=== PATIENT | female | born 1955 | race Caucasian/White ===

== ENCOUNTER 2018-12-28 15:18 | Outpatient (REF) | payer MEDICARE, MEDICAID, SELFPAY ==
[2018-12-28 19:32] LABS: COMMENT (LAB VIEW ONLY) 148.12 mg/dL; Microalb ug/mg Crea 4.3 ug/mg Cr
== END 2018-12-28 15:38 ==
LOC: NCHCN 15:18
PROVIDERS: PCP Nurse Practitioner Family; Visit Provider Nurse Practitioner Family
DX: E11.9 Type 2 diabetes mellitus without complications (principal)
CPT/HCPCS: 82043; 82570

== ENCOUNTER 2019-02-28 14:12 | Outpatient (REF) | payer MEDICARE, MEDICAID, SELFPAY ==
[2019-02-28 19:12] LABS: HCT 44.7 % (36.0-46.0); HGB 14.3 g/dL (12.0-15.5); Mean Corpuscular Hemoglobin 28.8 pg (27.0-33.0); Mean Corpuscular Volume 90.1 fL (80-95); Mean Platelet Volume 10.4 fL (8.0-11.0); Platelet Count 269 x1000/uL (130-400); RBC 4.96 m/cumm (4.00-5.20); RBC Distribution Width 13.5 % (11.7-14.6); White Blood Cell Count 10.55 k/cumm (4.4-10.8)
[2019-02-28 19:24] LABS: ALT 16 U/L (12-78); AST 9 U/L (15-37); Albumin 3.6 g/dL (3.4-5.0); Alkaline Phosphatase 91 U/L (46-116); Anion Gap 8.7 mmol/L (3-11); BUN 17 mg/dL (7-18); Bilirubin, Total 0.3 mg/dL (0.2-1.0); CO2 29.3 mmol/L (21.0-32.0); CREATININE 0.82 mg/dL (0.55-1.02); Chloride 100 mmol/L (98-107); Glucose 224 mg/dL (70-100); Potassium 4.5 mmol/L (3.5-5.1); Sodium 138 mmol/L (136-145); Total Protein 7.1 g/dL (6.4-8.2)
== END 2019-02-28 14:32 ==
LOC: NCHCN 14:12
PROVIDERS: PCP Nurse Practitioner Family; Visit Provider Nurse Practitioner Family
DX: R07.9 Chest pain, unspecified (principal)
CPT/HCPCS: 80053; 85027

== ENCOUNTER 2019-09-05 16:07 | Outpatient (REF) | payer MEDICARE, MEDICAID, SELFPAY ==
[2019-09-05 19:10] LABS: Anion Gap 4.9 mmol/L (3-11); BUN 15 mg/dL (7-18); CO2 32.1 mmol/L (21.0-32.0); CREATININE 0.85 mg/dL (0.55-1.02); Calcium 8.8 mg/dL (8.5-10.1); Chloride 104 mmol/L (98-107); Glucose 100 mg/dL (70-100); Potassium 4.3 mmol/L (3.5-5.1); Sodium 141 mmol/L (136-145); TSH 1.45 uIU/mL (0.36-3.74)
== END 2019-09-05 16:27 ==
LOC: NCHCN 16:07
PROVIDERS: PCP Nurse Practitioner Family; Visit Provider Nurse Practitioner Family
DX: E11.9 Type 2 diabetes mellitus without complications (principal); E03.9 Hypothyroidism, unspecified; I10 Essential (primary) hypertension
CPT/HCPCS: 80048; 84443

== ENCOUNTER 2019-12-13 14:29 | Outpatient (REF) | payer MEDICARE, MEDICAID, SELFPAY ==
[2019-12-13 20:21] LABS: Abs Immature Grans 0.14 k/cumm (0.0-0.09); Absolute Monocyte Count 0.45 k/cumm (0.11-0.7); Basophils % 0.5; Eosinophils % 0.5; HCT 43.3 % (36.0-46.0); HGB 13.9 g/dL (12.0-15.5); Immature Grans % 1.1 %; Lymphocytes % 17.5; Mean Corp. HGB Concentration 32.1 g/dL (32.0-36.0); Mean Corpuscular Hemoglobin 29.1 pg (27.0-33.0); Mean Corpuscular Volume 90.6 fL (80-95); Mean Platelet Volume 10.1 fL (8.0-11.0); Monocytes % 3.5; Neutrophils % 76.9; Platelet Count 297 x1000/uL (130-400); RBC 4.78 m/cumm (4.00-5.20); RBC Distribution Width 13.9 % (11.7-14.6); White Blood Cell Count 12.94 k/cumm (4.4-10.8)
[2019-12-13 20:25] LABS: Absolute Basophil Count 0.06 k/cumm (0.0-0.2); Absolute Eosinophil Count 0.06 k/cumm (0.0-0.7); Absolute Lymphocyte Count 2.26 k/cumm (1.2-3.4); Absolute Neutrophil Count 9.95 k/cumm (1.2-6.7)
[2019-12-13 20:38] LABS: ALT 19 U/L (14-59); AST 10 U/L (15-37); Albumin 3.8 g/dL (3.4-5.0); Alkaline Phosphatase 86 U/L (46-116); Anion Gap 11.7 mmol/L (3-11); BUN 13 mg/dL (7-18); Bilirubin, Total 0.4 mg/dL (0.2-1.0); CO2 29.3 mmol/L (21.0-32.0); Calcium 8.9 mg/dL (8.5-10.1); Chloride 98 mmol/L (98-107); Glucose 214 mg/dL (74-106); Potassium 4.5 mmol/L (3.5-5.1); Sodium 139 mmol/L (136-145); Total Protein 7.3 g/dL (6.4-8.2)
== END 2019-12-13 14:49 ==
LOC: NCHCN 14:29
PROVIDERS: PCP Nurse Practitioner Family; Visit Provider Physician Assistant
DX: R10.30 Lower abdominal pain, unspecified (principal); R19.5 Other fecal abnormalities
CPT/HCPCS: 80053; 85025

== ENCOUNTER 2020-08-09 17:28 | Outpatient (REF) | payer MEDICARE, MEDICAID, SELFPAY ==
[2020-08-09 19:32] LABS: COMMENT (LAB VIEW ONLY) 92.66 mg/dL; Microalb ug/mg Crea 5.4 ug/mg Cr
== END 2020-08-09 17:48 ==
LOC: NCHCN 17:28
PROVIDERS: PCP Nurse Practitioner Family; Visit Provider Internal Medicine
DX: E11.9 Type 2 diabetes mellitus without complications (principal)
CPT/HCPCS: 82043; 82570

== ENCOUNTER 2021-02-11 18:52 | Outpatient (REF) | payer MEDICARE, MEDICAID, SELFPAY ==
[2021-02-13 18:31] LABS: COVID-19 RT-PCR UVMMC Result Negative (Negative)
== END 2021-02-11 18:53 | disposition home or self-care (01) ==
LOC: NCHCN 18:52
PROVIDERS: PCP Nurse Practitioner Family; Visit Provider Internal Medicine
DX: Z20.822 Contact with and (suspected) exposure to COVID-19 (principal)
CPT/HCPCS: U0003

== ENCOUNTER 2021-02-15 16:29 | Outpatient (REF) | payer MEDICARE, MEDICAID, SELFPAY ==
[2021-02-16 17:02] LABS: COVID-19 RT-PCR UVMMC Result Positive (Negative)
== END 2021-02-15 16:30 | disposition home or self-care (01) ==
LOC: NCHCN 16:29
PROVIDERS: PCP Nurse Practitioner Family; Visit Provider Internal Medicine
DX: Z20.822 Contact with and (suspected) exposure to COVID-19 (principal)
CPT/HCPCS: U0003; U0005

== ENCOUNTER 2021-02-18 10:11 | Outpatient (CLI) | payer MEDICARE, MEDICAID, SELFPAY ==
[2021-02-18 13:19] VITALS: BP 154/83; PULSE 85; RESP 24; TEMP 38.2; O2SAT 96
[2021-02-18] MEDS: Normal Saline Flush 10 ML SYR IVP (13:31)
[2021-02-18] MEDS: Normal Saline 500 ML 30 ML IV (13:31)
[2021-02-18 13:38] VITALS: BP 125/76; PULSE 80; RESP 20; TEMP 38.2; O2SAT 94
[2021-02-18 14:09] VITALS: BP 145/79; PULSE 80; RESP 20; TEMP 38; O2SAT 92
[2021-02-18 14:40] VITALS: BP 149/83; PULSE 84; RESP 20; TEMP 38.1; O2SAT 94
[2021-02-18 15:08] VITALS: BP 135/84; PULSE 81; RESP 20; TEMP 37; O2SAT 92
== END 2021-02-18 10:12 | disposition home or self-care (01) ==
LOC: INF 10:14
PROVIDERS: PCP Nurse Practitioner Family; Visit Provider Family Medicine
DX: U07.1 COVID-19 (principal)
CPT/HCPCS: 96365

== ENCOUNTER 2021-03-26 15:17 | Outpatient (REF) | payer MEDICARE, MEDICAID, SELFPAY ==
[2021-03-26 18:45] LABS: Hemoglobin A1C 7.5 % (<5.7)
[2021-03-26 18:54] LABS: ALT 25 U/L (14-59); AST 13 U/L (15-37); Albumin 3.5 g/dL (3.4-5.0); Alkaline Phosphatase 88 U/L (46-116); Anion Gap 9.3 mmol/L (3-11); BUN 12 mg/dL (7-18); Bilirubin, Total 0.4 mg/dL (0.2-1.0); CO2 30.7 mmol/L (21.0-32.0); CREATININE 0.8 mg/dL (0.55-1.02); Calcium 8.6 mg/dL (8.5-10.1); Calculated LDL 164 mg/dL (<100); Chloride 102 mmol/L (98-107); Cholesterol 244 mg/dL (<200); Glucose 66 mg/dL (74-106); HDL Cholesterol 52 mg/dL (40-60); Potassium 4.4 mmol/L (3.5-5.1); Sodium 142 mmol/L (136-145); TSH 7.57 uIU/mL (0.36-3.74); Total Protein 7.1 g/dL (6.4-8.2); Triglyceride 140 mg/dL (<150)
== END 2021-03-26 15:18 | disposition home or self-care (01) ==
LOC: NCHCN 15:17
PROVIDERS: PCP Nurse Practitioner Family; Visit Provider Nurse Practitioner Family
DX: E11.9 Type 2 diabetes mellitus without complications (principal); I10 Essential (primary) hypertension; E78.5 Hyperlipidemia, unspecified; E03.9 Hypothyroidism, unspecified
CPT/HCPCS: 80053; 80061; 83036; 84443

== ENCOUNTER 2021-05-23 16:23 | Outpatient (REF) | payer MEDICARE, MEDICAID, SELFPAY ==
[2021-05-24 21:20] LABS: Calculated LDL 63 mg/dL (<100); Cholesterol 132 mg/dL (<200); HDL Cholesterol 56 mg/dL (40-60); Triglyceride 68 mg/dL (<150)
== END 2021-05-23 16:24 | disposition home or self-care (01) ==
LOC: NCHCN 16:23
PROVIDERS: PCP Nurse Practitioner Family; Visit Provider Nurse Practitioner Family
DX: E78.5 Hyperlipidemia, unspecified (principal)
CPT/HCPCS: 80061; 82565

== ENCOUNTER 2021-06-27 15:16 | Outpatient (REF) | payer MEDICARE, MEDICAID, SELFPAY ==
[2021-06-29 13:22] LABS: COVID-19 RT-PCR UVMMC Result Negative (Negative)
== END 2021-06-27 15:17 | disposition home or self-care (01) ==
LOC: NCHCN 15:16
PROVIDERS: PCP Nurse Practitioner Family; Visit Provider Nurse Practitioner Family
DX: Z20.822 Contact with and (suspected) exposure to COVID-19 (principal); R05 Cough
CPT/HCPCS: U0003

== ENCOUNTER 2021-09-05 16:17 | Outpatient (REF) | payer MEDICARE, MEDICAID, SELFPAY ==
[2021-09-05 19:46] LABS: Abs Immature Grans 0.04 10^3/uL (0.0-0.06); Absolute Basophil Count 0.08 10^3/uL (0.0-0.2); Absolute Eosinophil Count 0.23 10^3/uL (0.0-0.7); Absolute Lymphocyte Count 2.93 10^3/uL (1.2-3.4); Absolute Monocyte Count 0.52 10^3/uL (0.1-0.8); Absolute Neutrophil Count 5.54 10^3/uL (1.2-6.7); Basophils % 0.9; Eosinophils % 2.5; HCT 38.3 % (36.0-46.0); Immature Grans % 0.4; Lymphocytes % 31.4; MCHC 31.3 % (32.0-36.0); MCV 89.5 fL (80-95); MPV 10.3 fL (8.0-11.0); Monocytes % 5.6; Neutrophils % 59.2; Nucleated RBC 0 %; Platelet Count 258 10^3/uL (130-400); RBC 4.28 10^6/uL (3.93-5.22); RDW 13.8 % (11.7-14.6); WBC 9.34 10^3/uL (4.4-10.8)
[2021-09-05 20:01] LABS: Hemoglobin A1C 7.4 % (<5.7)
[2021-09-05 20:06] LABS: ALT 19 U/L (14-59); AST 11 U/L (15-37); Albumin 3.4 g/dL (3.4-5.0); Alkaline Phosphatase 84 U/L (46-116); Anion Gap 5.5 mmol/L (3-11); BUN 16 mg/dL (7-18); Bilirubin, Total 0.3 mg/dL (0.2-1.0); CO2 32.5 mmol/L (21.0-32.0); CREATININE 0.7 mg/dL (0.55-1.02); Chloride 103 mmol/L (98-107); Glucose 123 mg/dL (74-106); Potassium 4.2 mmol/L (3.5-5.1); Sodium 141 mmol/L (136-145); TSH (W/Ref FT4) 1.52 uIU/mL (0.36-3.74)
== END 2021-09-05 16:18 | disposition home or self-care (01) ==
LOC: NCHCN 16:17
PROVIDERS: PCP Nurse Practitioner Family; Visit Provider Nurse Practitioner Family
DX: E11.9 Type 2 diabetes mellitus without complications (principal); R53.83 Other fatigue; K62.5 Hemorrhage of anus and rectum
CPT/HCPCS: 80053; 83036; 84443; 85025

== ENCOUNTER 2022-08-12 16:13 | Outpatient (REF) | payer MEDICARE, MEDICAID, SELFPAY ==
[2022-08-12 19:07] LABS: Abs Immature Grans 0.03 10^3/uL (0.0-0.06); Absolute Basophil Count 0.09 10^3/uL (0.0-0.2); Absolute Eosinophil Count 0.17 10^3/uL (0.0-0.7); Absolute Lymphocyte Count 2.22 10^3/uL (1.2-3.4); Absolute Monocyte Count 0.67 10^3/uL (0.1-0.8); Absolute Neutrophil Count 6.25 10^3/uL (1.2-6.7); Eosinophils % 1.8; HCT 33.7 % (36.0-46.0); HGB 10.1 g/dL (11.2-15.7); Immature Grans % 0.3; Lymphocytes % 23.5; MCH 24.1 pg (27.0-33.0); MCV 80 fL (80-95); Monocytes % 7.1; Neutrophils % 66.3; Platelet Count 313 10^3/uL (130-400); RBC 4.19 10^6/uL (3.93-5.22); RDW 16.1 % (11.7-14.6); RDW-SD 46.5 fL; WBC 9.43 10^3/uL (4.4-10.8)
[2022-08-12 19:56] LABS: Anion Gap 5.2 mmol/L (3-11); BUN 13 mg/dL (7-18); CO2 31.8 mmol/L (21.0-32.0); CREATININE 0.8 mg/dL (0.55-1.02); Calcium 9.2 mg/dL (8.5-10.1); Chloride 103 mmol/L (98-107); Estimated GFR 81.21 (mL/min/1.73m2); Glucose 218 mg/dL (74-106); Sodium 140 mmol/L (136-145)
== END 2022-08-12 16:14 | disposition home or self-care (01) ==
LOC: NCHCN 16:13
PROVIDERS: PCP Nurse Practitioner Family; Visit Provider Nurse Practitioner Family
DX: E87.1 Hypo-osmolality and hyponatremia (principal); D64.9 Anemia, unspecified
CPT/HCPCS: 80048; 85025

== ENCOUNTER 2022-12-04 17:12 | Outpatient (REF) | payer MEDICARE, MEDICAID, SELFPAY ==
[2022-12-04 18:57] LABS: Bilirubin Negative (Negative); Blood Moderate (Negative); Clarity Clear (Clear); Glucose Negative (Negative); Ketones Negative (Negative); Leukocyte Esterase Moderate (Negative); Nitrite Negative (Negative); Specific Gravity 1.015 (1.005-1.025); Urobilinogen 0.2 EU/dL (Up TO 0.2); pH >= 9.0 (5-8)
[2022-12-04 19:06] LABS: Bacteria Negative HPF (Negative); C & S Indicated? No; Casts Negative LPF (Negative); Crystals Negative HPF (Negative); Epithelial Cells Rare HPF (Negative); Mucus Negative (Negative); Other Cells Negative (Negative)
== END 2022-12-04 17:13 | disposition home or self-care (01) ==
LOC: NCHCN 17:12
PROVIDERS: PCP Nurse Practitioner Family; Visit Provider Nurse Practitioner Family
DX: R30.0 Dysuria (principal); L29.2 Pruritus vulvae
CPT/HCPCS: 87077; 81003; 81015; 87086; 87186; 87480; 87510; 87660

== ENCOUNTER 2022-12-08 13:19 | Outpatient (REF) | payer MEDICARE, MEDICAID, SELFPAY ==
[2022-12-08 19:25] LABS: Bilirubin Negative (Negative); Blood Negative (Negative); Clarity Clear (Clear); Glucose Negative (Negative); Ketones Negative (Negative); Leukocyte Esterase Negative (Negative); Nitrite Negative (Negative); Urobilinogen 0.2 EU/dL (Up TO 0.2)
[2022-12-08 20:04] LABS: Bacteria Negative HPF (Negative); C & S Indicated? No; Casts Negative LPF (Negative); Crystals Negative HPF (Negative); Epithelial Cells Few HPF (Negative); Mucus Negative (Negative); Other Cells Negative (Negative); RBC 0-2 HPF (0-2); WBC 0-2 HPF (0-5)
== END 2022-12-08 13:20 | disposition home or self-care (01) ==
LOC: NCHCN 13:19
PROVIDERS: PCP Nurse Practitioner Family; Visit Provider Nurse Practitioner Family
DX: R30.0 Dysuria (principal)
CPT/HCPCS: 81003; 81015

== ENCOUNTER 2023-03-09 10:55 | Emergency (ER) | payer MEDICARE, MEDICAID, SELFPAY ==
[2023-03-09 10:58] VITALS: BP 155/79; PULSE 85; RESP 20; TEMP 36.5; O2SAT 96
--- NOTE | 2023-03-09 11:00 | RT.EKG_ITS ---
APPROVED REPORT Exam: Resting ECG Reason for Exam: chest pain Patient Location: E HR:87 bpm ECG Measurements Heart Rate 87 AXIS UT 142 P 63 QRSd 91 QRS -12 QT 390 T 28 QTc 469 Conclusion Sinus rhythm...normal P axis, V-rate 60- 99 Inferior infarct, old...Q >35mS, II III aVF
--- NOTE | 2023-03-09 12:00 | DI.RAD_ITS ---
Exam(s) XR PORTABLE CHEST AP EXAM: XR PORTABLE CHEST AP CLINICAL HISTORY: shortness of breath, cough TECHNIQUE: 2D digital imaging was performed of the chest. One image was obtained. An AP view was ob tained. COMPARISON: CR ABD FLAT UPRIGHT PA CHEST from 07/15/2016 FINDINGS: MEDIASTINUM: Normal. HEART: Upper limits of normal in size given the AP projection and semi upright position. PULMONARY VASCULATURE: Normal. LUNGS: Clear. PLEURAL SPACE: No pleural effusion or pneumothorax. BONE:Within normal limits for the patient's age. OTHER FINDINGS:There is elevation of the right hemidiaphragm again noted. IMPRESSION: No acute pulmonary findings. DATA REPOSITORY: RADIATION DOSE DELIVERED:
[2023-03-09 12:19] LABS: Abs Immature Grans 0.03 10^3/uL (0.0-0.06); Absolute Basophil Count 0.08 10^3/uL (0.0-0.2); Absolute Eosinophil Count 0.12 10^3/uL (0.0-0.7); Absolute Monocyte Count 0.37 10^3/uL (0.1-0.8); Absolute Neutrophil Count 4.98 10^3/uL (1.2-6.7); Eosinophils % 1.5; HCT 39.6 % (36.0-46.0); HGB 11.9 g/dL (11.2-15.7); Immature Grans % 0.4; Lymphocytes % 30.9; MCH 25.3 pg (27.0-33.0); MCHC 30.1 % (32.0-36.0); MCV 84 fL (80-95); MPV 9.9 fL (8.0-11.0); Monocytes % 4.6; Neutrophils % 61.6; Platelet Count 316 10^3/uL (130-400); RDW 22.9 % (11.7-14.6); RDW-SD 70.3 fL; WBC 8.08 10^3/uL (4.4-10.8)
[2023-03-09] MEDS: Furosemide 20 MG/2 ML VIAL IVP (12:24)
[2023-03-09 12:37] LABS: ALT 14 U/L (14-59); AST 15 U/L (15-37); Albumin 3.4 g/dL (3.4-5.0); Alkaline Phosphatase 78 U/L (46-116); Anion Gap 6.8 mmol/L (3-11); BUN 10 mg/dL (7-18); Bilirubin, Total 0.3 mg/dL (0.2-1.0); CO2 32.2 mmol/L (21.0-32.0); CREATININE 0.7 mg/dL (0.55-1.02); Calcium 9.8 mg/dL (8.5-10.1); Chloride 106 mmol/L (98-107); Estimated GFR 95.32 (mL/min/1.73m2); Glucose 183 mg/dL (74-106); Magnesium 1.7 mg/dL (1.8-2.4); NT-proBNP 5031 pg/mL (<300); Potassium 3.7 mmol/L (3.5-5.1); Sodium 145 mmol/L (136-145); Total Protein 7.9 g/dL (6.4-8.2); Troponin I < 50 ng/L (<or=60)
[2023-03-09 12:38] LABS: Anisocytosis 1+
[2023-03-09 13:42] VITALS: RESP 20
--- NOTE | 2023-03-09 13:59 | ED.GENADUL_ITS ---
Discharge Plan Disposition Patient Disposition: Home Condition: Stable Discharge Details Clinical Impression: Acute exacerbation of CHF (congestive heart failure), Hypomagnesemia Primary Care Provider: Jazmin Garcias ED Provider: Gurwinder Bradley Home Meds and New Rx's Prescriptions: New furosemide [Lasix] 20 mg tablet 20 mg PO DAILY Qty: 14 0RF Rx Instructions: start 03/10/23 spironolactone 50 mg tablet 50 mg PO DAILY Qty: 14 0RF Rx Instructions: start 03/09/23 Continued (DME) pen needle, diabetic [BD Ultra-Fine Lexus Pen Needle] 32 gauge x needle See Rx Instructions .ROUTE .MEDSUPPLY Qty: 50 Rx Instructions: As directed nitroglycerin 0.4 mg tablet, sublingual 0.4 mg sublingual Q5M PRN Rx Instructions: do not exceed 3 doses per episode insulin glargine [Basaglar KwikPen U-100 Insulin] 100 unit/mL (3 mL) insulin pen See Rx Instructions subcut DIRECTED Patient Comments: 65 units in morning Rx Instructions: subcut as directed; lorazepam 1 mg tablet 1 mg PO TID PRN (Reason: anxiety) Qty: 90 0RF albuterol sulfate [Ventolin HFA] 90 mcg/actuation HFA aerosol inhaler 2 puff inhalation QID Qty: 6.7 0RF albuterol sulfate 0.63 mg/3 mL solution for nebulization 0.63 mg inhalation QID PRN (Reason: shortness of breath or wheezing) Qty: 90 3RF ipratropium bromide 0.02 % solution 2.5 ml inhalation Q4H PRN Qty: 75 3RF albuterol sulfate 2.5 mg /3 mL (0.083 %) solution for nebulization 2.5 mg continuous nebulization ONCE Qty: 3 0RF clopidogrel 75 mg tablet 75 mg PO DAILY omeprazole 20 mg capsule,delayed release(DR/EC) 20 mg PO DAILY Patient Comments: not on med list atorvastatin 20 mg tablet 80 mg PO DAILY Patient Comments: Pt states she takes 100mg daily (DME) Oxygen Tank See Rx Instructions .ROUTE .MEDSUPPLY Qty: 1 0RF Rx Instructions: 3.5 LPM at night, 4LPM with exertion budesonide-formoterol [Symbicort] 160-4.5 mcg/actuation HFA aerosol inhaler 2 puff inhalation BID Qty: 10.2 12RF Spiriva Respimat 2.5 mcg/actuation mist 2 inh inhalation QAM Qty: 4 12RF roflumilast 500 mcg tablet 500 mcg PO DAILY Qty: 90 12RF Rx Instructions: Start after the 250mcg dosage aspirin 81 mg Tablet,Delayed Release (Dr/Ec) 81 mg PO DAILY carvedilol 6.25 mg tablet 6.25 mg PO BID Patient Comments: TAKE ONE TABLET BY MOUTH TWICE A DAY docusate sodium 100 mg Capsule 100 mg PO DAILY calcium carbonate 550 mg Tablet,Chewable 1,000 mg PO TID duloxetine 30 mg Capsule,Delayed Release(Dr/Ec) 30 mg PO DAILY levothyroxine 100 mcg tablet 100 mcg PO DAILY Patient Comments: TAKE ONE TABLET BY MOUTH EVERY DAY sertraline 25 mg tablet 25 mg PO DAILY Patient Comments: TAKE ONE TABLET BY MOUTH EVERY DAY Discontinued lisinopril 10 mg tablet 10 mg PO DAILY Patient Comments: not on med list metoclopramide HCl 5 mg tablet 5 mg PO TID Patient Comments: not on med list Rx Instructions: administer 30 minutes before meals prednisone 10 mg tablet See Rx Instructions .ROUTE .COMPLEX Qty: 40 0RF Dose Instruction: TAKE ONE TABLET BY MOUTH EVERY DAY Patient Comments: not on med list Rx Instructions: TAKE ONE TABLET BY MOUTH EVERY DAY Discharge Instructions Instructions: Heart Failure (ED), Hypomagnesemia (ED) Additional Instructions: Please contact your primary care physician to arrange follow-up to be seen in 2 days. Return to the ER immediately for any worsening or new concerning symptoms. Referrals: Jazmin Garcias [Primary Care Provider] - Discharge Data Discharge Date/Time-TO BE ENTERED AT DEPARTURE: 03/09/23 14:36 Medical Decision Making 1400 --67-year-old female with multiple medical problem including history of COPD, coronary artery disease status post stent, recently discharged from nursing rehab facility about 2 weeks ago, now with progressive shortness of breath over the past 2 to 3 days with associated cough, heaviness in her chest and bilateral lower extremity edema with 3 pound weight gain. Suspect acute CHF exacerbation. EKG was reviewed and interpreted by me: Please report, nondiagnostic. Labs reviewed and consistent with CHF. BNP is elevated. Considered ACS and troponin is normal. Patient is saturating in the mid 90s on nasal cannula oxygen which she uses intermittently at home for her COPD. She is in no respiratory distress. Chest x-ray was reviewed and interpreted by radiology: No acute pulmonary findings. Patient was given furosemide 20 mg IV and has had significant urinary output. Patient's PCP, Dr. Hernández, discussed ED presentation course, he will ensure timely outpatient followup reassessment. He recommends spironolactone 50 mg daily and continue Lasix 20 mg daily. Disposition decision was made weighing the risks and benefits of hospitalization versus outpatient treatment, the risk for further decompensation, and the patient's wishes. The patient was stable and requested discharge. Prior to discharge, my usual and customary return precautions were reviewed with the patient - this included follow-up instructions and reason to return to the emergency department if condition worsens, does not improve as expected, or other new concerns arise. Lab Data Lab results reviewed: Yes I reviewed the patient's lab results. Labs: Laboratory Tests Range/Units 03/09/23 03/09/23 11:35 11:35 WBC (4.4-10.8) 10^3/uL 8.08 RBC (3.93-5.22) 10^6/uL 4.70 Hgb (11.2-15.7) g/dL 11.9 Hct (36.0-46.0) % 39.6 MCV (80-95) fL 84 MCH (27.0-33.0) pg 25.3 L MCHC (32.0-36.0) % 30.1 L RDW (11.7-14.6) % 22.9 H Plt Count (130-400) 10^3/uL 316 MPV (8.0-11.0) fL 9.9 Immature Gran % 0.4 Neutrophils % 61.6 Lymphocytes % 30.9 Monocytes % 4.6 Eosinophils % 1.5 Basophils % 1.0 Nucleated RBC % (0.0-0.3) % 0.0 Absolute Neutrophils (1.2-6.7) 10^3/uL 4.98 Absolute Lymphocytes (1.2-3.4) 10^3/uL 2.50 Absolute Monocytes (0.1-0.8) 10^3/uL 0.37 Absolute Eosinophils (0.0-0.7) 10^3/uL 0.12 Absolute Basophils (0.0-0.2) 10^3/uL 0.08 RBC Morphology See Below Anisocytosis 1+ Sodium (136-145) mmol/L 145 Potassium (3.5-5.1) mmol/L 3.7 Chloride (98-107) mmol/L 106 Carbon Dioxide (21.0-32.0) mmol/L 32.2 H Anion Gap (3-11) mmol/L 6.8 BUN (7-18) mg/dL 10 Creatinine (0.55-1.02) mg/dL 0.7 Est GFR (CKD-EPI 2020) (mL/min/1.73m2) 95.32 Glucose (74-106) mg/dL 183 H Calcium (8.5-10.1) mg/dL 9.8 Magnesium (1.8-2.4) mg/dL 1.7 L Total Bilirubin (0.2-1.0) mg/dL 0.3 AST (15-37) U/L 15 ALT (14-59) U/L 14 Alkaline Phosphatase (46-116) U/L 78 Troponin I (<or=60) ng/L < 50 NT-Pro-B Natriuret Pep (<300) pg/mL 5031 H Total Protein (6.4-8.2) g/dL 7.9 Albumin (3.4-5.0) g/dL 3.4 HPI General Mode of arrival: ambulatory . Date/Time Provider Initiated Documentation: 03/09/23 11:10 . Limitations to Documentation: no limitations . Information obtained by: patient . HPI Narrative: 67-year-old female with multiple medical problems including history of COPD, coronary artery disease status post stent in 01/29, recently discharged from nursing rehab facility to home 2 weeks ago, now with shortness of breath progressing over the past 2 to 3 days with associated chest heaviness. Patient has had 3 pound weight gain in the last 3 days. She notes bilateral lower extremity edema. Symptoms are moderate. Patient is currently not on diuretic. Related Data Home Medications Medication Instructions Recorded Confirmed nitroglycerin 0.4 mg sublingual 0.4 mg sublingual Q5M PRN 05/27/21 03/09/23 tablet pen needle, diabetic 32 gauge x #50 ea 05/27/21 10/13/22 (BD Ultra-Fine Lexus Pen Needle) atorvastatin 20 mg tablet 80 mg PO DAILY 09/06/21 03/09/23 insulin glargine 100 unit/mL (3 See Rx Instructions subcut 02/17/22 03/09/23 mL) subcutaneous pen (Basaglar DIRECTED KwikPen U-100 Insulin) clopidogrel 75 mg tablet 75 mg PO DAILY 06/11/22 03/09/23 omeprazole 20 mg capsule,delayed 20 mg PO DAILY 06/11/22 03/09/23 release Oxygen #1 ea 10/10/22 10/13/22 albuterol sulfate 0.63 mg/3 mL 0.63 mg (3 mL) inhalation QID PRN 10/13/22 03/09/23 solution for nebulization shortness of breath or wheezing #90 mL albuterol sulfate 90 mcg/actuation 2 puff inhalation QID #6.7 grams 10/13/22 03/09/23 aerosol inhaler (Ventolin HFA) ipratropium bromide 0.02 % 2.5 ml inhalation Q4H PRN 10/13/22 03/09/23 solution for inhalation nebulizer #75 mL lorazepam 1 mg tablet 1 mg PO TID PRN anxiety #90 tabs 10/13/22 03/09/23 budesonide-formoterol HFA 160 2 puff inhalation BID #10.2 grams 10/20/22 03/09/23 mcg-4.5 mcg/actuation aerosol inhaler (Symbicort) tiotropium bromide 2.5 2 inh inhalation QAM #4 grams 10/20/22 03/09/23 mcg/actuation mist for inhalation (Spiriva Respimat) roflumilast 500 mcg tablet 500 mcg PO DAILY #90 tabs 03/03/23 03/09/23 aspirin 81 mg tablet,delayed 81 mg PO DAILY 03/09/23 03/09/23 release calcium carbonate 550 mg chewable 1,000 mg PO TID 03/09/23 03/09/23 tablet carvedilol 6.25 mg tablet 6.25 mg PO BID 03/09/23 03/09/23 docusate sodium 100 mg capsule 100 mg PO DAILY 03/09/23 03/09/23 duloxetine 30 mg capsule,delayed 30 mg PO DAILY 03/09/23 03/09/23 release furosemide 20 mg tablet (Lasix) 20 mg PO DAILY #14 tabs 03/09/23 levothyroxine 100 mcg tablet 100 mcg PO DAILY 03/09/23 03/09/23 sertraline 25 mg tablet 25 mg PO DAILY 03/09/23 03/09/23 spironolactone 50 mg tablet 50 mg PO DAILY #14 tabs 03/09/23 Previous Rx's Medication Instructions Recorded Oxygen #1 ea 10/10/22 albuterol sulfate 0.63 mg/3 mL 0.63 mg (3 mL) inhalation QID PRN 10/13/22 solution for nebulization shortness of breath or wheezing #90 mL albuterol sulfate 90 mcg/actuation 2 puff inhalation QID #6.7 grams 10/13/22 aerosol inhaler (Ventolin HFA) ipratropium bromide 0.02 % 2.5 ml inhalation Q4H PRN 10/13/22 solution for inhalation nebulizer #75 mL lorazepam 1 mg tablet 1 mg PO TID PRN anxiety #90 tabs 10/13/22 budesonide-formoterol HFA 160 2 puff inhalation BID #10.2 grams 10/20/22 mcg-4.5 mcg/actuation aerosol inhaler (Symbicort) tiotropium bromide 2.5 2 inh inhalation QAM #4 grams 10/20/22 mcg/actuation mist for inhalation (Spiriva Respimat) roflumilast 500 mcg tablet 500 mcg PO DAILY #90 tabs 03/03/23 furosemide 20 mg tablet (Lasix) 20 mg PO DAILY #14 tabs 03/09/23 spironolactone 50 mg tablet 50 mg PO DAILY #14 tabs 03/09/23 Allergies Allergy/AdvReac Type Severity Reaction Status Date / Time cephalexin monohydrate Allergy Severe Tongue Unverified 03/09/23 11:04 [From Keflex] swelling, difficult to breath Macrolide Antibiotics Allergy Severe facial Verified 03/09/23 11:04 swelling Penicillins Allergy Severe Swelling, Unverified 03/09/23 11:04 throat closes up azithromycin Allergy Intermediate GI upset, Unverified 03/09/23 11:04 itching codeine Allergy Intermediate Skin Rash, Unverified 03/09/23 11:04 itching Latex, Natural Rubber AdvReac Severe Blister Unverified 03/09/23 11:04 General Stated Complaint: SOB POLI: 3 Review of Systems All systems reviewed & are unremarkable except as noted in HPI and below Constitutional Constitutional: Denies fever(s) PFSH All Active Problems (Updated 03/09/23 @ 14:10 by Gurwinder Bradley MD) Acute exacerbation of CHF (congestive heart failure) (Acute) Hypomagnesemia (Acute) COPD exacerbation (Acute) Nicotine dependence, cigarettes, uncomplicated (Acute) Disorder of trunk (Acute) Pain in right knee (Acute) Synovial cyst of popliteal space (Acute) Non-compliance with treatment (Acute) Epigastric pain (Acute) Right lower quadrant pain (Acute) Abdominal pain (Acute) Urinary incontinence, mixed (Acute) Chest pain (Acute) Snoring (Acute) Dyspnea (Acute) Disorder of hyperalimentation (Acute) Hypersomnia with sleep apnea (Acute) Back pain (Acute) Joint pain (Acute) Idiopathic osteoarthritis (Acute) Constipation (Acute) Diverticulitis of colon (Acute) Chronic tracheobronchitis (Acute) Chronic bronchitis with emphysema (Acute) Tracheobronchitis (Acute) Chronic ischemic heart disease (Acute) Acute allergic mucoid otitis media (Acute) Obstructive sleep apnea syndrome in adult (Acute) Hypersomnia (Acute) Spondylosis of lumbar region without myelopathy or radiculopathy (Acute) GERD (gastroesophageal reflux disease) (Acute) Medical History Allergic asthma Anxiety ASCVD (arteriosclerotic cardiovascular disease) Chronic kidney disease COPD (chronic obstructive pulmonary disease) Depression DM type 2 (diabetes mellitus, type 2) GERD (gastroesophageal reflux disease) History of COVID-19 02/16/2021 Hyperlipidemia Hypertension Hypothyroidism Morbid obesity Personal history of colonic polyps Tobacco abuse Surgical History Appendectomy 1981 section x2 Cholecystectomy 04/23/2012 Colonoscopy - MAC (06/13/16) EGD - MAC (06/13/16) History of hemorrhoidectomy 1999 History of tubal ligation 1980 Family History Mother Hypertension COPD (chronic obstructive pulmonary disease) Renal failure syndrome Father Hypertension COPD (chronic obstructive pulmonary disease) Coronary artery disease Social History Smoking/Tobacco Use Status: Former Tobacco Use Quit Date: 12/10/22 Tobacco: How many years used: 50 Smoking risk assessment performed?: Yes Alcohol Intake: never Drug use: Daily Substance use type: does not use Communication Needs: Corrective Lenses Pets and animals: Yes (2 dogs, 1 cat) Do you feel safe at home: Yes Do you feel safe in your relationship?: Yes Exam Const General: cooperative and no acute distress HENMT Mouth: moist mucous membranes Eyes Conjunctivae: normal conjunctivae Sclera: normal sclerae Neck Neck: trachea midline and supple Resp Auscultation: clear to auscultation bilaterally, no rales, no rhonchi and no wheezes Cardio Rate: regular rate and not tachycardic Rhythm: regular rhythm GI Palpation: soft, not firm, no guarding, no masses, not rigid and nontender Skin General skin exam: no rashes or lesions noted Neuro General: patient alert, patient awake and tone normal Extrem General: edema Laterality: bilateral (1+ distal LEs) Psych Appearance: grossly normal Mental Status: mental status grossly normal Course Vital Signs Vital signs: Vital Signs Temperature 36.5 C 03/09/23 10:58 Pulse 85 03/09/23 10:58 Respiratory Rate 20 03/09/23 10:58 Blood Pressure 155/79 H 03/09/23 10:58 Pulse Oximetry 96 03/09/23 10:58 Temperature 36.5 C 03/09/23 10:58 Temperature Source Oral 03/09/23 10:58 Pulse 85 03/09/23 10:58 Respiratory Rate 20 03/09/23 13:42 Respiratory Effort Normal, Short of Breath, Incrsd Work of Breathing 03/09/23 13:42 Respiratory Depth Normal 03/09/23 13:42 Respiratory Pattern Tachypnea 03/09/23 13:42 Blood Pressure 155/79 H 03/09/23 10:58 Blood Pressure Position Sitting 03/09/23 10:58 Pulse Oximetry 96 03/09/23 10:58 Oxygen Delivery Method Room Air 03/09/23 10:58 Oxygen Flow Rate 0 03/09/23 10:58 Pain Level 5 03/09/23 10:58 Lab/Test Results Lab/Test Results: Laboratory Tests Range/Units 03/09/23 03/09/23 11:35 11:35 WBC (4.4-10.8) 10^3/uL 8.08 RBC (3.93-5.22) 10^6/uL 4.70 Hgb (11.2-15.7) g/dL 11.9 Hct (36.0-46.0) % 39.6 MCV (80-95) fL 84 MCH (27.0-33.0) pg 25.3 L MCHC (32.0-36.0) % 30.1 L RDW (11.7-14.6) % 22.9 H Plt Count (130-400) 10^3/uL 316 MPV (8.0-11.0) fL 9.9 Immature Gran % 0.4 Neutrophils % 61.6 Lymphocytes % 30.9 Monocytes % 4.6 Eosinophils % 1.5 Basophils % 1.0 Nucleated RBC % (0.0-0.3) % 0.0 Absolute Neutrophils (1.2-6.7) 10^3/uL 4.98 Absolute Lymphocytes (1.2-3.4) 10^3/uL 2.50 Absolute Monocytes (0.1-0.8) 10^3/uL 0.37 Absolute Eosinophils (0.0-0.7) 10^3/uL 0.12 Absolute Basophils (0.0-0.2) 10^3/uL 0.08 RBC Morphology See Below Anisocytosis 1+ Sodium (136-145) mmol/L 145 Potassium (3.5-5.1) mmol/L 3.7 Chloride (98-107) mmol/L 106 Carbon Dioxide (21.0-32.0) mmol/L 32.2 H Anion Gap (3-11) mmol/L 6.8 BUN (7-18) mg/dL 10 Creatinine (0.55-1.02) mg/dL 0.7 Est GFR (CKD-EPI 2020) (mL/min/1.73m2) 95.32 Glucose (74-106) mg/dL 183 H Calcium (8.5-10.1) mg/dL 9.8 Magnesium (1.8-2.4) mg/dL 1.7 L Total Bilirubin (0.2-1.0) mg/dL 0.3 AST (15-37) U/L 15 ALT (14-59) U/L 14 Alkaline Phosphatase (46-116) U/L 78 Troponin I (<or=60) ng/L < 50 NT-Pro-B Natriuret Pep (<300) pg/mL 5031 H Total Protein (6.4-8.2) g/dL 7.9 Albumin (3.4-5.0) g/dL 3.4
[2023-03-09] MEDS: Magnesium Oxide 400 MG TAB PO (14:35)
--- NOTE | 2023-03-09 17:05 | NUR.NOTE ---
Nursing Note: Referral faxed to PCP for CHF acute within 2 days. Spoke anastasiia Marrero from [facility] about this pt.
== END 2023-03-09 14:36 | disposition home or self-care (01) ==
PROVIDERS: Emergency Provider Student in an Organized Health Care Education/Training Program; PCP Nurse Practitioner Family
DX: I50.9 Heart failure, unspecified (principal); E83.42 Hypomagnesemia; J44.9 Chronic obstructive pulmonary disease, unspecified; I25.810 Atherosclerosis of coronary artery bypass graft(s) without angina pectoris; Z95.5 Presence of coronary angioplasty implant and graft
CPT/HCPCS: 80053; 93005; 96374; 99284; 71045; 83735; 83880; 84484; 85025; 93010; J1941

== ENCOUNTER 2023-03-17 18:32 | Outpatient (REF) | payer MEDICARE, MEDICAID, SELFPAY ==
[2023-03-17 19:19] LABS: HCT 39.4 % (36.0-46.0); MCHC 30.5 % (32.0-36.0); MCV 86 fL (80-95); MPV 10.9 fL (8.0-11.0); Platelet Count 320 10^3/uL (130-400); RBC 4.61 10^6/uL (3.93-5.22); RDW-SD 67.6 fL; WBC 8.96 10^3/uL (4.4-10.8)
[2023-03-17 19:56] LABS: Anion Gap 6.3 mmol/L (3-11); BUN 13 mg/dL (7-18); CO2 32.7 mmol/L (21.0-32.0); CREATININE 0.8 mg/dL (0.55-1.02); Calcium 9.9 mg/dL (8.5-10.1); Chloride 100 mmol/L (98-107); Estimated GFR 81.21 (mL/min/1.73m2); Glucose 214 mg/dL (74-106); Magnesium 1.9 mg/dL (1.8-2.4); NT-proBNP 1917 pg/mL (<300); Potassium 4.4 mmol/L (3.5-5.1); Sodium 139 mmol/L (136-145)
[2023-03-17 20:03] LABS: RDW 21.9 % (11.7-14.6)
== END 2023-03-17 18:33 | disposition home or self-care (01) ==
LOC: NCHCN 18:32
PROVIDERS: PCP Nurse Practitioner Family; Visit Provider Nurse Practitioner Family
DX: I50.9 Heart failure, unspecified (principal); D64.9 Anemia, unspecified; R04.0 Epistaxis
CPT/HCPCS: 80048; 85027; 83735; 83880

== ENCOUNTER 2023-04-13 01:45 | Outpatient (CLI) | payer MEDICARE, MEDICAID, SELFPAY ==
--- NOTE | 2023-04-13 | DI.MAMMO_ITS ---
Exam(s) MAMMO SCREENING EXAM: MAMMO SCREENING CLINICAL HISTORY: SCREENING FOR BREAST CANCER Z12.39 TECHNIQUE: Bilateral full field digital CC and MLO mammographic images were obtained with 3D tomosyn thesis and utilizing computer aided detection (CAD). COMPARISON: Available for comparison. FINDINGS: Masses/Architectural Distortion: None seen. Microcalcifications: No suspicious pleomorphic-type are seen. Skin Thickening/Nipple Retraction: None. IMPRESSION: 1. No significant interval change with no specific features of malignancy noted. 2. Unless there is more urgent need, screening mammography is recommended, as per [employer] guidelines. BI-RADS Category 1 - Negative Breast Density - Category B - Scattered areas of fibroglandular density Breast density category C or D implies that the patient has dense breast tissue. Dense breast tissue is very common and is not abnormal but dense breast tissue can make it harder to find cancer on a ma mmogram. Also, dense breast tissue may increase their breast cancer risk. This information about the result of the mammogram report was provided to the patient to raise their awareness. Use this report when you speak with the patient about their risks for breast cancer, which includes their family hist ory. At that time, you may recommend for more screening tests (Ultrasound or MRI) as they might be us eful based on their risk. A negative radiographic report should not delay biopsy if a dominant or clinically suspicious mass is present. Up to ten percent of cancers are not identified on mammography. A negative report may reinforce clinical impression. Adenosis and dense breasts may obscure an underlying neoplasm. False positive reports average 6 to 10%. Patient will receive a letter notifying them of these results.
== END 2023-04-13 02:05 ==
LOC: DI 01:45
PROVIDERS: PCP Nurse Practitioner Family; Visit Provider Nurse Practitioner Family
DX: Z12.31 Encounter for screening mammogram for malignant neoplasm of breast (principal)
CPT/HCPCS: 77063; 77067

== ENCOUNTER 2023-04-24 03:13 | Outpatient (CLI) | payer MEDICARE, MEDICAID, SELFPAY | END 2023-04-24 03:14 | disposition home or self-care (01) | LOC: RT 03:13 | PROVIDERS: PCP Nurse Practitioner Family; Visit Provider Physician Assistant Surgical | DX: F17.210 Nicotine dependence, cigarettes, uncomplicated (principal); J96.11 Chronic respiratory failure with hypoxia | CPT/HCPCS: 94762 ==

== ENCOUNTER 2023-05-13 10:53 | Inpatient (IN) | payer MEDICARE, MEDICAID, SELFPAY ==
[2023-05-13] VITALS (37 sets, daily range): BP systolic 119–158; BP diastolic 57–78; PULSE 58–83; RESP 7–39; TEMP 36.6–37; O2SAT 96–99
--- NOTE | 2023-05-13 10:45 | RT.EKG_ITS ---
APPROVED REPORT Exam: Resting ECG Reason for Exam: passing out Patient Location: E HR:66 bpm ECG Measurements Heart Rate 66 AXIS DC 162 P 73 QRSd 95 QRS -8 QT 397 T 44 QTc 415 Conclusion Sinus rhythm...normal P axis, V-rate 60- 99 Inferior infarct, old...Q >35mS, II III aVF Abnrm T, consider ischemia, anterolateral lds...T <-0.20mV, I aVL V2-V6 Artifact lateral. Will repeat.
--- NOTE | 2023-05-13 11:15 | RT.EKG_ITS ---
APPROVED REPORT Exam: Resting ECG Reason for Exam: weaknesss Patient Location: E HR:60 bpm ECG Measurements Heart Rate 60 AXIS MN 150 P 79 QRSd 96 QRS -9 QT 414 T 30 QTc 415 Conclusion Sinus rhythm...normal P axis, V-rate 60- 99
[2023-05-13 11:33] LABS: BE (Venous) 3 mmol/L (-2-3); HCO3 (Venous) 28 mmol/L (23-28); O2 Sat (Venous) 62 %; TCO2 (Venous) 26 mmol/L (24-29); pCO2 (Venous) 47 mmHg (41-51); pH (Venous) 7.39 (7.31-7.41); pO2 (Venous) 32 mmHg
[2023-05-13 11:36] LABS: Abs Immature Grans 0.04 10^3/uL (0.0-0.06); Absolute Basophil Count 0.06 10^3/uL (0.0-0.2); Absolute Eosinophil Count 0.14 10^3/uL (0.0-0.7); Absolute Lymphocyte Count 2.64 10^3/uL (1.2-3.4); Absolute Monocyte Count 0.42 10^3/uL (0.1-0.8); Absolute Neutrophil Count 6.32 10^3/uL (1.2-6.7); Basophils % 0.6; Eosinophils % 1.5; HCT 39.8 % (36.0-46.0); Immature Grans % 0.4; Lymphocytes % 27.4; MCHC 32.7 % (32.0-36.0); MCV 86 fL (80-95); MPV 9.2 fL (8.0-11.0); Monocytes % 4.4; Neutrophils % 65.7; Platelet Count 245 10^3/uL (130-400); RBC 4.64 10^6/uL (3.93-5.22); RDW 14.3 % (11.7-14.6); RDW-SD 44.4 fL; WBC 9.62 10^3/uL (4.4-10.8)
[2023-05-13] MEDS: LORazepam 0.5 MG TAB PO (11:42)
[2023-05-13] MEDS: Normal Saline 250 ML IV (11:45)
[2023-05-13 12:01] LABS: ALT 17 U/L (14-59); AST 13 U/L (15-37); Albumin 3.6 g/dL (3.4-5.0); Alkaline Phosphatase 81 U/L (46-116); Anion Gap 9.8 mmol/L (3-11); BUN 20 mg/dL (7-18); Bilirubin, Total 0.4 mg/dL (0.2-1.0); CO2 27.2 mmol/L (21.0-32.0); CREATININE 0.9 mg/dL (0.55-1.02); Calcium 9.3 mg/dL (8.5-10.1); Chloride 99 mmol/L (98-107); Estimated GFR 70.07 (mL/min/1.73m2); Glucose 233 mg/dL (74-106); Lipase 16 U/L (16-77); Magnesium 1.7 mg/dL (1.8-2.4); Potassium 4.1 mmol/L (3.5-5.1); Sodium 136 mmol/L (136-145); Total Protein 7.7 g/dL (6.4-8.2); Troponin I < 50 ng/L (<or=60)
[2023-05-13 12:28] LABS: FREE T4 0.95 ng/dL (0.76-1.46)
--- NOTE | 2023-05-13 12:30 | DI.MRI_ITS ---
Exam(s) MR BRAIN WO EXAM: MR BRAIN WO CLINICAL HISTORY: dizziness, ramirez, hx of cva TECHNIQUE: Multiplanar multisequence MRI of the brain was performed. COMPARISON: MR MR ANGIO BRAIN WO from 05/13/2023 FINDINGS: VENTRICLES AND EXTRA AXIAL SPACES: Normal in size and morphology for the patient's age. MIDLINE SHIFT: None. CEREBRAL PARENCHYMA: Moderate atrophy. No focus of restricted diffusion to suggest acute infarct. O ld infarcts in the bilateral occipital lobes. No space-occupying lesion identified. HEMORRHAGE: None. BRAINSTEM/CEREBELLUM: Areas of restricted diffusion seen in inferior right cerebellar hemisphere cons istent with acute infarct. VISUALIZED PARANASAL SINUSES/MASTOIDS:Mild ethmoid sinus mucosal thickening. Minimal fluid in the ri ght mastoid. Vasculature: Normal flow void. PITUITARY GLAND: Unremarkable. ORBITS: Unremarkable. IMPRESSION: Acute infarct right cerebellum. 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 DATA REPOSITORY:
--- NOTE | 2023-05-13 12:30 | DI.MRI_ITS ---
Exam(s) MR ANGIO NECK WO EXAM: MR ANGIO NECK WO CLINICAL HISTORY: dizziness, fall, hx of cva. TECHNIQUE: 2D and 3D [id number] MRA of the Neck was performed. COMPARISON: CT CT CHEST LOW DOSE CA SCREENING from 12/28/[address] CHEST LOW DOSE CA SCREENING from 02/24/2022 MR MR ANGIO BRAIN WO from 05/13/2023 None FINDINGS: Exam is limited by motion. Common Carotid: Right: Motion at the common carotid bulb. Stenosis difficult to evaluate. Left: No dissection, occlusion or significant stenosis. External Carotid: Right: Not well seen proximally. No evidence of occlusion or significant stenosis. Left: No evidence of occlusion or significant stenosis. Internal Carotid: Right: No dissection, occlusion or significant stenosis. Left: No dissection, occlusion or significant stenosis. Vertebral Artery: Right: Right vertebral artery not visualized, either congenitally diminutive or absent versus occlude d. Left: No dissection, occlusion or significant stenosis. IMPRESSION: Nonvisualization of the right vertebral artery. Motion at the right common carotid bulb and proximal internal carotid artery by difficult to evaluate for stenosis. DATA REPOSITORY:
--- NOTE | 2023-05-13 12:30 | DI.MRI_ITS ---
Exam(s) MR ANGIO BRAIN WO CLINICAL HISTORY: dizziness, fall, hx of cva. TECHNIQUE: 3D [id number] study was performed without contrast. COMPARISON: None. FINDINGS: Carotid Arteries: Petrous: Normal. Cavernous: Normal. Cerebral: Normal. Middle Cerebral Arteries: Right: No aneurysm or significant stenosis. Left: No aneurysm or significant stenosis. Anterior Cerebral Arteries: Right: No aneurysm or significant stenosis. Left: No aneurysm or significant stenosis. Posterior cerebral arteries: Right: No aneurysm or significant stenosis Left: No aneurysm or significant stenosis Vertebral Arteries: Right: Distal most portion of the right vertebral artery is visualized which is diminutive in caliber . Left: No aneurysm or significant stenosis. No dissection.. Basilar Artery: No aneurysm or significant stenosis. Small Vessels: No evidence of beading. IMPRESSION: Diminutive distal right vertebral artery, otherwise normal MRA examination of the [place]. DATA REPOSITORY:
[2023-05-13 12:52] LABS: Bilirubin Negative (Negative); Blood Negative (Negative); Clarity Clear (Clear); Glucose Negative (Negative); Ketones Negative (Negative); Leukocyte Esterase Negative (Negative); Nitrite Negative (Negative); Urobilinogen 0.2 mg/dL (Up to 0.2)
--- NOTE | 2023-05-13 14:00 | DI.RAD_ITS ---
Exam(s) XR CHEST 2V PA LATERAL EXAM: XR CHEST 2V PA LATERAL CLINICAL HISTORY: dizziness, weak TECHNIQUE: 2D digital imaging was performed. COMPARISON: CR XR PORTABLE CHEST AP from 03/09/2023 FINDINGS: HEART: Normal size. Aorta: Not dilated. PULMONARY VASCULATURE: Normal. LUNGS: Suboptimal inflation on the lateral view. Chronic fibrotic changes. No infiltrate visible. No evidence of pulmonary edema. PLEURAL SPACE: No pleural effusion or pneumothorax. BONE:Severe degenerative changes of the right shoulder. Degenerative changes of the thoracic spine. IMPRESSION: No acute abnormality. DATA REPOSITORY: RADIATION DOSE DELIVERED:
[2023-05-13] MEDS: Atorvastatin 40 MG TAB 80 MG PO (14:31)
[2023-05-13] MEDS: Aspirin 325 MG TAB PO (14:31)
[2023-05-13] MEDS: Clopidogrel 75 MG TAB PO (14:31)
[2023-05-13 14:39] LABS: Troponin I < 50 ng/L (<or=60)
[2023-05-13] MEDS: Magnesium Gluconate 500 MG TAB PO (14:56)
--- NOTE | 2023-05-13 14:57 | W.ED.GENAD ---
Discharge Plan Disposition Patient Disposition: Admit to [facility] Condition: Stable Discharge Details Clinical Impression: Cerebellar infarct Admit Date/Time: 05/14/23 11:00 Admit Provider: Stanley Li Attending Provider: Stanley Li Primary Care Provider: Jazmin Garcias ED Provider: Ana Paula Mackenzie Discharge Data Discharge Date/Time-TO BE ENTERED AT DEPARTURE: 05/13/23 16:28 Medical Decision Making <ARAM Edward - Last Filed: 05/13/23 15:57> 68-year-old female with complex medical history including that of previous bilateral occipital stroke, recent ST elevation [place] with stent in December followed by dizziness and presyncope yesterday morning and intermittently throughout the day presents with vague complaints Given age, comorbidities, and exam findings, diagnostic labs, telemetry monitoring, EKG, and MRI/MRA were ordered for further evaluation Diagnostic labs displayed magnesium of 1.7, given supplemental magnesium MRI shows evidence of acute right cerebellar infarct, patient did not take her Plavix, atorvastatin, or aspirin today, given 325 of aspirin, 80 of atorvastatin and 75 of Plavix after swallow study performed patient appears to be swallowing without difficulty Vitals have remained stable including blood pressure MRI Case was discussed with Dr. Euceda, radiologist Troponin negative, no active chest pain throughout the entirety of this exam, low suspicion for pulmonary embolism clinically oxygenation 100%, no tachypnea, or tachycardia present, no prior history of DVT or PE Of note, patient did have CVA at [facility], unfortunate unable to access his records, she likely had stroke work-up at this time in September I had a long discussion with patient and her son who she wishes to be her [employer], Yoseph and patient wishes to be full CODE STATUS at time of my assessment Neurological exam has not changed at this encounter and she has been monitored on telemetry without obvious dysrhythmia noted Case discussed with Dr. Li, hospitalist to admit patient to his service Medical Records Medical records reviewed: Yes I reviewed the patient's medical records. Lab Data Lab results reviewed: Yes I reviewed the patient's lab results. ECG Data Prior ECG tracings: available for review <Gurwinder Bradley MD - Last Filed: 05/21/23 21:31> Date: 05/13/23 Time: 15:15 Note: Patient seen, examined, and discussed with ARAM Mackenzie. I agree with treatment plan as discussed/documented. HPI <ARAM Edward - Last Filed: 05/13/23 15:57> General Date/Time Provider Initiated Documentation: 05/13/23 10:54. HPI Narrative: This 68-year-old female presents with dizziness that started yesterday. She states that when she stood up from bed she was so dizzy that she could not stand, her last known was well was the night before. She states that she fell over, denies loss of consciousness. Denies any palpitations or shortness of breath. Has had intermittent chest discomfort but states that this is been going on since her stent was placed and denies any acute exacerbation, specifically no chest pain at this time. States she has been feeling persistently dizzy since the event occurred. She is unable to differentiate whether she is moving in the room where the room is spinning around her. She does not endorse any syncopal events, does report presyncopal event. Denies prior history of syncope. Does have a history of a CVA in September at [facility] of her she was transferred to [facility]. She had a stent placed in December at [facility] as well. She does report continuing to take her Plavix, aspirin, and atorvastatin. She denies any calf pain or swelling. She Related Data Home Medications Medication Instructions Recorded Confirmed nitroglycerin 0.4 mg sublingual 0.4 mg sublingual Q5M PRN 05/27/21 05/13/23 tablet pen needle, diabetic 32 gauge x #50 ea 05/27/21 05/13/23 (BD Ultra-Fine Lexus Pen Needle) atorvastatin 20 mg tablet 80 mg PO DAILY 09/06/21 05/13/23 insulin glargine 100 unit/mL (3 See Rx Instructions subcut 02/17/22 05/13/23 mL) subcutaneous pen (Basaglar DIRECTED KwikPen U-100 Insulin) omeprazole 20 mg capsule,delayed 20 mg PO DAILY 06/11/22 03/25/23 release Oxygen #1 ea 10/10/22 05/13/23 albuterol sulfate 0.63 mg/3 mL 0.63 mg (3 mL) inhalation QID PRN 10/13/22 05/13/23 solution for nebulization shortness of breath or wheezing #90 mL ipratropium bromide 0.02 % 2.5 ml inhalation Q4H PRN 10/13/22 03/25/23 solution for inhalation nebulizer #75 mL budesonide-formoterol HFA 160 2 puff inhalation BID #10.2 grams 10/20/22 05/13/23 mcg-4.5 mcg/actuation aerosol inhaler (Symbicort) tiotropium bromide 2.5 2 inh inhalation QAM #4 grams 10/20/22 03/25/23 mcg/actuation mist for inhalation (Spiriva Respimat) roflumilast 500 mcg tablet 500 mcg PO DAILY #90 tabs 03/03/23 05/13/23 aspirin 81 mg tablet,delayed 81 mg PO DAILY 03/09/23 05/13/23 release calcium carbonate 550 mg chewable 1,000 mg PO TID 03/09/23 03/25/23 tablet docusate sodium 100 mg capsule 100 mg PO DAILY 03/09/23 05/13/23 duloxetine 30 mg capsule,delayed 30 mg PO DAILY 03/09/23 05/13/23 release furosemide 20 mg tablet (Lasix) 20 mg PO DAILY #14 tabs 03/09/23 05/13/23 levothyroxine 100 mcg tablet 100 mcg PO DAILY 03/09/23 05/13/23 sertraline 25 mg tablet 50 mg PO DAILY 03/09/23 03/25/23 spironolactone 50 mg tablet 50 mg PO DAILY #14 tabs 03/09/23 05/13/23 magnesium oxide 400 mg (241.3 mg 400 mg PO DAILY 03/25/23 05/13/23 magnesium) tablet lorazepam 1 mg tablet 1 mg PO TID PRN anxiety #90 tabs 05/04/23 05/13/23 albuterol sulfate 90 mcg/actuation 2 puff inhalation QID PRN 05/13/23 05/13/23 aerosol inhaler (Ventolin HFA) magnesium oxide 400 mg (241.3 mg 400 mg PO DAILY 05/13/23 05/13/23 magnesium) tablet carvedilol 6.25 mg tablet 6.25 mg PO BID #60 tabs 05/15/23 ondansetron 4 mg disintegrating 4 mg PO Q8H PRN PRN nausea and 05/15/23 tablet vomiting #30 tabs ticagrelor 90 mg tablet (Brilinta) 90 mg PO BID #60 tabs 05/15/23 scopolamine base 1 mg over 3 days 1 patch transdermal Q3D #4 ea 05/16/23 transdermal patch (Transderm-Scop) Previous Rx's Medication Instructions Recorded Oxygen #1 ea 10/10/22 albuterol sulfate 0.63 mg/3 mL 0.63 mg (3 mL) inhalation QID PRN 10/13/22 solution for nebulization shortness of breath or wheezing #90 mL ipratropium bromide 0.02 % 2.5 ml inhalation Q4H PRN 10/13/22 solution for inhalation nebulizer #75 mL budesonide-formoterol HFA 160 2 puff inhalation BID #10.2 grams 10/20/22 mcg-4.5 mcg/actuation aerosol inhaler (Symbicort) tiotropium bromide 2.5 2 inh inhalation QAM #4 grams 10/20/22 mcg/actuation mist for inhalation (Spiriva Respimat) roflumilast 500 mcg tablet 500 mcg PO DAILY #90 tabs 03/03/23 furosemide 20 mg tablet (Lasix) 20 mg PO DAILY #14 tabs 03/09/23 spironolactone 50 mg tablet 50 mg PO DAILY #14 tabs 03/09/23 lorazepam 1 mg tablet 1 mg PO TID PRN anxiety #90 tabs 05/04/23 carvedilol 6.25 mg tablet 6.25 mg PO BID #60 tabs 05/15/23 ondansetron 4 mg disintegrating 4 mg PO Q8H PRN PRN nausea and 05/15/23 tablet vomiting #30 tabs ticagrelor 90 mg tablet (Brilinta) 90 mg PO BID #60 tabs 05/15/23 scopolamine base 1 mg over 3 days 1 patch transdermal Q3D #4 ea 05/16/23 transdermal patch (Transderm-Scop) Allergies Allergy/AdvReac Type Severity Reaction Status Date / Time cephalexin monohydrate Allergy Severe Tongue Unverified 05/13/23 11:08 [From Keflex] swelling, difficult to breath Macrolide Antibiotics Allergy Severe facial Verified 05/13/23 11:07 swelling Penicillins Allergy Severe Swelling, Unverified 05/13/23 11:07 throat closes up azithromycin Allergy Intermediate GI upset, Unverified 05/13/23 11:07 itching codeine Allergy Intermediate Skin Rash, Unverified 05/13/23 11:07 itching Latex, Natural Rubber AdvReac Severe Blister Unverified 05/13/23 11:07 General Stated Complaint: Dizzy/Sync POLI: 3 PFSH <ARAM Edward - Last Filed: 05/13/23 15:57> All Active Problems (Updated 05/17/23 @ 00:04 by SHAWNEE TITUS) Occlusion of right vertebral artery (Acute) Carotid stenosis, right (Acute) DM type 2 (diabetes mellitus, type 2) (Acute) Cerebellar infarct (Acute) Chronic hypoxemic respiratory failure (Chronic) Hypersomnia with sleep apnea (Chronic) Chronic tracheobronchitis (Chronic) Chronic ischemic heart disease (Chronic) Obstructive sleep apnea syndrome in adult (Acute) Medical History Abdominal pain Acute allergic mucoid otitis media Allergic asthma Anxiety ASCVD (arteriosclerotic cardiovascular disease) Back pain Chest pain Chronic bronchitis with emphysema Chronic kidney disease Constipation COPD (chronic obstructive pulmonary disease) COPD exacerbation Depression Disorder of hyperalimentation Disorder of trunk Diverticulitis of colon Dyspnea GERD (gastroesophageal reflux disease) GERD (gastroesophageal reflux disease) History of COVID-19 02/16/2021 Hyperlipidemia Hypersomnia Hypertension Hypothyroidism Idiopathic osteoarthritis Joint pain Morbid obesity Nicotine dependence, cigarettes, uncomplicated Non-compliance with treatment Pain in right knee Personal history of colonic polyps Right lower quadrant pain Snoring Spondylosis of lumbar region without myelopathy or radiculopathy Synovial cyst of popliteal space Tobacco abuse Tracheobronchitis Tubular adenoma of colon Urinary incontinence, mixed Vocal cord dysfunction following prolonged intubation 12/2022 Surgical History Appendectomy 1981 section x2 Cholecystectomy 04/23/2012 Colonoscopy - MAC (06/13/16) EGD - MAC (06/13/16) History of hemorrhoidectomy 1999 History of tubal ligation 1981 Trache[place] status for [place] [facility] [place], [place] 01/2023 Family History Mother Hypertension COPD (chronic obstructive pulmonary disease) Renal failure syndrome Father Hypertension COPD (chronic obstructive pulmonary disease) Coronary artery disease Social History Smoking/Tobacco Use Status: Former Tobacco Use Quit Date: 12/10/22 Tobacco: How many years used: 50 Smoking risk assessment performed?: Yes Alcohol Intake: never Drug use: Daily Substance use type: does not use Housing: house Communication Needs: Corrective Lenses Pets and animals: Yes (2 dogs, 1 cat) Do you feel safe at home: Yes Do you feel safe in your relationship?: Yes Exam <ARAM Edward Last Filed: 05/13/23 15:57> Const General: cooperative and in distress Orientation: alert and oriented x3 HENMT Head: normal to inspection Eyes Pupils: PERRL EOM: EOM intact bilaterally and No nystagmus Neck Neck: normal visual inspection Other: no carotid bruit Resp Effort & Inspection: normal respiratory effort Auscultation: clear to auscultation bilaterally Cardio Rate: regular rate Rhythm: regular rhythm Skin General skin exam: no rashes or lesions noted Neuro General: patient alert and patient oriented x3 Cranial Nerves: CN's II-XI intact bilaterally, tongue midline and no nystagmus Cognition: normal cognition Speech: speech normal Gait: ataxic Motor: no pronator drift and strength normal Sensory Exam: no sensory deficits noted Coordination: [id number] test normal and [id number] test normal Course <ARAM Edward Last Filed: 05/13/23 15:57> Vital Signs Vital signs: Vital Signs Temperature 36.9 C 05/13/23 10:59 Pulse 64 05/13/23 10:59 Respiratory Rate 18 05/13/23 10:59 Blood Pressure 158/64 H 05/13/23 10:59 Pulse Oximetry 99 05/13/23 10:59 Temperature 36.9 C 05/13/23 10:59 Temperature Source Oral 05/13/23 10:59 Pulse 64 05/13/23 10:59 Pulse 64 05/13/23 11:50 Respiratory Rate 19 05/13/23 11:50 Respiratory Effort Normal 05/13/23 14:21 Respiratory Depth Normal 05/13/23 14:21 Respiratory Pattern Normal 05/13/23 14:21 Blood Pressure 158/64 H 05/13/23 10:59 Blood Pressure Position Sitting 05/13/23 10:59 Pulse Oximetry 99 05/13/23 10:59 Oxygen Delivery Method Room Air 05/13/23 10:59 Oxygen Flow Rate 0 05/13/23 10:59 Lab/Test Results Lab/Test Results: Laboratory Tests Range/Units 05/13/23 05/13/23 05/13/23 11:30 11:30 11:30 WBC (4.4-10.8) 10^3/uL 9.62 RBC (3.93-5.22) 10^6/uL 4.64 Hgb (11.2-15.7) g/dL 13.0 Hct (36.0-46.0) % 39.8 MCV (80-95) fL 86 MCH (27.0-33.0) pg 28.0 MCHC (32.0-36.0) % 32.7 RDW (11.7-14.6) % 14.3 Plt Count (130-400) 10^3/uL 245 MPV (8.0-11.0) fL 9.2 Immature Gran % 0.4 Neutrophils % 65.7 Lymphocytes % 27.4 Monocytes % 4.4 Eosinophils % 1.5 Basophils % 0.6 Nucleated RBC % (0.0-0.3) % 0.0 Absolute Neutrophils (1.2-6.7) 10^3/uL 6.32 Absolute Lymphocytes (1.2-3.4) 10^3/uL 2.64 Absolute Monocytes (0.1-0.8) 10^3/uL 0.42 Absolute Eosinophils (0.0-0.7) 10^3/uL 0.14 Absolute Basophils (0.0-0.2) 10^3/uL 0.06 VBG pH (7.31-7.41) 7.39 VBG pCO2 (41-51) mmHg 47 VBG pO2 mmHg 32 VBG HCO3 (23-28) mmol/L 28 VBG Total CO2 (24-29) mmol/L 26 VBG O2 Saturation % 62 VBG Base Excess (-2-3) mmol/L 3 Sodium (136-145) mmol/L 136 Potassium (3.5-5.1) mmol/L 4.1 Chloride (98-107) mmol/L 99 Carbon Dioxide (21.0-32.0) mmol/L 27.2 Anion Gap (3-11) mmol/L 9.8 BUN (7-18) mg/dL 20 H Creatinine (0.55-1.02) mg/dL 0.9 Est GFR (CKD-EPI 2020) (mL/min/1.73m2) 70.07 Glucose (74-106) mg/dL 233 H Calcium (8.5-10.1) mg/dL 9.3 Magnesium (1.8-2.4) mg/dL 1.7 L Total Bilirubin (0.2-1.0) mg/dL 0.4 AST (15-37) U/L 13 L ALT (14-59) U/L 17 Alkaline Phosphatase (46-116) U/L 81 Troponin I (<or=60) ng/L < 50 Total Protein (6.4-8.2) g/dL 7.7 Albumin (3.4-5.0) g/dL 3.6 Lipase (16-77) U/L 16 TSH (0.36-3.74) uIU/mL 3.90 H Free T4 (0.76-1.46) ng/dL 0.95 Urine Color (Yellow) Urine Clarity (Clear) Urine pH (5-8) Ur Specific [place] (1.005-1.025) Urine Protein (Negative) mg/dL Urine Ketones (Negative) mg/dL Urine Blood (Negative) Urine Nitrite (Negative) Urine Bilirubin (Negative) Urine Urobilinogen (Up to 0.2) mg/dL Ur Leukocyte Esterase (Negative) Urine Glucose (Negative) mg/dL Range/Units 05/13/23 05/13/23 12:47 14:12 WBC (4.4-10.8) 10^3/uL RBC (3.93-5.22) 10^6/uL Hgb (11.2-15.7) g/dL Hct (36.0-46.0) % MCV (80-95) fL MCH (27.0-33.0) pg MCHC (32.0-36.0) % RDW (11.7-14.6) % Plt Count (130-400) 10^3/uL MPV (8.0-11.0) fL Immature Gran % Neutrophils % Lymphocytes % Monocytes % Eosinophils % Basophils % Nucleated RBC % (0.0-0.3) % Absolute Neutrophils (1.2-6.7) 10^3/uL Absolute Lymphocytes (1.2-3.4) 10^3/uL Absolute Monocytes (0.1-0.8) 10^3/uL Absolute Eosinophils (0.0-0.7) 10^3/uL Absolute Basophils (0.0-0.2) 10^3/uL VBG pH (7.31-7.41) VBG pCO2 (41-51) mmHg VBG pO2 mmHg VBG HCO3 (23-28) mmol/L VBG Total CO2 (24-29) mmol/L VBG O2 Saturation % VBG Base Excess (-2-3) mmol/L Sodium (136-145) mmol/L Potassium (3.5-5.1) mmol/L Chloride (98-107) mmol/L Carbon Dioxide (21.0-32.0) mmol/L Anion Gap (3-11) mmol/L BUN (7-18) mg/dL Creatinine (0.55-1.02) mg/dL Est GFR (CKD-EPI 2020) (mL/min/1.73m2) Glucose (74-106) mg/dL Calcium (8.5-10.1) mg/dL Magnesium (1.8-2.4) mg/dL Total Bilirubin (0.2-1.0) mg/dL AST (15-37) U/L ALT (14-59) U/L Alkaline Phosphatase (46-116) U/L Troponin I (<or=60) ng/L < 50 Total Protein (6.4-8.2) g/dL Albumin (3.4-5.0) g/dL Lipase (16-77) U/L TSH (0.36-3.74) uIU/mL Free T4 (0.76-1.46) ng/dL Urine Color (Yellow) Yellow Urine Clarity (Clear) Clear Urine pH (5-8) 5.0 Ur Specific [place] (1.005-1.025) 1.010 Urine Protein (Negative) mg/dL Negative Urine Ketones (Negative) mg/dL Negative Urine Blood (Negative) Negative Urine Nitrite (Negative) Negative Urine Bilirubin (Negative) Negative Urine Urobilinogen (Up to 0.2) mg/dL 0.2 Ur Leukocyte Esterase (Negative) Negative Urine Glucose (Negative) mg/dL Negative
--- NOTE | 2023-05-13 17:41 | HPE_ITS ---
Date of service: 05/13/23 Time of Service: 17:42 Assessment and Plan Assessment and plan (1) Cerebellar infarct: Status: Acute Assessment and plan: Primarily presenting with dizziness and GI symptoms. New cerebellar infarct by MRI. We will continue antiplatelet therapy and high-dose statin therapy. Check lipid panel and hemoglobin A1c. Physical therapy and Occupational Therapy. We will ask Dr. Smith to see her from neurology. (2) DM type 2 (diabetes mellitus, type 2): Status: Acute Assessment and plan: Poorly controlled diabetes. We will continue her basal insulin and sliding scale insulin. Diabetic diet. (3) Chronic hypoxemic respiratory failure: Status: Chronic Assessment and plan: Patient had respiratory failure and required prolonged intubation in December 2022. She had an AL during that time with stent placement. She had a tracheostomy during that time which was discontinued in January 2023. She has known hypercapnia and obstructive sleep apnea. Continue home CPAP if available. (4) Epigastric pain: Status: Acute Assessment and plan: She is complaining of diffuse epigastric pain. The abdominal exam is quite unremarkable. This may be nausea and vomiting from her cerebellar infarct. I wrote for Zofran as needed. (5) Hypersomnia with sleep apnea: Status: Acute Assessment and plan: Home CPAP if available. (6) Chronic tracheobronchitis: Status: Acute Assessment and plan: No real evidence of bronchospasm or infection. Stable from a respiratory point of view. (7) Chronic ischemic heart disease: Status: Chronic Assessment and plan: Status post recent NSTEMI. Status post PCI and stent. She is not presenting with any evidence of failure or chest pain. (8) Obstructive sleep apnea syndrome in adult: Status: Acute Assessment and plan: Home CPAP if available. History of Present Illness History of Present Illness Chief Complaint: Cerebellar CVA, dizziness Narrative: 68-year-old woman with a history of coronary disease and prior stroke developed dizziness and imbalance on 05/12/2023. She describes getting up that morning and feeling dizzy and fell backward on the bed. Her son checked on her and she said she felt dizzy but she was well enough to go to the [employer]. By the end of [place] she was again dizzy as they went back to the car. Today (05/13/2023) she woke up feeling dizzy and sick to her stomach and complained of a headache. Her son immediately drove her to [facility] for evaluation. In the emergency room she was reportedly quite dizzy. She had an MRI of the head that showed a right rr infarct and old bilateral occipital infarcts. An MR a showed diminished right vertebral artery, chest x-ray negative, neck MRA showed motion artifact but could not see the right vertebral artery. She was given aspirin 325 mg, Plavix 75 mg, atorvastatin 80 mg. She is admitted to [facility] on telemetry. Review of Systems Narrative: Patient has not chronic weight problem. She describes chronic abdominal discomfort all over. She has had numerous breathing problems and sees Dr. Bledsoe from pulmonology. The dizziness is relatively new for her starting on or around 05/12/2023. She has not had any associated chest pain or shortness of breath in the last few months. She has had a CVA in the past while at [facility] in 09/2022. She currently has nausea but no vomiting. She states she has hunger but does not desire to eat. She has an anxiety disorder and feels very anxious. [facility] All Active Problems (Updated 05/13/23 @ 17:54 by Stanley Li MD) DM type 2 (diabetes mellitus, type 2) (Acute) Cerebellar infarct (Acute) Chronic hypoxemic respiratory failure (Chronic) Epigastric pain (Acute) Hypersomnia with sleep apnea (Acute) Chronic tracheobronchitis (Acute) Chronic ischemic heart disease (Chronic) Obstructive sleep apnea syndrome in adult (Acute) Medical History (Updated 05/13/23 @ 17:54 by Stanley Li MD) Abdominal pain Acute allergic mucoid otitis media Allergic asthma Anxiety ASCVD (arteriosclerotic cardiovascular disease) Back pain Chest pain Chronic bronchitis with emphysema Chronic kidney disease Constipation COPD (chronic obstructive pulmonary disease) COPD exacerbation Depression Disorder of hyperalimentation Disorder of trunk Diverticulitis of colon Dyspnea GERD (gastroesophageal reflux disease) GERD (gastroesophageal reflux disease) History of COVID-19 02/16/2021 Hyperlipidemia Hypersomnia Hypertension Hypothyroidism Idiopathic osteoarthritis Joint pain Morbid obesity Nicotine dependence, cigarettes, uncomplicated Non-compliance with treatment Pain in right knee Personal history of colonic polyps Right lower quadrant pain Snoring Spondylosis of lumbar region without myelopathy or radiculopathy Synovial cyst of popliteal space Tobacco abuse Tracheobronchitis Tubular adenoma of colon Urinary incontinence, mixed Vocal cord dysfunction following prolonged intubation 12/2022 Surgical History (Updated 05/13/23 @ 17:53 by Stanley Li MD) Appendectomy 1980 section x2 Cholecystectomy 04/23/2012 Colonoscopy - MAC (06/13/16) EGD - MAC (06/13/16) History of hemorrhoidectomy 1999 History of tubal ligation 1980 Tracheostomy status for prolonged intubation at [facility] 01/2023, removed 01/2023 Family History Mother Hypertension COPD (chronic obstructive pulmonary disease) Renal failure syndrome Father Hypertension COPD (chronic obstructive pulmonary disease) Coronary artery disease Social History Smoking/Tobacco Use Status: Former Tobacco Use Quit Date: 12/10/22 Tobacco: How many years used: 50 Smoking risk assessment performed?: Yes Alcohol Intake: never Drug use: Daily Substance use type: does not use Housing: house Communication Needs: Corrective Lenses Pets and animals: Yes (2 dogs, 1 cat) Do you feel safe at home: Yes Do you feel safe in your relationship?: Yes Meds Allergies and Home Medications Allergies Allergy/AdvReac Type Severity Reaction Status Date / Time cephalexin monohydrate Allergy Severe Tongue Unverified 05/13/23 11:08 [From Keflex] swelling, difficult to breath Macrolide Antibiotics Allergy Severe facial Verified 05/13/23 11:07 swelling Penicillins Allergy Severe Swelling, Unverified 05/13/23 11:07 throat closes up azithromycin Allergy Intermediate GI upset, Unverified 05/13/23 11:07 itching codeine Allergy Intermediate Skin Rash, Unverified 05/13/23 11:07 itching Latex, Natural Rubber AdvReac Severe Blister Unverified 05/13/23 11:07 Home Medications Medication Instructions Recorded Confirmed Type nitroglycerin 0.4 mg sublingual 0.4 mg sublingual Q5M PRN 05/27/21 05/13/23 History tablet pen needle, diabetic 32 gauge x #50 ea 05/27/21 05/13/23 History (BD Ultra-Fine Lexus Pen Needle) atorvastatin 20 mg tablet 80 mg PO DAILY 09/06/21 05/13/23 History albuterol sulfate 2.5 mg/3 mL 2.5 mg (3 mL) continuous 02/17/22 05/13/23 Clinic (0.083 %) solution for nebulization nebulization ONCE COPD Exacerbation #3 mL insulin glargine 100 unit/mL (3 See Rx Instructions subcut 02/17/22 05/13/23 History mL) subcutaneous pen (Basaglar DIRECTED KwikPen U-100 Insulin) clopidogrel 75 mg tablet 75 mg PO DAILY 06/11/22 05/13/23 History omeprazole 20 mg capsule,delayed 20 mg PO DAILY 06/11/22 03/25/23 History release Oxygen #1 ea 10/10/22 05/13/23 Rx albuterol sulfate 0.63 mg/3 mL 0.63 mg (3 mL) inhalation QID PRN 10/13/22 05/13/23 Rx solution for nebulization shortness of breath or wheezing #90 mL ipratropium bromide 0.02 % 2.5 ml inhalation Q4H PRN 10/13/22 03/25/23 Rx solution for inhalation nebulizer #75 mL budesonide-formoterol HFA 160 2 puff inhalation BID #10.2 grams 10/20/22 05/13/23 Rx mcg-4.5 mcg/actuation aerosol inhaler (Symbicort) tiotropium bromide 2.5 2 inh inhalation QAM #4 grams 10/20/22 03/25/23 Rx mcg/actuation mist for inhalation (Spiriva Respimat) roflumilast 500 mcg tablet 500 mcg PO DAILY #90 tabs 03/03/23 05/13/23 Rx aspirin 81 mg tablet,delayed 81 mg PO DAILY 03/09/23 05/13/23 History release calcium carbonate 550 mg chewable 1,000 mg PO TID 03/09/23 03/25/23 History tablet carvedilol 6.25 mg tablet 12.5 mg PO BID 03/09/23 05/13/23 History docusate sodium 100 mg capsule 100 mg PO DAILY 03/09/23 05/13/23 History duloxetine 30 mg capsule,delayed 30 mg PO DAILY 03/09/23 05/13/23 History release furosemide 20 mg tablet (Lasix) 20 mg PO DAILY #14 tabs 03/09/23 05/13/23 Rx levothyroxine 100 mcg tablet 100 mcg PO DAILY 03/09/23 05/13/23 History sertraline 25 mg tablet 50 mg PO DAILY 03/09/23 03/25/23 History spironolactone 50 mg tablet 50 mg PO DAILY #14 tabs 03/09/23 05/13/23 Rx magnesium oxide 400 mg (241.3 mg 400 mg PO DAILY 03/25/23 05/13/23 History magnesium) tablet lorazepam 1 mg tablet 1 mg PO TID PRN anxiety #90 tabs 05/04/23 05/13/23 Rx albuterol sulfate 90 mcg/actuation 2 puff inhalation QID PRN 05/13/23 05/13/23 History aerosol inhaler (Ventolin HFA) magnesium oxide 400 mg (241.3 mg 400 mg PO DAILY 05/13/23 05/13/23 History magnesium) tablet Exam Narrative Exam Narrative: Obese patient that appears anxious but otherwise no apparent distress. She attends well and answers questions appropriately. Her speech is relatively clear and comprehension appears to be normal. She has no labored breathing or difficulty with breathing. She does not have restriction in motion of her upper or lower extremities. She has no deviation of her tongue or any facial motor weaknesses her pupils are small 2 mm but equal. Her extraocular eye movements appear to be normal. Her neck shows excess adipose tissue but good symmetry the tracheostomy scar is well-healed her lung sounds are generally clear on the right and left more than a few end expiratory wheezes. Her heart sounds are regular and there is no significant murmur her abdomen is quite massively obese and has a lot of adipose tissue. Despite her complaint of abdominal discomfort there is no pain elicited to palpation in all 4 quadrants. I did not palpate any organomegaly. The lower extremities appear to be well perfused. She has trace edema in both lower extremities. There are no open sores or wounds. Neurologically I did not test her gait. Her motor strength in the upper and lower extremities was 4/4. Results Imaging Imaging Studies: MRI of the brain shows a right cerebellum infarct and old bilateral occipital infarcts. MRA of the brain showed diminished right vertebral artery. MRA of the neck showed motion artifact and nonvisualization of the right vertebral artery. Chest x-ray showed no abnormality Labs 05/13/23 11:30 05/13/23 11:30 Labs: Laboratory Results - last 24 hr 05/13/23 05/13/23 05/13/23 11:30 11:30 11:30 WBC 9.62 RBC 4.64 Hgb 13.0 Hct 39.8 MCV 86 MCH 28.0 MCHC 32.7 RDW 14.3 Plt Count 245 MPV 9.2 Immature Gran % 0.4 Neutrophils % 65.7 Lymphocytes % 27.4 Monocytes % 4.4 Eosinophils % 1.5 Basophils % 0.6 Nucleated RBC % 0.0 Absolute Neutrophils 6.32 Absolute Lymphocytes 2.64 Absolute Monocytes 0.42 Absolute Eosinophils 0.14 Absolute Basophils 0.06 VBG pH 7.39 VBG pCO2 47 VBG pO2 32 VBG HCO3 28 VBG Total CO2 26 VBG O2 Saturation 62 VBG Base Excess 3 Sodium 136 Potassium 4.1 Chloride 99 Carbon Dioxide 27.2 Anion Gap 9.8 BUN 20 H Creatinine 0.9 Est GFR (CKD-EPI 2020) 70.07 Glucose 233 H Calcium 9.3 Magnesium 1.7 L Total Bilirubin 0.4 AST 13 L ALT 17 Alkaline Phosphatase 81 Troponin I < 50 Total Protein 7.7 Albumin 3.6 Lipase 16 TSH 3.90 H Free T4 0.95 Urine Color Urine Clarity Urine pH Ur Specific [place] Urine Protein Urine Ketones Urine Blood Urine Nitrite Urine Bilirubin Urine Urobilinogen Ur Leukocyte Esterase Urine Glucose 05/13/23 05/13/23 12:47 14:12 WBC RBC Hgb Hct MCV MCH MCHC RDW Plt Count MPV Immature Gran % Neutrophils % Lymphocytes % Monocytes % Eosinophils % Basophils % Nucleated RBC % Absolute Neutrophils Absolute Lymphocytes Absolute Monocytes Absolute Eosinophils Absolute Basophils VBG pH VBG pCO2 VBG pO2 VBG HCO3 VBG Total CO2 VBG O2 Saturation VBG Base Excess Sodium Potassium Chloride Carbon Dioxide Anion Gap BUN Creatinine Est GFR (CKD-EPI 2020) Glucose Calcium Magnesium Total Bilirubin AST ALT Alkaline Phosphatase Troponin I < 50 Total Protein Albumin Lipase TSH Free T4 Urine Color Yellow Urine Clarity Clear Urine pH 5.0 Ur Specific [place] 1.010 Urine Protein Negative Urine Ketones Negative Urine Blood Negative Urine Nitrite Negative Urine Bilirubin Negative Urine Urobilinogen 0.2 Ur Leukocyte Esterase Negative Urine Glucose Negative Last Vital Signs Temp 37.0 C 05/13/23 16:47 Pulse 71 05/13/23 16:47 Resp 18 05/13/23 16:47 BP 122/71 05/13/23 16:47 Pulse Ox 98 05/13/23 16:47 H&P: Quality Stroke Onset of Symptoms Date: 05/12/23 PAWSS Pt Consumed Any Amount of Alcohol Within the Last 30 days OR had positive BEN Upon Admission: No Time Spent Time spent with Patient: 55-74 minutes Time was spent: preparing to see the patient(eg.review tests), obtaining and/or reviewing separately otained hiistory, ordering medications,tests, procedures, referring, communicating with other health home health care provider, indepentently i nterpreting results and counseling the patient
[2023-05-13] MEDS: LORazepam 1 MG TAB PO (18:04)
--- NOTE | 2023-05-13 18:06 | RESPIRATORY ---
Rt spoke with patient concerning history of SARIAH in her chart, patient does not use a machine at home. Patient uses anywhere from 1.5L-3L of Oxygen at night for the SARIAH, DME is [facility].
[2023-05-13] MEDS: Budesonide/Formoterol 160/4.5 6 GM 60 PUFF INH IH (19:02)
[2023-05-13] MEDS: Acetaminophen 325 MG TAB PO (21:00)
[2023-05-13] MEDS: Carvedilol 6.25 MG TAB PO (21:01)
[2023-05-13] MEDS: Insulin Glargine 300 UNITS/3 ML PEN 18 UNITS SC (22:36)
[2023-05-14] VITALS (8 sets, daily range): BP systolic 121–135; BP diastolic 62–79; PULSE 70–83; RESP 18–20; TEMP 36.4–36.6; O2SAT 95–100
[2023-05-14] MEDS: Levothyroxine 100 MCG TAB PO (05:47)
[2023-05-14 07:07] LABS: Abs Immature Grans 0.03 10^3/uL (0.0-0.06); Absolute Basophil Count 0.06 10^3/uL (0.0-0.2); Absolute Eosinophil Count 0.15 10^3/uL (0.0-0.7); Absolute Lymphocyte Count 3.76 10^3/uL (1.2-3.4); Absolute Monocyte Count 0.44 10^3/uL (0.1-0.8); Absolute Neutrophil Count 3.26 10^3/uL (1.2-6.7); Basophils % 0.8; Eosinophils % 1.9; HGB 12.4 g/dL (11.2-15.7); Immature Grans % 0.4; Lymphocytes % 48.8; MCHC 32.6 % (32.0-36.0); MCV 86 fL (80-95); MPV 9.6 fL (8.0-11.0); Monocytes % 5.7; Neutrophils % 42.4; Platelet Count 253 10^3/uL (130-400); RBC 4.43 10^6/uL (3.93-5.22); RDW 14.3 % (11.7-14.6); RDW-SD 44.8 fL
[2023-05-14 07:49] LABS: Anion Gap 10.6 mmol/L (3-11); BUN 17 mg/dL (7-18); CO2 26.4 mmol/L (21.0-32.0); CREATININE 0.8 mg/dL (0.55-1.02); Calcium 9.6 mg/dL (8.5-10.1); Calculated LDL 44 mg/dL (<100); Chloride 102 mmol/L (98-107); Cholesterol 124 mg/dL (<200); Estimated GFR 80.71 (mL/min/1.73m2); Glucose 143 mg/dL (74-106); HDL Cholesterol 48 mg/dL (40-60); Potassium 3.7 mmol/L (3.5-5.1); Sodium 139 mmol/L (136-145); Triglyceride 161 mg/dL (<150)
[2023-05-14] MEDS: Budesonide/Formoterol 160/4.5 6 GM 60 PUFF INH IH ×2 (07:54→19:09)
[2023-05-14 07:57] LABS: Lab Add On Test DONE
[2023-05-14] MEDS: Atorvastatin 20 MG TAB 80 MG PO (08:01)
[2023-05-14] MEDS: Spironolactone 50 MG TAB PO (08:02)
[2023-05-14] MEDS: Docusate Sodium 100 MG CAP PO (08:02)
[2023-05-14] MEDS: Clopidogrel 75 MG TAB PO (08:02)
[2023-05-14] MEDS: Furosemide 20 MG TAB PO (08:02)
[2023-05-14] MEDS: Aspirin E.C. 81 MG TABEC PO (08:02)
[2023-05-14] MEDS: Carvedilol 6.25 MG TAB PO ×2 (08:02→19:09)
[2023-05-14] MEDS: Magnesium Oxide 400 MG TAB PO (08:02)
[2023-05-14] MEDS: DULoxetine 30 MG CAP PO (08:02)
[2023-05-14] MEDS: Roflumilast 500 MCG TAB PO (08:02)
[2023-05-14] MEDS: Insulin Aspart 300 UNITS/3 ML PEN SC ×3 (08:03→17:17)
[2023-05-14 08:06] LABS: Magnesium 1.9 mg/dL (1.8-2.4)
--- NOTE | 2023-05-14 08:19 | OT.INNT ---
Occupational Therapy Notes 05/14/23 OT consult received and pts chart was reviewed. OT went in to see pt who was lying in bed. OT went to assess pts current level of function and pt reports that she needs to hold at this time because she is not feeling well. OT went to discuss with nursing who reports that pt was totally fine a little while ago. OT went back in to touch base with pt who refused consult at this time. She states that she would be willing to consult later today or tomorrow. Aniya Bansal, OTR/L
--- NOTE | 2023-05-14 09:36 | PDOC.CMIN ---
Date of service: 05/14/23 Time of Service: 09:36 Care Management Initial Assmt Initial Assessment REASON FOR HOSPITALIZATION:: cerebellar infarct PREVIOUS FUNCTIONAL STATUS/SOCIAL/FAMILY SUPPORTS:: Negar lives in [place], [place] with her son Yoseph, [id number] Zoltan Munguia and 2 of her grandchildren. She also has a daughter Ana Paula in [place], [place] Negar has just been approved for [facility] terminal manager Medicaid. Her [id number] Zoltan Munguia, who already provides most of her care, will be her designated caregiver. Negar is alert and oriented but requires assistance with ADLs such as bathing and dressing. She uses walker for ambulatory assistance and also owns a cane. CURRENT FUNCTIONAL STATUS:: Negar was sitting up in be when CM met with her. She was pleasant in manner and agreeable to conversation. Negar shared a bit of her recent medical history with CM. She had a previous stroke, possibly last August, that left her with visual impairment. She was then was hospitalized for an extended period of [place] [facility] [place]. She stated that she had a heart attack and was flown [place] [facility] [place]. Negar stated that she feels very weak, nauseated and dizzy. She formerly had home health services for nursing and PT and wishes to resume them at discharge. ADVANCE DIRECTIVES:: none on file Has patient been provided with info about the portal/API?: Yes Did the patient sign up for the portal?: No CODE STATUS:: DNR/DNI INSURANCE COVERAGE / FINANCIAL ISSUES:: [facility] Medicare Replacement plan PRIMARY CARE PHYSICIAN:: Jazmin Garcias POTENTIAL DISCHARGE NEEDS:: follow up with PCP and plan of care PATIENT/FAMILY EDUCATION NEEDS:: Review of discharge instructions, limitations, activity, follow up plan, discuss [employer]. TRANSPORTATION:: via private vehicle with family PLAN:: Anticipate Negar will be discharged home, possibly with new home health services, when medically cleared by provider. She will follow up with her community providers and plan of care and transport with family. CM will follow and continue to assess for discharge needs. PFSH All Active Problems (Updated 05/14/23 @ 17:08 by Malou Thayer MD) Discharge planning issues (Acute) DVT prophylaxis (Acute) DM type 2 (diabetes mellitus, type 2) (Acute) Cerebellar infarct (Acute) Chronic hypoxemic respiratory failure (Chronic) Epigastric pain (Acute) Hypersomnia with sleep apnea (Acute) Chronic tracheobronchitis (Acute) Chronic ischemic heart disease (Chronic) Obstructive sleep apnea syndrome in adult (Acute) Medical History (Updated 05/14/23 @ 17:08 by Malou Thayer MD) Abdominal pain Acute allergic mucoid otitis media Allergic asthma Anxiety ASCVD (arteriosclerotic cardiovascular disease) Back pain Chest pain Chronic bronchitis with emphysema Chronic kidney disease Constipation COPD (chronic obstructive pulmonary disease) COPD exacerbation Depression Disorder of hyperalimentation Disorder of trunk Diverticulitis of colon Dyspnea GERD (gastroesophageal reflux disease) GERD (gastroesophageal reflux disease) History of COVID-19 02/16/2021 Hyperlipidemia Hypersomnia Hypertension Hypothyroidism Idiopathic osteoarthritis Joint pain Morbid obesity Nicotine dependence, cigarettes, uncomplicated Non-compliance with treatment Pain in right knee Personal history of colonic polyps Right lower quadrant pain Snoring Spondylosis of lumbar region without myelopathy or radiculopathy Synovial cyst of popliteal space Tobacco abuse Tracheobronchitis Tubular adenoma of colon Urinary incontinence, mixed Vocal cord dysfunction following prolonged intubation 12/2022 Surgical History (Updated 05/13/23 @ 17:53 by Stanley Li MD) Appendectomy 1981 section x2 Cholecystectomy 04/23/2012 Colonoscopy - MAC (06/13/16) EGD - MAC (06/13/16) History of hemorrhoidectomy 1999 History of tubal ligation 1980 Tracheostomy status for prolonged intubation [place] [facility] [place], removed 01/2023 Family History Mother Hypertension COPD (chronic obstructive pulmonary disease) Renal failure syndrome Father Hypertension COPD (chronic obstructive pulmonary disease) Coronary artery disease Social History Smoking/Tobacco Use Status: Former Tobacco Use Quit Date: 12/10/22 Tobacco: How many years used: 50 Smoking risk assessment performed?: Yes Alcohol Intake: never Drug use: Daily Substance use type: does not use Housing: house Communication Needs: Corrective Lenses Pets and animals: Yes (2 dogs, 1 cat) Do you feel safe at home: Yes Do you feel safe in your relationship?: Yes
--- NOTE | 2023-05-14 11:26 | IN_ITS ---
Date of service: 05/14/23 Time of Service: 09:32 PT Notes Visit Reasons: Acute CVA Physical Therapy Inpatient Initial Evaluation Date: 05/14/2023 Referring Doctor: Stanley Li MD PT Orders: PT CONSULT: Limited ability Precautions: Fall. Standard. Activity as tolerated. Patient Profile/Admitting Diagnosis: Patient is a 68-year-old female patient who presented to the ED on 05/13/2023 due to dizziness and imbalance that caused him to fell backward onto her bed at h ome. Patient is admitted to medsurg unit due to acute cerebellar infarct as seen on MRI, DM Type II, Chronic hypoxemic respiratory failure, epigastric pain, hypersomnia with sleep apnea, chronic tracheobronchitis, chroninc ischemic heart disease, and SARIAH. PMHX: All Active Problems?(Updated 05/13/23 @ 17:54 by Stanley Li MD) DM type 2 (diabetes mellitus, type 2) (Acute) Cerebellar infarct (Acute) Chronic hypoxemic respiratory failure (Chronic) Epigastric pain (Acute) Hypersomnia with sleep apnea (Acute) Chronic tracheobronchitis (Acute) Chronic ischemic heart disease (Chronic) Obstructive sleep apnea syndrome in adult (Acute) Medical History?(Updated 05/13/23 @ 17:54 by Stanley Li MD) Abdominal pain Acute allergic mucoid otitis media Allergic asthma Anxiety ASCVD (arteriosclerotic cardiovascular disease) Back pain Chest pain Chronic bronchitis with emphysema Chronic kidney disease Constipation COPD (chronic obstructive pulmonary disease) COPD exacerbation Depression Disorder of hyperalimentation Disorder of trunk Diverticulitis of colon Dyspnea GERD (gastroesophageal reflux disease) History of COVID-19 02/16/2021 Hyperlipidemia Hypersomnia Hypertension Hypothyroidism Idiopathic osteoarthritis Joint pain Morbid obesity Nicotine dependence, cigarettes, uncomplicated Non-compliance with treatment Pain in right knee Personal history of colonic polyps Right lower quadrant pain Snoring Spondylosis of lumbar region without myelopathy or radiculopathy Synovial cyst of popliteal space Tobacco abuse Tracheobronchitis Tubular adenoma of colon Urinary incontinence, mixed Vocal cord dysfunction following prolonged intubation 12/2022 Surgical History?(Updated 05/13/23 @ 17:53 by Stanley Li MD) Appendectomy 1980 section x2 Cholecystectomy 04/23/2012 Colonoscopy - MAC (06/13/16) EGD - MAC (06/13/16) History of hemorrhoidectomy 1999 History of tubal ligation 1980 [place] [facility] [place] Social History/Home Situation: Lives in a private home with her son. Uses a FWW occasionally. Equipment Owned/DME: FWW, SPC Subjective: Teary-eyed and anxious about her overall status. Complains about severe nausea. Wanted to know if she could take something for it. MICHELET Christensen asked Nurse David about the matter. Agreeable to be assisted out of bed to have a bowel movement. Objective: General Observation: Supine in bed. Emotionally labile. High BMI. Mental Status: Alert and oriented as to person, place, time, and purpose. Appearing highly anxious. Pain: None reported Vital Signs: Closley monitored by nursing staff ROM: Right Upper Extremity: Shoulder Flexion lacks the last 50% of AROM. Shoulder abduction lacks the last 50% of AROM. Elbow flexion WFL. Wrist flexion WFL. Functional opening and closing of hand WFL. Left Upper Extremity: Shoulder Flexion lacks the last 25% of AROM. Shoulder a bduction lacks the last 25% of AROM. Elbow flexion WFL. Wrist flexion WFL. Functional opening and closing of hand WFL. Right Lower Extremity: Hip flexion lacks the last 25% of AROM. Hip abduction lacks the last 25% of AROM. Knee flexion WFL. Ankle dorsiflexion to neutral only. Ankle plantarflexion WFL. Left Lower Extremity: Hip flexion lacks the last 25% of AROM. Hip abduction lacks the last 25% of AROM. Knee flexion WFL. Ankle dorsiflexion to neutral only. Ankle plantarflexion WFL. Strength: Right Upper Extremity: Shoulder flexors 3-/5. Shoulder abductors 3-/5. Elbow flexors 4-/5. Elbow extensors 4-/5. Circuit Walker strong. Left Upper Extremity: Shoulder flexors 3-/5. Shoulder abductors 3-/5. Elbow flexors 4-/5. Elbow extensors 4-/5. Circuit Walker strong. Right Lower Extremity: Hip flexors 3-/5. Hip abductors 4-/5. Knee flexors 4/5. Knee extensors 4-/5. Ankle dorsiflexors 3-/5. Ankle plantarflexors 4-/5. Left Lower Extremity: Hip flexors 3-/5. Hip abductors 4-/5. Knee flexors 4/5. Knee extensors 4-/5. Ankle dorsiflexors 3-/5. Ankle plantarflexors 4-/5. Bed Mobility/Transfers: Supine to sit contact guard assist Sit to supine contact guard assist Sit to stand contact guard assist with FWW Stand to sit contact guard assist with FWW Bed to bedside commode contact guard assist with FWW Bedside commode to bed contact guard assist with FWW Gait: Instructed patient with level surface ambulation of 8 steps + 8 steps feet requiring contact guard assist. Lluvia decreased. Step height decreased. Step length decreased. Balance: Static Sitting: Good Dynamic Sitting: Good Static Standing: Fair Dynamic Standing: Fair Special Tests: Mobility Limitations Standardized Measure [facility] AM-PAC 6 clicks Basic Mobility Inpatient Short Form: Raw Score: 18 CMS Score: 47% deficit NEURO: Rhomberg test: Positive Babinski- negative Clonus negative Tone in B UE-normotonic Tone in B LE-normotonic Pronator Drift-unable to test 4-Stage balance Test- Unable to maintain all four positions for 10 seconds Informed Consent/Education: Patient was instructed in purpose of PT consult and plan of care. Agreeable to proceed with established PT POC to achieve personal goals. Assessment: Strength symmetric except for pre-existing weak R shoulder (potentially needing repair). Severe nausea, emotional lability and anxiety limiting today's performance. Did not require a lot of physical assistance during transfer and short in-room ambulation. Patient presents with clinical signs and symptoms consistent with current/admitting diagnoses that have resulted to mobility limitations, gait instability, generalized weakness, and overall ADL decline as demonstrated by the following impairment level findings: 1. Decreased strength to B Ue/LE major muscle groups 2. Impaired sitting/standing balance 3. Impaired activity tolerance 4. Limitation of joint range of motion in R shoulder (not CVA-related) 5. High anxiety 6. Severe nausea Impairments are contributing to the following functional limitations: 1. Decline in bed mobility skills 2. Decline in transfer skills 3. Difficulty with ambulation without assistive device and physical assistance 4. Increased completion time for mobility ADL performance 5. Increased risk for falls 6. Difficulty with managing steps alone safely Patient is assessed as a 12197 moderate complexity based on the following: History: 68-year-old female with past medical history as indicated above Examination: Demonstrable impairment in strength, balance, and mobility level with underlying impairments and functional limitations as exhibited above as well as deficit score of 47% utilizing the [facility] Mobility Inpatient Short Form Presentation: Evolving Decision Makin moderate complexity Goals: Goals X1 week 1. Supine-Sit independent 2. Sit-Supine independent 3. Sit-Stand independent 4. Stand-Sit independent with FWW 5. Bed-Chair independent with FWW 6. Chair-Bed independent with FWW 7. Independent gait on level surface with use of FWW for at least 300 feet without report of pain nor dyspnea 9. Independent with home exercise program 10. Good static and dynamic standing balance/tolerance Plan of Care/Treatment Plan: 1-2x/day, 7 days/week x 1 week. Plan of care has been reviewed with the BIOINFORMATICS SCIENTIST providing the service under Physical Therapy direction. Initiate Physical Therapy intervention for pain management as needed, strengthening, bed mobility, transfers, gait, stairs, balance training, and use of assistive device. DISCHARGE RECOMMENDATIONS: [] Home with no services [] [X] Home with services. Patient will benefit from home health PT services in order to progress mobility level using least restrictive assistive ambulatory device, assess home safety, identify additional equipment needs, and establish a functional maintenance program that will increase ability of patient to remain at home. [] Home with outpatient PT [] [] SNF for continued rehabilitation [] [] Penitentiary [facility] [] [] SNF versus LTC based on ability to participate and progress [] TREATMENT CODE/TIME: 08800 x 18 minutes beginning at 9:32 AM. Thank you for the opportunity to participate in the care of this patient. Cristine Alcantara PT, DPT, CLT [facility] [place], [place]
[2023-05-14] MEDS: LORazepam 1 MG TAB PO ×2 (12:07→19:09)
[2023-05-14] MEDS: Mylanta Suspension 30 ML CUP PO ×2 (12:07→19:09)
--- NOTE | 2023-05-14 13:30 | DI.US_ITS ---
APPROVED REPORT EXAM: Comprehensive 2D, Doppler, and color-flow Echocardiogram Patient Location: In-Patient Room/Bed: [facility] Weight Clerk: Daphne Ferro RDCS (AE) Indications: CHF, CVA, bubble study Echo Enhancing Agent Indication: Rule out Shunt Agent(s) / Amount(s) Used: Agitated Saline 30.0 cc Comments: Contrast study was performed with 3 IV injections of 10ccs of agitated normal saline, at re st, with cough and post valsalva maneuver. Negative contrast study for shunt flow. Other Information Study Quality: Adequate Conclusion Normal left ventricular wall thickness and chamber size. There is mild left ventricular dysfunction. EF is 40 to 45% without segmental wall motion abnormalities Normal right ventricular size and systolic function Both atria are normal in size Injection of agitated saline does not demonstrate any intracardiac shunting Wall motion Left Ventricle The left ventricle is normal size. Left ventricular systolic function is mildly decreased. There is n ormal left ventricular wall thickness. There is global hypokinesis of the left ventricle. There is no ventricular septal defect visualized. LVEF is 40-45% Right Ventricle Right ventricle is grossly normal in size. Right ventricular systolic function is grossly normal. Atria The left atrium size is normal. The right atrium size is normal. Saline bubble contrast intravenous i njection does not demonstrate PFO. Great Vessels IVC is normal in size and collapses >50% with inspiration. Pericardium Trace pericardial effusion. 2D Dimensions IVSD d PLAX 0.74 cm F: 0.6-1.0 LV Vol A2C d MOD 51.1 mL LVPW d PLAX 0.75 cm F: 0.6 - 1.0 LV Vol A4C d MOD 85.7 mL LVID d PLAX 5.18 cm F: 3.8 - 5.2 LV EF A4C MOD 37.9 % LVDs 3.75 cm F: 2.2 - 3.5 LV EF A2C MOD 37.8 % LV EF Teichholz 52.2 % LV EF Biplane MOD 35.9 % LVEF (Monge's) 35.94 % F: 54 - 74 SV 23.80 mL LV Volume 51.07 mL F: 46 - 106 SV Index 12.91 mL/m2 LV Volume Index 27.60 mL/m2 F: 29 - 61 LV Vol Biplane MOD 66.2 mL FS 26.90 %
--- NOTE | 2023-05-14 15:37 | NCONE_ITS ---
Date of service: 05/14/23 Time of Service: 15:38 Assessment and Plan Assessment and plan (1) Cerebellar infarct: Status: Acute (2) Carotid stenosis, right: Status: Acute (3) Occlusion of right vertebral artery: Status: Acute Assessment and plan: #1. Acute R cerebellar stroke manifested by vertigo, imbalance, and nausea, most likely due to vertebral artery thrombosis/occlusive disease; despite being on DAPT with ASA and clopidogrel. However, prior records mention a history of atrial fibrillation which if present could instead explain cause of stroke. I recommend continued telemetry with 30 day extended cardiac monitoring at discharge as further work-up. Otherwise, in regards to stroke prevention/medications, current stroke occurred despite DAPT+ statin and excellent LDL. Without clear indication for anticoagulation at this time, consideration of switching clopidogrel to ticagrelor in case of resistance/poor metabolizer should be considered - at minimum for patient's mental health so that she can feel like something can be done to reduce her stroke risk - as right now she is quite tearful/discouraged and feeling rather hopeless and that she could have another stroke or at any moment. I reached out to [facility] given recent stent placement to discuss if switching clopidogrel to ticagrelor would be ok from cardiac stand point. They recommended calling tomorrow am to discuss with their interventional team. Continue PT/OT. #2. R carotid stenosis, asymptomatic. Not clearly evaluated on MRA due to motion artifact; but known from previous CTA in Jul 2022. Will plan to monitor as outpatient/consider returning back to [facility] - last seen in April 2021. Continue DAPT+statin as above. #3. Depression/anxiety. She was previously on sertraline which made symptoms worse, currently on duloxetine. Consider increase if mood remains poor. She should follow-up in neurology in 4-6 weeks. History of Present Illness History of Present Illness Chief Complaint: stroke Narrative: Handedness: right. HPI: Ms. Roberto is a 68 year-old woman with hypertension, hyperlipidemia, DM2, CHF, recent STEMI in Dec 2022 s/o PCI, stroke, COPD on 3L O2 at home, SARIAH, hypothyroidism, GERD. Ms. Roberto has numerous family members with her at bedside today. Ms. Roberto presented to the [facility] ER yesterday with 1 day of increasing dizziness (described as vertigo), imbalance, and nausea for which she underwent the work- up as below and was found to have an acute R cerebellar stroke. She is already on ASA 81mg, clopidogrel 75mg, and atorvastatin 80mg daily with good compliance. These medications have been continued through hospital admission. This afternoon, she reports finally feeling better with seeming resolution of her dizziness and nausea. She otherwise has a very complicated history as below which I was able to detail from review of her [facility] records: -Stroke, March 2021. She woke up with vision loss for which she was seen at [facility] and found to have bilateral posterior occipital infarcts on CTH imaging. CTA head/neck imaging reportedly showed a filling defect (thrombus) in the L vertebral artery. It also sounds like she had a brain MRI performed at [facility] in [place] post-discharge. She was on ASA 81mg at the time and switched to colopidgrel 75mg daily for secondary stroke prevention. -?TIA, Jul 2022. Ms. Roberto was seen at [facility] for transient dysarthria. She underwent CTA head/neck which reportedly showed R carotid bulb stenosis with no other significant stenosis. [facility] notes indicate ?afib in March 2022, but I don't know where they found this information at. -STEMI, 12/27/22-02/13/23 at [facility] - stay complicated by prolonged intubation s/p trach, vocal cord paralysis, dysphagia, CHF exacerbation, COPD exacerbation, pneumonia, ROMEO, infectious vs ischemic colitis, and vaginal candidiasis; s/p PCI, placed on ASA 81mg+clopidgorel 75mg+ statin daily. Family notes that she was told that she would likely need another cardiac stent later this fall. Work-up: -MRI brain w/o (05/13/23): Acute R cerebellar infarcts. Old bilateral posterior occipital strokes. Old L cerebellar microhemorrhage. I reviewed these images personally and this is my personal interpretation. -MRA head/neck (05/13/23): Apparent R vertebral occlusion. L vertebral artery with focal narrowing distally without significant stenosis and no intraluminal thrombus as seen previously. ? R carotid artery stenosis complicated by motion artifact. I reviewed these images personally and this is my personal interp retation. -TTE (05/14/23): EF 40-45% with no wall motion abnormalities. LA normal. No PFO. -Labs: A1c 8.0, LDL 44 Review of Systems All systems reviewed & are unremarkable except as noted in HPI and below PFSH All Active Problems (Updated 05/14/23 @ 21:22 by Cheyenne Smith MD) Occlusion of right vertebral artery (Acute) Carotid stenosis, right (Acute) Discharge planning issues (Acute) DVT prophylaxis (Acute) DM type 2 (diabetes mellitus, type 2) (Acute) Cerebellar infarct (Acute) Chronic hypoxemic respiratory failure (Chronic) Hypersomnia with sleep apnea (Chronic) Chronic tracheobronchitis (Chronic) Chronic ischemic heart disease (Chronic) Obstructive sleep apnea syndrome in adult (Acute) Medical History (Updated 05/14/23 @ 21:22 by Cheyenne Smith MD) Abdominal pain Acute allergic mucoid otitis media Allergic asthma Anxiety ASCVD (arteriosclerotic cardiovascular disease) Back pain Chest pain Chronic bronchitis with emphysema Chronic kidney disease Constipation COPD (chronic obstructive pulmonary disease) COPD exacerbation Depression Disorder of hyperalimentation Disorder of trunk Diverticulitis of colon Dyspnea GERD (gastroesophageal reflux disease) GERD (gastroesophageal reflux disease) History of COVID-19 02/16/2021 Hyperlipidemia Hypersomnia Hypertension Hypothyroidism Idiopathic osteoarthritis Joint pain Morbid obesity Nicotine dependence, cigarettes, uncomplicated Non-compliance with treatment Pain in right knee Personal history of colonic polyps Right lower quadrant pain Snoring Spondylosis of lumbar region without myelopathy or radiculopathy Synovial cyst of popliteal space Tobacco abuse Tracheobronchitis Tubular adenoma of colon Urinary incontinence, mixed Vocal cord dysfunction following prolonged intubation 12/2022 Surgical History (Updated 05/13/23 @ 17:53 by Stanley Li MD) Appendectomy 1980 section x2 Cholecystectomy 04/23/2012 Colonoscopy - MAC (06/13/16) EGD - MAC (06/13/16) History of hemorrhoidectomy 1999 History of tubal ligation 1980 Tracheostomy status for prolonged intubation at [facility] 01/2023, removed 01/2023 Family History Mother Hypertension COPD (chronic obstructive pulmonary disease) Renal failure syndrome Father Hypertension COPD (chronic obstructive pulmonary disease) Coronary artery disease Social History Smoking/Tobacco Use Status: Former Tobacco Use Quit Date: 12/10/22 Tobacco: How many years used: 50 Smoking risk assessment performed?: Yes Alcohol Intake: never Drug use: Daily Substance use type: does not use Housing: house Communication Needs: Corrective Lenses Pets and animals: Yes (2 dogs, 1 cat) Do you feel safe at home: Yes Do you feel safe in your relationship?: Yes Visit Medication and Allergies Active Medications Generic Name Dose Route Start Last Admin Trade Name Freq PRN Reason Stop Dose Admin Acetaminophen 0 mg 05/13/23 16:52 05/13/23 21:00 Acetaminophen 325 Mg Tab PO 325 mg Q4H PRN PRN Administration Al Hydrox/Mg Hydrox/Simethicone 30 ml 05/13/23 16:52 05/14/23 12:07 Mylanta Suspension 30 Ml Cup PO 30 ml Q2H PRN PRN Administration Albuterol Sulfate 2.5 mg 05/13/23 16:52 Albuterol 2.5 Mg/3 Ml Inh Soln Vial UPD Q2H PRN PRN Albuterol Sulfate 2 puff 05/13/23 17:04 Albuterol Hfa 8 Gm 60 Puff Inh IH QID PRN PRN Aspirin 81 mg 05/14/23 08:30 05/14/23 08:02 Aspirin E.C. 81 Mg Tabec PO 81 mg DAILY YOANNA Administration Atorvastatin Calcium 80 mg 05/14/23 08:30 05/14/23 08:01 Atorvastatin 20 Mg Tab PO 80 mg DAILY YOANNA Administration Budesonide/Formoterol Fumarate 2 puff 05/13/23 20:00 05/14/23 07:54 Budesonide/Formoterol 160/4.5 6 Gm 60 Puff Inh IH 2 puffs BID YOANNA Administration Carvedilol 6.25 mg 05/13/23 20:00 05/14/23 08:02 Carvedilol 6.25 Mg Tab PO 6.25 mg BID YOANNA Administration Clopidogrel Bisulfate 75 mg 05/14/23 08:30 05/14/23 08:02 Clopidogrel 75 Mg Tab PO 75 mg DAILY YOANNA Administration Device 1 each 05/13/23 18:00 Inhaler, Assist Device MC DIRECTED YOANNA Dextrose 0 gm 05/13/23 17:33 Glucose Oral Gel 15 Gm/37.5 Gm Tube PO DIRECTED PRN Dextrose/Water 0 gm 05/13/23 17:33 Dextrose 50%-Water 25 Gm/50 Ml Syr IVP DIRECTED PRN Dimethicone/Zinc Oxide 0 gm 05/13/23 16:47 Olga Protect Cream 142 Gm Tube TP PRN PRN Docusate Sodium 100 mg 05/13/23 16:52 Docusate Sodium 100 Mg Cap PO TID PRN PRN Docusate Sodium 100 mg 05/14/23 08:30 05/14/23 08:02 Docusate Sodium 100 Mg Cap PO 100 mg DAILY YOANNA Administration Duloxetine HCl 30 mg 05/14/23 08:30 05/14/23 08:02 Duloxetine 30 Mg Cap PO 30 mg DAILY YOANNA Administration Furosemide 20 mg 05/14/23 08:30 05/14/23 08:02 Furosemide 20 Mg Tab PO 20 mg DAILY YOANNA Administration Insulin Aspart 0 units 05/14/23 08:00 05/14/23 12:07 Insulin Aspart 300 Units/3 Ml Pen SC 2 units 0800,1200,1700 [facility] Administration Protocol Insulin Glargine 18 units 05/13/23 22:00 05/13/23 22:36 Insulin Glargine 300 Units/3 Ml Pen SC 18 unit HS YOANNA Administration Levothyroxine Sodium 100 mcg 05/14/23 06:00 05/14/23 05:47 Levothyroxine 100 Mcg Tab PO 100 mcg DAILY@0600 [facility] Administration Lorazepam 1 mg 05/13/23 17:04 05/14/23 12:07 Lorazepam 1 Mg Tab PO 1 mg TID PRN PRN Administration anxiety Magnesium Hydroxide 30 ml 05/13/23 16:52 Milk Of Magnesia 30 Ml Cup PO DAILY PRN PRN Magnesium Oxide 400 mg 05/14/23 08:30 05/14/23 08:02 Magnesium Oxide 400 Mg Tab PO 400 mg DAILY YOANNA Administration Nicotine 14 mg 05/13/23 16:52 Nicotine 14 Mg/24 Hr Patch TD DAILY PRN PRN Nitroglycerin 0.4 mg 05/13/23 17:04 Nitroglycerin 0.4 Mg Tab SL Q5 MIN PRN X3 PRN Ondansetron HCl 4 mg 05/14/23 07:09 Ondansetron O.D.T. 4 Mg Tabef PO Q8H PRN PRN Polyethylene Glycol 17 gm 05/13/23 16:52 Polyethylene Glycol 3350 17 Gm Packet PO DAILY PRN PRN Constipation Roflumilast 500 mcg 05/14/23 08:30 05/14/23 08:02 Roflumilast 500 Mcg Tab PO 500 mcg DAILY YOANNA Administration Spironolactone 50 mg 05/14/23 08:30 05/14/23 08:02 Spironolactone 50 Mg Tab PO 50 mg DAILY YOANNA Administration Allergies cephalexin monohydrate [From Keflex] Allergy (Severe, Unverified 05/13/23 11:08) Tongue swelling, difficult to breath Macrolide Antibiotics Allergy (Severe, Verified 05/13/23 11:07) facial swelling Penicillins Allergy (Severe, Unverified 05/13/23 11:07) Swelling, throat closes up azithromycin Allergy (Intermediate, Unverified 05/13/23 11:07) GI upset, itching codeine Allergy (Intermediate, Unverified 05/13/23 11:07) Skin Rash, itching Latex, Natural Rubber Adverse Reaction (Severe, Unverified 05/13/23 11:07) Blister Exam Narrative Exam Narrative: Physical Exam: Gen: Patient of apparent stated age, tearful at times, on supplemental O2 1L via NC Head and face: no facial or cranial abnormalities Neck: Supple, no meningismus, no occipital tenderness CV: RRR, distant heart sounds Resp: CTA B/L Abd: soft, nontender, nondistended Ext: Mild bilateral LE edema. No clubbing or cyanosis. No bony deformity. Neuro Exam: Language: fluency, naming, repetition, and comprehension intact; Mental Status: AAO, current events and fund of knowledge somewhat limited Speech: mild dysarthria Cranial nerves: Funduscopy: not performed CN II: L homonymous hemianopsia CN III, IV, : extraocular movements intact, no nystagmus, pupils symmetric and reactive to light though L pupil slightly larger than R CN V: face sensation intact to LT and PP CN VII: no facial asymmetry noted CN VIII: hearing intact bilaterally CN IX, X: palate rises symmetrically CN XI: trapezius/SCM 5/5 bilaterally CN XII: protrudes tongue symmetrically Sensory: intact to LT, PP, vibration, and joint position in all extremities Motor: bulk and tone intact. Fine motor movements reduced bilaterally - mild. Unable to test pronator drift due to shoulder issues. Strength 4/5 throughout including the deltoids, biceps, triceps, wrist extensors, hip flexors, knee flexors, knee extensors, ankle flexors, and ankle extensors. Reflexes: hyporeflexic throughout with absent LE reflexes complicated by body habitus; toes down going bilaterally; Coordination: FTN and HTS intact bilaterally - no obvious limb ataxia Gait: slightly wide base with walker Results Last Vital Signs Temp 97.7 F 05/14/23 15:17 Pulse 74 05/14/23 15:17 Resp 18 05/14/23 15:17 BP 135/78 05/14/23 15:17 Pulse Ox 99 05/14/23 15:17 Labs 05/14/23 06:20 05/14/23 06:20 Labs: Laboratory Results - last 24 hr 05/14/23 05/14/23 05/14/23 06:20 06:20 06:20 WBC 7.70 RBC 4.43 Hgb 12.4 Hct 38.0 MCV 86 MCH 28.0 MCHC 32.6 RDW 14.3 Plt Count 253 MPV 9.6 Immature Gran % 0.4 Neutrophils % 42.4 Lymphocytes % 48.8 Monocytes % 5.7 Eosinophils % 1.9 Basophils % 0.8 Nucleated RBC % 0.0 Absolute Neutrophils 3.26 Absolute Lymphocytes 3.76 H Absolute Monocytes 0.44 Absolute Eosinophils 0.15 Absolute Basophils 0.06 Sodium 139 Potassium 3.7 Chloride 102 Carbon Dioxide 26.4 Anion Gap 10.6 BUN 17 Creatinine 0.8 Est GFR (CKD-EPI 2020) 80.71 Glucose 143 H Hemoglobin A1c 8.0 H Calcium 9.6 Magnesium Triglycerides 161 H Total Cholesterol 124 LDL Cholesterol, Calc 44 HDL Cholesterol 48 Add-On Test Request 05/14/23 05/14/23 06:20 07:56 WBC RBC Hgb Hct MCV MCH MCHC RDW Plt Count MPV Immature Gran % Neutrophils % Lymphocytes % Monocytes % Eosinophils % Basophils % Nucleated RBC % Absolute Neutrophils Absolute Lymphocytes Absolute Monocytes Absolute Eosinophils Absolute Basophils Sodium Potassium Chloride Carbon Dioxide Anion Gap BUN Creatinine Est GFR (CKD-EPI 2020) Glucose Hemoglobin A1c Calcium Magnesium 1.9 Triglycerides Total Cholesterol LDL Cholesterol, Calc HDL Cholesterol Add-On Test Request DONE
--- NOTE | 2023-05-14 17:03 | PGE_ITS ---
Date of Service Date of service: 05/14/23 Time of Service: 17:03 Assessment and Plan Assessment and plan (1) Cerebellar infarct: Status: Acute Assessment and plan: Dr Smith is considering that perhaps the patient does not metabolize plavix and would benefit from switching to an alternative antiplatelet agent. She has reached out to [facility] cardiology about it. Will follow up. (2) DM type 2 (diabetes mellitus, type 2): Status: Acute Assessment and plan: A1C of 8.0. Continue basal bolus insulin. (3) Chronic hypoxemic respiratory failure: Status: Chronic Assessment and plan: At baseline. H/o intubation/tracheostomy in 01/01, now removed, continues to wheeze - I suspect due to tracheal scarring from having had a trach. Continue CPAP. (4) Epigastric pain: Status: Resolved Assessment and plan: Resolved. No further workup. (5) Hypersomnia with sleep apnea: Status: Chronic Assessment and plan: Continue CPAP (6) Chronic tracheobronchitis: Status: Chronic Assessment and plan: Does have upper airway wheezing due to this. (7) Chronic ischemic heart disease: Status: Chronic Assessment and plan: H/o NSTEMI, PCI/Stent. No ACS on this admission. Echo w/o wall motion abnormalities today. See discussion above re changing antiplatelet therapy. (8) Obstructive sleep apnea syndrome in adult: Status: Acute Assessment and plan: Continue CPAP (9) DVT prophylaxis: Status: Acute Assessment and plan: SC heparin (10) Discharge planning issues: Status: Acute Assessment and plan: DNR/DNI Anticipate discharge home tomorrow Await PT recommendations as to home health. Subjective Subjective Interval history since last seen: C/o feeling a little dizzy still, but better than yesterday. Denies CP, SOB, n/v. Case discussed with Dr Smith who is discussing a possible antiplatelet therapy change with [facility] cardiology. Exam Narrative Exam Narrative: General: pleasant middle-aged female, A&Ox3, NAD, sitting up in bed HEENT: EOMI, MMM Heart: RRR Lungs: expiratory wheezing coming from upper airway Abdomen: soft, nontender, nondistended Extremities: no edema BLEs Objective Last Vital Signs Temp 36.5 C 05/14/23 15:17 Pulse 74 05/14/23 15:17 Resp 18 05/14/23 15:17 BP 135/78 05/14/23 15:17 Pulse Ox 99 05/14/23 15:17 Laboratory Results - last 24 hr 05/14/23 05/14/23 05/14/23 06:20 06:20 06:20 WBC 7.70 RBC 4.43 Hgb 12.4 Hct 38.0 MCV 86 MCH 28.0 MCHC 32.6 RDW 14.3 Plt Count 253 MPV 9.6 Immature Gran % 0.4 Neutrophils % 42.4 Lymphocytes % 48.8 Monocytes % 5.7 Eosinophils % 1.9 Basophils % 0.8 Nucleated RBC % 0.0 Absolute Neutrophils 3.26 Absolute Lymphocytes 3.76 H Absolute Monocytes 0.44 Absolute Eosinophils 0.15 Absolute Basophils 0.06 Sodium 139 Potassium 3.7 Chloride 102 Carbon Dioxide 26.4 Anion Gap 10.6 BUN 17 Creatinine 0.8 Est GFR (CKD-EPI 2020) 80.71 Glucose 143 H Hemoglobin A1c 8.0 H Calcium 9.6 Magnesium Triglycerides 161 H Total Cholesterol 124 LDL Cholesterol, Calc 44 HDL Cholesterol 48 Add-On Test Request 05/14/23 05/14/23 06:20 07:56 WBC RBC Hgb Hct MCV MCH MCHC RDW Plt Count MPV Immature Gran % Neutrophils % Lymphocytes % Monocytes % Eosinophils % Basophils % Nucleated RBC % Absolute Neutrophils Absolute Lymphocytes Absolute Monocytes Absolute Eosinophils Absolute Basophils Sodium Potassium Chloride Carbon Dioxide Anion Gap BUN Creatinine Est GFR (CKD-EPI 2020) Glucose Hemoglobin A1c Calcium Magnesium 1.9 Triglycerides Total Cholesterol LDL Cholesterol, Calc HDL Cholesterol Add-On Test Request DONE Objective Narrative Objective Narrative: Echo: Normal left ventricular wall thickness and chamber size.? There is mild left ventricular dysfunction.? EF is 40 to 45% without segmental wall motion abnormalities Normal right ventricular size and systolic function Both atria are normal in size Injection of agitated saline does not demonstrate any intracardiac shunting. Progress Note: Quality Stroke Onset of Symptoms Date: 05/12/23 PAWSS Pt Consumed Any Amount of Alcohol Within the Last 30 days OR had positive BEN Upon Admission: No Time Spent with Patient Time Spent with Patient: 25-34 minutes Time was spent: preparing to see the patient(eg.review tests), obtaining and/or reviewing separately otained hiistory, ordering medications,tests, procedures, referring, communicating with other health director career, indepentently interpreting results, counseling the patient and care coordination
[2023-05-14] MEDS: Heparin 5,000 UNITS/ML VIAL 5000 UNITS SC (17:24)
[2023-05-14] MEDS: Insulin Glargine 300 UNITS/3 ML PEN 18 UNITS SC (21:09)
[2023-05-15] VITALS (10 sets, daily range): BP systolic 106–143; BP diastolic 65–84; PULSE 63–79; RESP 15–20; TEMP 36.1–37; O2SAT 95–99
[2023-05-15] MEDS: Heparin 5,000 UNITS/ML VIAL 5000 UNITS SC ×3 (01:08→17:59)
[2023-05-15] MEDS: Levothyroxine 100 MCG TAB PO (05:21)
[2023-05-15] MEDS: Budesonide/Formoterol 160/4.5 6 GM 60 PUFF INH IH ×2 (07:35→19:27)
[2023-05-15] MEDS: Atorvastatin 20 MG TAB 80 MG PO (08:02)
[2023-05-15] MEDS: Aspirin E.C. 81 MG TABEC PO (08:02)
[2023-05-15] MEDS: Furosemide 20 MG TAB PO (08:02)
[2023-05-15] MEDS: Insulin Aspart 300 UNITS/3 ML PEN SC ×3 (08:02→16:52)
[2023-05-15] MEDS: Magnesium Oxide 400 MG TAB PO (08:02)
[2023-05-15] MEDS: Carvedilol 6.25 MG TAB PO ×2 (08:02→19:23)
[2023-05-15] MEDS: Spironolactone 50 MG TAB PO (08:02)
[2023-05-15] MEDS: Roflumilast 500 MCG TAB PO (08:02)
[2023-05-15] MEDS: Clopidogrel 75 MG TAB PO (08:02)
[2023-05-15] MEDS: Docusate Sodium 100 MG CAP PO (08:02)
[2023-05-15] MEDS: DULoxetine 30 MG CAP PO (08:02)
[2023-05-15 08:12] LABS: Anion Gap 9.7 mmol/L (3-11); BUN 22 mg/dL (7-18); CO2 26.3 mmol/L (21.0-32.0); CREATININE 0.9 mg/dL (0.55-1.02); Calcium 9.1 mg/dL (8.5-10.1); Chloride 100 mmol/L (98-107); Estimated GFR 70.07 (mL/min/1.73m2); Glucose 212 mg/dL (74-106); Magnesium 1.9 mg/dL (1.8-2.4); Potassium 3.7 mmol/L (3.5-5.1); Sodium 136 mmol/L (136-145)
[2023-05-15] MEDS: LORazepam 1 MG TAB PO ×3 (08:59→19:23)
--- NOTE | 2023-05-15 10:04 | OT.INNT ---
Occupational Therapy Notes 05/15/23 Pt refused OT consult today reporting that she is going home and would like to hold. Aniya Bansal, OTR/L
[2023-05-15] MEDS: Mylanta Suspension 30 ML CUP PO (10:25)
--- NOTE | 2023-05-15 10:29 | W.NOCTURNAL ---
Date of service: 05/24/23 Time of Service: 21:39 Nocturnal Oximetry Note: Overnight Oximetry Amount of time analyzed: 12 hours 39 minutes Number of minutes under 88%: 23.2 minutes SPENCER: 2.6 Appearance of oxygen saturation pattern: gradual and sharp decreases in SpO2 which could reflect pulmonary or cardiac disease Recommendation: consider sleep study Nelia Dubose MD Pulmonary & Critical Care Medicine
--- NOTE | 2023-05-15 12:59 | PDOC.CMPRO ---
Date of service: 05/15/23 Time of Service: 12:59 Care Management Progress Note Progress Note Text Progress Note Text: S/O: Per MD, with continued stability, Negar is anticipated to discharge tomorrow with new VNA orders to O/E VNA. New medication ordered today; sent to pharmacy to determine patient cost/need for prior authorization, per [employer] Pharmacy states that the medication is fully covered, though needs to be ordered; anticipated it will be available for the patient tomorrow. CM continues to follow. A: 68 year old admitted to [facility] 05/14/23 for Acute CVA P: Negar will be discharged home, with new orders for PT/OT home health services, when medically cleared by provider. She has been approved for LTM and her DIL, Zoltan Munguia will be her caregiver. She will follow up with her community providers and plan of care and transport with family.
--- NOTE | 2023-05-15 13:00 | PTTR_ITS ---
Date of service: 05/15/23 Time of Service: 09:29 PT Notes Visit Reasons: Acute CVA Physical Therapy Inpatient Treatment Note Date: 05/15/2023 Subjective: Feels much better Objective: General Observation: Supine in bed.? Emotionally labile. High BMI.? Mental Status: Alert and oriented as to person, place, time, and purpose. Appearing highly anxious. Pain: None reported Vital Signs: Closley monitored by nursing staff Bed Mobility/Transfers: Supine to sit stand by assist Sit to supine stand by assist Sit to stand stand by assist with FWW Stand to sit stand by assist with FWW Gait: Instructed patient with level surface ambulation of 150 feet + 150 feet feet requiring stand by assist. Lluvia decreased. Step height decreased. Step length decreased. No ataxia noted however observed some waddling. Complained of shortness of breath but oxygen saturation is at 93% on RA. Balance: Static Sitting: Good Dynamic Sitting: Good Static Standing: Fair Dynamic Standing: Fair Assessment: Tolerated significantly more distance today using FWW. Nausea negligible. Gait pattern safe, no ataxia noted. Mild lightheadedness and fatigue after hallway ambulation. Will need FWW at home to maximize independence and reduce fall risk. Patient was fitted and provided with new FWW for home during this session. DISCHARGE RECOMMENDATIONS: [] ? Home with no services [] [X] ? Home with services.? Patient will benefit from home health PT services in order to progress mobility level using least restrictive assistive ambulatory device, assess home safety, identify additional equipment needs, and establish a functional maintenance program that will increase ability of patient to remain at home. [] ? Home with outpatient PT [] [] ? SNF for continued rehabilitation [] [] ? [facility] [] [] ? SNF versus LTC based on ability to participate and progress [] TREATMENT CODE/TIME: 18320 x 27 minutes beginning at 9:29 AM.
--- NOTE | 2023-05-15 14:14 | PGE_ITS ---
Date of Service Date of service: 05/15/23 Time of Service: 14:14 Assessment and Plan Assessment and plan (1) Cerebellar infarct: Status: Acute Assessment and plan: [facility] [place] agrees that plavix should be changed to ticagrelor and continued on aspirin. Will load her with 180 mg of ticagrelor in am tomorrow (24 hrs after plavix) followed by 90 mg PO BID. Has a new R vertebral artery occlusion which happened while on plavix, suggesting that the patient may not be metabolizing plavix properly. The patient does have a h/o paroxysmal Afib, cardiology mentioned, but we d iscussed how this is likely not related. Having said this, she does need to be discharged on a 30 day event recorder. (2) DM type 2 (diabetes mellitus, type 2): Status: Acute Assessment and plan: A1C of 8.0. Continue basal bolus insulin. (3) Chronic hypoxemic respiratory failure: Status: Chronic Assessment and plan: At baseline. H/o intubation/tracheostomy in 01/01, now removed, continues to wheeze - I suspect due to tracheal scarring from having had a trach. Not using CPAP, per RT. (4) Epigastric pain: Status: Resolved Assessment and plan: Resolved. No further workup. (5) Hypersomnia with sleep apnea: Status: Chronic Assessment and plan: Patient elected to use nocturnal oxygen over CPAP (prior to the hospitalization). (6) Chronic tracheobronchitis: Status: Chronic Assessment and plan: Does have upper airway wheezing due to this. Can follow up with speech therapy as outpatient is so desires. (7) Chronic ischemic heart disease: Status: Chronic Assessment and plan: H/o NSTEMI, PCI/Stent. No ACS on this admission. Echo w/o wall motion abnormalities. See discussion above re changing antiplatelet therapy. (8) Obstructive sleep apnea syndrome in adult: Status: Acute Assessment and plan: Continue nocturnal O2. (9) DVT prophylaxis: Status: Acute Assessment and plan: SC heparin (10) Discharge planning issues: Status: Acute Assessment and plan: DNR/DNI Anticipate discharge home tomorrow Would benefit from home health PT on discharge, per PT. Will need a cardiac event recorder on discharge. Subjective Subjective Interval history since last seen: Ms Roberto states she was very dizzy and a little nauseated this morning. She describes this sensation during the episode of trying to get from chair to bed. She felt weak and thought that she might fall or pass out. She feels a lot better now. She is only slightly dizzy. Denies CP, endorses some SOB which she does associate with nausea. Her O2 sats have been 96-98% on RA. She is not nauseated now. I spoke with [facility] cardiology today, who did agree to have the plavix switched to ticagrelor after a loading dose of 180 mg 24 hrs after the last dose of plavix. The patient should remain on baby aspirin and then be continued on ticagrelor 90 mg PO BID. Exam Narrative Exam Narrative: General: pleasant middle-aged female, A&Ox3, NAD, sitting up in bed, anxious and tearful HEENT: EOMI, MMM Heart: RRR Lungs: expiratory wheezing coming from upper airway Abdomen: soft, nontender, nondistended Extremities: no edema BLEs Objective Last Vital Signs Temp 37.0 C 05/15/23 12:31 Pulse 63 05/15/23 12:31 Resp 17 05/15/23 12:31 BP 119/70 05/15/23 12:31 Pulse Ox 98 05/15/23 12:31 Laboratory Results - last 24 hr 05/15/23 06:20 Sodium 136 Potassium 3.7 Chloride 100 Carbon Dioxide 26.3 Anion Gap 9.7 BUN 22 H Creatinine 0.9 Est GFR (CKD-EPI 2020) 70.07 Glucose 212 H Calcium 9.1 Magnesium 1.9 Progress Note: Quality Stroke Onset of Symptoms Date: 05/12/23 PAWSS Pt Consumed Any Amount of Alcohol Within the Last 30 days OR had positive BEN Upon Admission: No Time Spent with Patient Time Spent with Patient: 35-49 minutes Time was spent: preparing to see the patient(eg.review tests), obtaining and/or reviewing separately otained hiistory, ordering medications,tests, procedures, referring, communicating with other health career technology teacher, indepentently interpreting results, counseling the patient and care coordination
--- NOTE | 2023-05-15 15:16 | CHAPLAIN ---
Negar was in bed when I visited. She is soft spoken and very pleasant. She is a member of the [employer] in [place] and attends with her son and other family members. This past year Negar said she had a heart attack, had a stent placed, was in the hospital for 3 months, then had a trach, went to rehab before going home. She said she is worried that that she doesn't have enough missy because she scared. We talked about fear being a very human emotion. I offered a prayer with Negar. Negar receives good support from her brother in [place] who she visits with using her iPad. While she was telling me how much she loves her family, three family members from [place] walked in.
--- NOTE | 2023-05-15 15:29 | PT.INTREAT ---
PT Notes Visit Reasons: Acute CVA Date: 05/15/2023 Subjective: Pt in bed when approached for therapy this afternoon. Objective: Vital Signs: Closley monitored by nursing staff Bed Mobility/Transfers: Supine to sit stand by assist Sit to supine stand by assist Sit to stand stand by assist with FWW Stand to sit stand by assist with FWW Gait: Instructed patient with level surface ambulation of 300' requiring stand by assist. Lluvia decreased. Step height decreased. Step length decreased.? No ataxia noted however observed some waddling.? Complained of shortness of breath but oxygen saturation is at 98% on RA.? Therapeutic Procedures [id number]: Pt able to perform sit to stand [id number] taking seated rest break in between pt cued for DBE to help prevent SOB, side stepping entire length of bed 6x with BUE support, side stepping entire length of bed 4x without UE support, transfers going back in bed min A for LE elevation to get centered in bed. Balance: Static Sitting: Good Dynamic Sitting: Good Static Standing: Fair Dynamic Standing: Fair Assessment: Pt able to complete big loop without CAMPBELL, pt did not require standing rest breaks, pt slighly SOB getting back in bed which resolve quickly after DBE. 98% SAo2 pos session. DISCHARGE RECOMMENDATIONS: [] ? Home with no services [] [X] ? Home with services.? Patient will benefit from home health PT services in order to progress mobility level using least restrictive assistive ambulatory device, assess home safety, identify additional equipment needs, and establish a functional maintenance program that will increase ability of patient to remain at home. [] ? Home with outpatient PT [] [] ? SNF for continued rehabilitation [] [] ? [facility] Technician Care [] [] ? SNF versus LTC based on ability to participate and progress [] TREATMENT CODE/TIME: [id number] (2:30-2:53pm)
[2023-05-15] MEDS: Insulin Glargine 300 UNITS/3 ML PEN 18 UNITS SC (21:14)
[2023-05-16] VITALS (7 sets, daily range): BP systolic 101–139; BP diastolic 58–82; PULSE 69–90; RESP 16–18; TEMP 36.4–37; O2SAT 94–100
[2023-05-16] MEDS: Heparin 5,000 UNITS/ML VIAL 5000 UNITS SC ×2 (02:52→10:13)
[2023-05-16] MEDS: Levothyroxine 100 MCG TAB PO (05:09)
[2023-05-16 07:20] LABS: HCT 35.7 % (36.0-46.0); HGB 11.8 g/dL (11.2-15.7); MCH 28.6 pg (27.0-33.0); MCHC 33.1 % (32.0-36.0); MCV 86 fL (80-95); MPV 10.1 fL (8.0-11.0); Platelet Count 230 10^3/uL (130-400); RBC 4.13 10^6/uL (3.93-5.22); RDW 14.4 % (11.7-14.6); RDW-SD 45.3 fL; WBC 9.31 10^3/uL (4.4-10.8)
[2023-05-16] MEDS: Budesonide/Formoterol 160/4.5 6 GM 60 PUFF INH IH (07:47)
[2023-05-16] MEDS: Ticagrelor 90 MG TAB 180 MG PO (08:09)
[2023-05-16] MEDS: DULoxetine 30 MG CAP PO (08:09)
[2023-05-16] MEDS: Atorvastatin 20 MG TAB 80 MG PO (08:10)
[2023-05-16] MEDS: Furosemide 20 MG TAB PO (08:10)
[2023-05-16] MEDS: Spironolactone 50 MG TAB PO (08:10)
[2023-05-16] MEDS: Carvedilol 6.25 MG TAB PO (08:10)
[2023-05-16] MEDS: Aspirin E.C. 81 MG TABEC PO (08:10)
[2023-05-16] MEDS: Magnesium Oxide 400 MG TAB PO (08:10)
[2023-05-16] MEDS: Roflumilast 500 MCG TAB PO (08:10)
[2023-05-16] MEDS: Insulin Aspart 300 UNITS/3 ML PEN SC ×2 (08:11→11:32)
[2023-05-16] MEDS: LORazepam 1 MG TAB PO ×2 (09:17→14:30)
--- NOTE | 2023-05-16 09:46 | PT.INNT ---
PT Notes Visit Reasons: Acute CVA Pt refused x 2 she is dizzy and sick to her stomach and feels she just needs to rest today.
[2023-05-16] MEDS: Mylanta Suspension 30 ML CUP PO (10:13)
[2023-05-16] MEDS: Scopolamine 1 MG/3 DAYS PATCH TD (10:28)
[2023-05-16] MEDS: Albuterol 2.5 MG/3 ML INH SOLN VIAL UPD (11:38)
--- NOTE | 2023-05-16 13:02 | DSE_ITS ---
Date of service: 05/16/23 Time of Service: 13:03 DS: Diagnosis Discharge Diagnosis (1) Cerebellar infarct: Status: Acute Asessment and Plan: [facility] cardiology agreed that plavix should be changed to ticagrelor and continued on aspirin. Initial load of 180 mg of ticagrelor administered ollowed by 90 mg PO BID. Has a new? R vertebral artery occlusion which happened while on plavix, suggesting that the patient may not be metabolizing plavix properly. The patient does have a h/o paroxysmal Afib, cardiology mentioned, but we discussed how this is likely not related. Having said this, she will be disc harged on a 30 day event recorder. Neurology, Dr Smith, was consulted. She recommends f/u with her in 4-6 weeks and will discuss a possible return back to [facility] vascular surgery; last seen in April of 2021. (2) DM type 2 (diabetes mellitus, type 2): Status: Acute Asessment and Plan: A1c of 8. Cont basal/bolus insulin and home diabetic diet. PCP f/u. (3) Chronic hypoxemic respiratory failure: Status: Chronic Asessment and Plan: At baseline. H/o intubation/tracheostomy in 01/01, now removed, continues to wheeze - suspect this is due to tracheal scarring from having had a trach. Not using CPAP, per RT. (4) Epigastric pain: Status: Resolved Asessment and Plan: Resolved. (5) Hypersomnia with sleep apnea: Status: Chronic Asessment and Plan: Patient had previously elected to use nocturnal oxygen instead of CPAP (6) Chronic tracheobronchitis: Status: Chronic Asessment and Plan: Consider f/u with speech therapy as outpt. per patients desire. (7) Chronic ischemic heart disease: Status: Chronic Asessment and Plan: H/o NSTEMI, PCI/Stent. No ACS on this admission. Echo w/o wall motion abnormalities. (8) Obstructive sleep apnea syndrome in adult: Status: Acute Asessment and Plan: Continue us of nocturnal supplemental O2. (9) Discharge planning issues: Status: Acute Asessment and Plan: Home with HH PT/OT Discharge Plan Disposition Patient Disposition: Home W/Home Health Services Condition: Improving Discharge Details Reason For Visit: Acute CVA Admit Date/Time: 05/14/23 11:00 Admit Provider: Stanley Li Attending Provider: Stanley Li Primary Care Provider: [facility] Course Hospital Course: This is a 68-year-old woman with a history of coronary disease and prior stroke developed dizziness and imbalance on 05/12/2023.? She describes getting up that morning and feeling dizzy and fell backward on the bed.? Her son checked on her and she said she felt dizzy but she was well enough to go to the [employer].? By the end of [employer] she was again dizzy as they went back to the car.? On day of this admission (05/13/2023) she woke up feeling dizzy and sick to her stomach and complained of a headache.? Her son immediately drove her to [facility] for evaluation. In the emergency room she was reportedly quite dizzy.? She had an MRI of the head that showed a right cerebellar infarct and old bilateral occipital infa rcts.? An MRI showed diminished right vertebral artery, chest x-ray negative, neck MRA showed motion artifact but could not see the right vertebral artery.? She was given aspirin 325 mg, Plavix 75 mg, atorvastatin 80 mg.? See Diagnosis Home Meds and New Rx's Prescriptions: New Brilinta 90 mg Tablet 90 mg PO BID Qty: 60 0RF ondansetron 4 mg Tablet,Disintegrating 4 mg PO Q8H PRN PRN (Reason: nausea and vomiting) Qty: 30 0RF Continued (DME) pen needle, diabetic [BD Ultra-Fine Lexus Pen Needle] 32 gauge x 5/32 needle See Rx Instructions .ROUTE .MEDSUPPLY Qty: 50 Rx Instructions: As directed nitroglycerin 0.4 mg tablet, sublingual 0.4 mg sublingual Q5M PRN Rx Instructions: do not exceed 3 doses per episode insulin glargine [Basaglar KwikPen U-100 Insulin] 100 unit/mL (3 mL) insulin pen See Rx Instructions subcut DIRECTED Patient Comments: 65 units in morning Rx Instructions: subcut as directed; albuterol sulfate 0.63 mg/3 mL solution for nebulization 0.63 mg inhalation QID PRN (Reason: shortness of breath or wheezing) Qty: 90 3RF ipratropium bromide 0.02 % solution 2.5 ml inhalation Q4H PRN Qty: 75 3RF Patient Comments: no longer taking albuterol sulfate 2.5 mg /3 mL (0.083 %) solution for nebulization 2.5 mg continuous nebulization ONCE Qty: 3 0RF omeprazole 20 mg capsule,delayed release(DR/EC) 20 mg PO DAILY Patient Comments: not on med list magnesium oxide 400 mg (241.3 mg magnesium) tablet 400 mg PO DAILY atorvastatin 20 mg tablet 80 mg PO DAILY Patient Comments: Pt states she takes 100mg daily (DME) Oxygen Tank See Rx Instructions .ROUTE .MEDSUPPLY Qty: 1 0RF Rx Instructions: 3.5 LPM at night, 4LPM with exertion budesonide-formoterol [Symbicort] 160-4.5 mcg/actuation HFA aerosol inhaler 2 puff inhalation BID Qty: 10.2 12RF Spiriva Respimat 2.5 mcg/actuation mist 2 inh inhalation QAM Qty: 4 12RF Patient Comments: not on med list roflumilast 500 mcg tablet 500 mcg PO DAILY Qty: 90 12RF Rx Instructions: Start after the 250mcg dosage lorazepam 1 mg tablet 1 mg PO TID PRN (Reason: anxiety) Qty: 90 0RF aspirin 81 mg Tablet,Delayed Release (Dr/Ec) 81 mg PO DAILY docusate sodium 100 mg Capsule 100 mg PO DAILY calcium carbonate 550 mg Tablet,Chewable 1,000 mg PO TID Patient Comments: not on med list duloxetine 30 mg Capsule,Delayed Release(Dr/Ec) 30 mg PO DAILY levothyroxine 100 mcg tablet 100 mcg PO DAILY Patient Comments: TAKE ONE TABLET BY MOUTH EVERY DAY sertraline 25 mg tablet 50 mg PO DAILY Patient Comments: not on med list furosemide [Lasix] 20 mg tablet 20 mg PO DAILY Qty: 14 0RF Rx Instructions: start 03/10/23 spironolactone 50 mg tablet 50 mg PO DAILY Qty: 14 0RF Rx Instructions: start 03/09/23 albuterol sulfate [Ventolin HFA] 90 mcg/actuation HFA aerosol inhaler 2 puff inhalation QID PRN magnesium oxide 400 mg (241.3 mg magnesium) Tablet 400 mg PO DAILY Changed carvedilol 6.25 mg tablet 6.25 mg PO BID Qty: 60 0RF Patient Comments: TAKE ONE TABLET BY MOUTH TWICE A DAY Discontinued clopidogrel 75 mg tablet 75 mg PO DAILY Discharge Instructions Instructions: Ischemic Stroke (DC) Stand Alone Forms: Nursing Discharge Form Referrals: Jazmin Garcias [Primary Care Provider] - (Please call Thursday to make a follow up appointment for 1-2 weeks) Cheyenne Smith MD [ [facility] STAFF PHYSICIAN] - (Please call Thursday to make a follow up appointment for 4-6 weeks. F/U CVA) Activity:: Activity as Tolerated Equipment/Supplies:: No Equipment Needed Diet:: Resume usual home diet Discharge Orders Discharge Orders: Discharge Order (Routine); Ordered 05/16/23 Ordered By: Alexis Stoner Other Ambulatory Orders: Cardiac Event Recorder (Routine) Timeframe: 1 Month Facility: [facility] - Location: Respiratory Therapy Ordered By: Alexis Stoner DS: Summary Time Spent with Patient providing and/or coordinating discharge services: Greater than 30 minutes Status at Discharge Functional status at discharge: independent ambulation Overall status at discharge: patient is progressing back to baseline Mental Status: mental status grossly normal Speech and Movement: speech clear Mood: anxious mood Affect: labile affect Exam Narrative Exam Narrative: General: pleasant middle-aged female. Lying in bed. INitially anxious early in the AM d/t vertigenous symptoms; but later these symptoms were res olved. HEENT: sclera clear, MMM Heart: RRR Lungs: expiratory wheezing coming from upper airway Abdomen: soft, nontender, nondistended Extremities: no edema BLEs Psych Mental Status: mental status grossly normal Speech and Movement: speech clear Mood: anxious mood Affect: labile affect DS: Data Vitals/I&O Vitals and I&O: Vital Signs Temperature 36.7 C 05/16/23 10:58 Temperature Source Tympanic 05/16/23 10:58 Pulse 71 05/16/23 10:58 Pulse Rhythm Regular 05/16/23 03:00 Pulse 72 05/13/23 16:10 Respiratory Rate 18 05/16/23 09:17 Respiratory Effort Normal, Non-Labored 05/16/23 03:00 Respiratory Depth Normal 05/16/23 03:00 Respiratory Pattern Normal 05/16/23 03:00 Blood Pressure 139/82 05/16/23 10:58 Blood Pressure Mean 82 05/13/23 16:01 Blood Pressure Position Sitting 05/13/23 10:59 Pulse Oximetry 100 05/16/23 10:58 Oxygen Delivery Method Nasal Cannula 05/16/23 10:58 Oxygen Flow Rate 1 05/16/23 10:58 Pain Level 0 05/16/23 07:39 Intake & Output 05/15/23 05/16/23 05/16/23 23:59 11:59 23:59 Output Total 300 / 650 600 / 850 250 / 850 Balance -300 / -410 -600 / -850 -250 / -850 Weight 92.4 kg Output: Urine 300 / 650 600 / 850 250 / 850 Other: Urine Color Yellow Pale Yellow Yellow Urine Appearance Clear Clear Clear Comment mixed with stool Stool Size Small Moderate Stool Characteristics Liquid Liquid Brown Voiding Methods Bedside Commode Bedside Commode Bedside Commode Data Completed and Pending Labs on day of discharge: Labs from last 24 hours 05/16/23 06:06 WBC 9.31 RBC 4.13 Hgb 11.8 Hct 35.7 L MCV 86 MCH 28.6 MCHC 33.1 RDW 14.4 Plt Count 230 MPV 10.1 PFSH All Active Problems Occlusion of right vertebral artery (Acute) Carotid stenosis, right (Acute) Discharge planning issues (Acute) DVT prophylaxis (Acute) DM type 2 (diabetes mellitus, type 2) (Acute) Cerebellar infarct (Acute) Chronic hypoxemic respiratory failure (Chronic) Hypersomnia with sleep apnea (Chronic) Chronic tracheobronchitis (Chronic) Chronic ischemic heart disease (Chronic) Obstructive sleep apnea syndrome in adult (Acute) Medical History Abdominal pain Acute allergic mucoid otitis media Allergic asthma Anxiety ASCVD (arteriosclerotic cardiovascular disease) Back pain Chest pain Chronic bronchitis with emphysema Chronic kidney disease Constipation COPD (chronic obstructive pulmonary disease) COPD exacerbation Depression Disorder of hyperalimentation Disorder of trunk Diverticulitis of colon Dyspnea GERD (gastroesophageal reflux disease) GERD (gastroesophageal reflux disease) History of COVID-19 02/16/2021 Hyperlipidemia Hypersomnia Hypertension Hypothyroidism Idiopathic osteoarthritis Joint pain Morbid obesity Nicotine dependence, cigarettes, uncomplicated Non-compliance with treatment Pain in right knee Personal history of colonic polyps Right lower quadrant pain Snoring Spondylosis of lumbar region without myelopathy or radiculopathy Synovial cyst of popliteal space Tobacco abuse Tracheobronchitis Tubular adenoma of colon Urinary incontinence, mixed Vocal cord dysfunction following prolonged intubation 12/2022 Surgical History Appendectomy 1980 section x2 Cholecystectomy 04/23/2012 Colonoscopy - MAC (06/13/16) EGD - MAC (06/13/16) History of hemorrhoidectomy 1999 History of tubal ligation 1980 Tracheostomy status for prolonged intubation at [facility] 01/2023, removed 01/2023 Family History Mother Hypertension COPD (chronic obstructive pulmonary disease) Renal failure syndrome Father Hypertension COPD (chronic obstructive pulmonary disease) Coronary artery disease Social History Smoking/Tobacco Use Status: Former Tobacco Use Quit Date: 12/10/22 Tobacco: How many years used: 50 Smoking risk assessment performed?: Yes Alcohol Intake: never Drug use: Daily Substance use type: does not use Housing: house Communication Needs: Corrective Lenses Pets and animals: Yes (2 dogs, 1 cat) Do you feel safe at home: Yes Do you feel safe in your relationship?: Yes Time Spent with Patient Time Spent with Patient: 45-69 minutes Time was spent: preparing to see the patient(eg.review tests), obtaining and/or reviewing separately otained hiistory, indepentently interpreting results and counseling the patient
--- NOTE | 2023-05-16 13:28 | PDOC.HHF2F ---
Home Health Referral Home Health Orders Clinical synopsis of why skilled professionals are needed: Pt presented with vertigo and gait disturbance. Found to have a right cerebellar infarct. + occluded vertebral artery. Medical diagnosis necessitation home health referral: CVA Physical Therapist: Check all that apply Increase strength & endurance for safe mobility at home: Ordered Home safety evaluation and teaching/gait training including stair management (if applicable): Ordered Home Bound Status Assistance of another person (Describe assistance and medical necessity): Due to gait instability after cerebellar CVA as well as intermittent vertigo also d/t CVA. Describe why leaving home would require a considerable and taxing effort: Safety Concerns: describe (s/p CVA with gait instability and vertigo. ) Encounter Date and Reason: I certify that a FTF encounter for this patient was performed on May 16, 2023 and that such encounter was related to the primary reason the patient requires home health services. The encounter was conducted in the following manner: By me as the certifying physician, PORTABLE TRACK LINE MARKER, PA or By an inpatient physician, PORTABLE TRACK LINE MARKER or PA during an inpatient stay who communicated findings to me, Certification And Authentication I certify that I composed the above information based on my clinical judgment relating to this patient's medical condition and, if applicable, clinical findings communicated to me by the NPP or inpatient physician who performed the FTF encounter. Name of Provider that will be monitoring home health services: Alexis Stoner
--- NOTE | 2023-05-16 18:26 | CMDISCH_ITS ---
Date of service: 05/16/23 Time of Service: 18:28 LACE Index Scoring Tool Questions: Length of Stay (in days): 2 Was the patient admitted via the E.D.?: Yes Comorbidities: Cerebrovascular Disease, Diabetes w/o Complication and Congestive Heart Failure E.D. Visits: 1 Answers: Total Score: 11 Risk of Readmission: High Risk Care Management Discharge Plan Reason for Hospitalization: cerebellar infarct Discharge Plan: Negar returned home today with new orders for HH PT, OT, which were faxed to [facility]. She was transported via private vehicle by family. She will follow up with her PCP and discharge plan of care. CM will continue to follow. Patient/Family Education Needs: Review discharge instructions and limitations, discussion of self care needs including ask me three. Services Needed at Discharge: Home Health Care Services (HH PT, OT)
--- NOTE | 2023-05-19 11:24 | INDS_ITS ---
Date of service: 05/19/23 PT Notes Visit Reasons: Acute CVA Physical Therapy Inpatient Discharge Summary Date: 05/16/2023 Dates of service: 05/14/2023 through 05/16/2023 This is a clinical summary of care provided for the duration of dates listed above. No charge was made in the completion of this documentation. Referring Doctor: Stanley Li? PT Orders: PT CONSULT: Limited ability Precautions: Fall. Standard. Activity as tolerated. Patient Profile/Admitting Diagnosis:? Patient is a 68-year-old female patient who presented to the ED on 05/13/2023 due to dizziness and imbalance that caused him to fell backward onto her bed at home.? Patient is admitted to medsurg unit due to acute cerebellar infarct as seen on MRI,? DM Type II,? Chronic hypoxemic respiratory failure,? epigastric pain,? hypersomnia with sleep apnea,? chronic tracheobronchitis,? chroninc ische darwin heart disease,? and SARIAH. PMHX: All Active Problems?(Updated 05/13/23 @ 17:54 by Stanley Li MD) DM type 2 (diabetes mellitus, type 2) (Acute) Cerebellar infarct (Acute) Chronic hypoxemic respiratory failure (Chronic) Epigastric pain (Acute) Hypersomnia with sleep apnea (Acute) Chronic tracheobronchitis (Acute) Chronic ischemic heart disease (Chronic) Obstructive sleep apnea syndrome in adult (Acute) Medical History?(Updated 05/13/23 @ 17:54 by Stanley Li MD) Abdominal pain Acute allergic mucoid otitis media Allergic asthma Anxiety ASCVD (arteriosclerotic cardiovascular disease) Back pain Chest pain Chronic bronchitis with emphysema Chronic kidney disease Constipation COPD (chronic obstructive pulmonary disease) COPD exacerbation Depression Disorder of hyperalimentation Disorder of trunk Diverticulitis of colon Dyspnea GERD (gastroesophageal reflux disease) History of COVID-19 02/16/2021 Hyperlipidemia Hypersomnia Hypertension Hypothyroidism Idiopathic osteoarthritis Joint pain Morbid obesity Nicotine dependence, cigarettes, uncomplicated Non-compliance with treatment Pain in right knee Personal history of colonic polyps Right lower quadrant pain Snoring Spondylosis of lumbar region without myelopathy or radiculopathy Synovial cyst of popliteal space Tobacco abuse Tracheobronchitis Tubular adenoma of colon Urinary incontinence, mixed Vocal cord dysfunction following prolonged intubation 12/2022 Surgical History?(Updated 05/13/23 @ 17:53 by Stanley Li MD) Appendectomy 1980 section x2 Cholecystectomy 04/23/2012 Colonoscopy - MAC (06/13/16) EGD - MAC (06/13/16) History of hemorrhoidectomy 1999 History of tubal ligation 1980 Tracheostomy status for prolonged intubation at [facility] 01/2023, removed 01/2023 Social History/Home Situation: Lives in a private home with her son.? Uses a FWW occasionally. Equipment Owned/DME: FWW, SPC Subjective: NT. See most recent [employer]IDENT[employer] notes. Objective: NT. See most recent RESIDENTIAL [employer] BU[employer] DES[employer]ER notes. Mental Status: NT. See most recent RESIDENTIAL [employer]ILD[employer] DES[employer]ER notes. Pain: NT. See most recent RESIDENTIAL [employer] BUILD[employer] DES[employer]ER notes. Vital Signs: NT. See most recent [employer]IDENTIAL [employer] DES[employer] notes. ROM: Right Upper Extremity: ? Shoulder Flexion lacks the last 50% of AROM. Shoulder abduction lacks the last 50% of AROM. Elbow flexion WFL. Wrist flexion WFL. Functional opening and closing of hand WFL. Left Upper Extremity:? Shoulder Flexion lacks the last 25% of AROM. Shoulder abduction lacks the last 25% of AROM. Elbow flexion WFL. Wrist flexion WFL. Functional opening and closing of hand WFL. Right Lower Extremity: Hip flexion lacks the last 25% of AROM. Hip abduction lacks the last 25% of AROM. Knee flexion WFL. Ankle dorsiflexion to neutral only.? Ankle plantarflexion WFL. Left Lower Extremity: Hip flexion lacks the last 25% of AROM. Hip abduction lacks the last 25% of AROM. Knee flexion WFL. Ankle dorsiflexion to neutral only.? Ankle plantarflexion WFL. Strength: Right Upper Extremity: Shoulder flexors 3-/5. Shoulder abductors 3-/5. Elbow flexors 4-/5. Elbow extensors 4-/5. Director Of Training strong. Left Upper Extremity: Shoulder flexors 3-/5. Shoulder abductors 3-/5. Elbow flexors 4-/5. Elbow extensors 4-/5. Director Of Training strong. Right Lower Extremity: Hip flexors 3-/5. Hip abductors 4-/5. Knee flexors 4/5. Knee extensors 4-/5. Ankle dorsiflexors 3-/5. Ankle plantarflexors 4-/5. Left Lower Extremity:? Hip flexors 3-/5. Hip abductors 4-/5. Knee flexors 4/5. Knee extensors 4-/5. Ankle dorsiflexors 3-/5. Ankle plantarflexors 4-/5. Bed Mobility/Transfers: Supine to sit stand by assist Sit to supine stand by assist Sit to stand stand by assist with FWW Stand to sit stand by assist with FWW Gait: Instructed patient with level surface ambulation of 300' requiring stand by assist. Lluvia decreased. Step height decreased. Step length decreased.? No ataxia noted however observed some waddling.? Complained of shortness of breath but oxygen saturation is at 98% on RA.? Balance: Static Sitting: Good Dynamic Sitting: Good Static Standing: Fair Dynamic Standing: Fair NEURO: Rhomberg test: Positive Babinski- negative Clonus negative Tone in B UE-normotonic Tone in B LE-normotonic Pronator Drift-unable to test 4-Stage balance Test- Unable to maintain all four positions for 10 seconds Assessment: Strength symmetric except for pre-existing weak R shoulder (potentially needing repair).? Patient presents with clinical signs and symptoms consistent with current/admitting diagnoses that have resulted to mobility limitations, gait instability, generalized weakness, and overall ADL decline as demonstrated by the following impairment level findings: 1.? Decreased strength to B Ue/LE major muscle groups 2.? Impaired sitting/standing balance 3.? Impaired activity tolerance 4.? Limitation of joint range of motion in R shoulder (not CVA-related) 5.? High anxiety 6.? Severe nausea Impairments are contributing to the following functional limitations: 1.? Decline in bed mobility skills 2.? Decline in transfer skills 3.? Difficulty with ambulation without assistive device and physical assistance 4.? Increased completion time for mobility ADL performance 5.? Increased risk for falls 6.? Difficulty with managing steps alone safely Goals: Goals X1 week 1. Supine-Sit independent 2. Sit-Supine independent 3. Sit-Stand independent 4. Stand-Sit independent with FWW 5. Bed-Chair independent with FWW 6. Chair-Bed independent with FWW 7. Independent gait on level surface with use of FWW for at least 300 feet without report of pain nor dyspnea 9. Independent with home exercise program 10. Good static and dynamic standing balance/tolerance DISCHARGE RECOMMENDATIONS: [] ? Home with no services [] [X] ? Home with services.? Patient will benefit from home health PT services in order to progress mobility level using least restrictive assistive ambulatory device, assess home safety, identify additional equipment needs, and establish a functional maintenance program that will increase ability of patient to remain at home. [] ? Home with outpatient PT [] [] ? SNF for continued rehabilitation [] [] ? [facility] [] [] ? SNF versus LTC based on ability to participate and progress [] TREATMENT CODE/TIME: NC Thank you for the opportunity to participate in the care of this patient. Cristine Alcantara PT, DPT, CLT [facility] [place], [place]
== END 2023-05-16 14:38 | disposition home health service (06) | DRG 65 ==
LOC: ER 15:56 → MS 16:30
PROVIDERS: Internal Medicine; Admitting Provider Family Medicine; Emergency Provider Physician Assistant; PCP Nurse Practitioner Family; Visit Provider Family Medicine
DX: I63.211 Cerebral infarction due to unspecified occlusion or stenosis of right vertebral artery (principal); J96.11 Chronic respiratory failure with hypoxia; Z68.41 Body mass index [BMI] 40.0-44.9, adult; Z86.73 Personal history of transient ischemic attack (TIA), and cerebral infarction without residual deficits; I25.2 Old myocardial infarction; Z95.5 Presence of coronary angioplasty implant and graft; Z79.01 Long term (current) use of anticoagulants; Z79.82 Long term (current) use of aspirin; Z79.4 Long term (current) use of insulin; F17.210 Nicotine dependence, cigarettes, uncomplicated; N39.46 Mixed incontinence; G47.33 Obstructive sleep apnea (adult) (pediatric); M54.9 Dorsalgia, unspecified; K59.00 Constipation, unspecified; K57.30 Diverticulosis of large intestine without perforation or abscess without bleeding; K21.9 Gastro-esophageal reflux disease without esophagitis; I25.10 Atherosclerotic heart disease of native coronary artery without angina pectoris; F41.9 Anxiety disorder, unspecified; E78.5 Hyperlipidemia, unspecified; I12.9 Hypertensive chronic kidney disease with stage 1 through stage 4 chronic kidney disease, or unspecified chronic kidney disease; E03.9 Hypothyroidism, unspecified; E66.01 Morbid (severe) obesity due to excess calories; N18.9 Chronic kidney disease, unspecified; E11.22 Type 2 diabetes mellitus with diabetic chronic kidney disease; E11.65 Type 2 diabetes mellitus with hyperglycemia; R10.13 Epigastric pain; G47.14 Hypersomnia due to medical condition; J42 Unspecified chronic bronchitis; I65.21 Occlusion and stenosis of right carotid artery; Z66 Do not resuscitate; I48.0 Paroxysmal atrial fibrillation; R42 Dizziness and giddiness; Z99.81 Dependence on supplemental oxygen
CPT/HCPCS: 36415; 70544; 70547; 80048; 80053; 80061; 82805; 82962; 83690; 85027; 93005; 93306; 94640; 96360; 97110; 97116; 97162; 97530; 99223; 99285; 70551; 71046; 81003; 83036; 83735; 84439; 84443; 84484; 85025; 93010; 94664; 94760; 99233; 99239; G0378; J1644; J3490; J7613

== ENCOUNTER → 2023-05-14 08:24 | Outpatient (BNVA) | payer MEDICARE, MEDICAID, SELFPAY | PROVIDERS: PCP Nurse Practitioner Family; Referring Provider Nurse Practitioner Family; Visit Provider Psychiatry & Neurology Neurology ==

== ENCOUNTER 2023-06-04 11:32 | Outpatient (CLI) | payer MEDICARE, MEDICAID, SELFPAY | END 2023-06-04 11:33 | disposition home or self-care (01) | LOC: CARDOPNVT 11:32 | PROVIDERS: PCP Nurse Practitioner Family; Visit Provider Family Medicine | DX: I63.9 Cerebral infarction, unspecified (principal) | CPT/HCPCS: 93270 ==

== ENCOUNTER 2023-06-12 12:38 | Emergency (ER) | payer MEDICARE, MEDICAID, SELFPAY ==
[2023-06-12 12:46] VITALS: BP 129/74; PULSE 72; RESP 18; TEMP 36.8; O2SAT 100
--- NOTE | 2023-06-12 14:00 | RT.EKG_ITS ---
APPROVED REPORT Exam: Resting ECG Reason for Exam: shortness of breath Patient Location: E HR:70 bpm ECG Measurements Heart Rate 70 AXIS MN 148 P 55 QRSd 103 QRS -10 QT 398 T 21 QTc 431 Conclusion Sinus rhythm...normal P axis, V-rate 60- 99 Normal sinus rhythm at a rate of 70 with interventricular conduction delay. Left axis deviation no s igns of LVH based on voltage criteria in aVL. MN and QTc within normal limits. T wave inversion in lead III slightly more pronounced compared to prior. Prior dated last month. No ST segment abnormal ities. No acute injury pattern.
[2023-06-12 14:03] LABS: COVID-19 PCR Negative (Negative); Influenza A PCR Negative (Negative); Influenza B PCR Negative (Negative); RSV PCR Negative (Negative)
[2023-06-12 14:04] LABS: Abs Immature Grans 0.04 10^3/uL (0.0-0.06); Absolute Basophil Count 0.08 10^3/uL (0.0-0.2); Absolute Eosinophil Count 0.16 10^3/uL (0.0-0.7); Absolute Lymphocyte Count 3.26 10^3/uL (1.2-3.4); Absolute Monocyte Count 0.55 10^3/uL (0.1-0.8); Absolute Neutrophil Count 4.47 10^3/uL (1.2-6.7); Basophils % 0.9; Eosinophils % 1.9; HGB 10.8 g/dL (11.2-15.7); Immature Grans % 0.5; Lymphocytes % 38.1; MCH 29.1 pg (27.0-33.0); MCHC 32.7 % (32.0-36.0); MCV 89 fL (80-95); MPV 9.1 fL (8.0-11.0); Monocytes % 6.4; Neutrophils % 52.2; Platelet Count 310 10^3/uL (130-400); RBC 3.71 10^6/uL (3.93-5.22); RDW 14.3 % (11.7-14.6); WBC 8.56 10^3/uL (4.4-10.8)
--- NOTE | 2023-06-12 14:04 | ED.GENADUL_ITS ---
Discharge Plan Disposition Patient Disposition: Home Discharge Details Clinical Impression: COPD exacerbation, Viral illness Primary Care Provider: Jazmin Garcias ED Provider: Harry Mayes Home Meds and New Rx's Prescriptions: New prednisone 20 mg tablet 40 mg PO DAILY Qty: 8 0RF Continued (DME) pen needle, diabetic [BD Ultra-Fine Lexus Pen Needle] 32 gauge x 5/32 needle See Rx Instructions .ROUTE .MEDSUPPLY Qty: 50 Rx Instructions: As directed nitroglycerin 0.4 mg tablet, sublingual 0.4 mg sublingual Q5M PRN Rx Instructions: do not exceed 3 doses per episode insulin glargine [Basaglar KwikPen U-100 Insulin] 100 unit/mL (3 mL) insulin pen See Rx Instructions subcut DIRECTED Patient Comments: 65 units in morning Rx Instructions: subcut as directed; albuterol sulfate 0.63 mg/3 mL solution for nebulization 0.63 mg inhalation QID PRN (Reason: shortness of breath or wheezing) Qty: 90 3RF albuterol sulfate 2.5 mg /3 mL (0.083 %) solution for nebulization 2.5 mg continuous nebulization ONCE Qty: 3 0RF magnesium oxide 400 mg (241.3 mg magnesium) tablet 400 mg PO DAILY (DME) Oxygen Tank See Rx Instructions .ROUTE .MEDSUPPLY Qty: 1 0RF Rx Instructions: 3.5 LPM at night, 4LPM with exertion budesonide-formoterol [Symbicort] 160-4.5 mcg/actuation HFA aerosol inhaler 2 puff inhalation BID Qty: 10.2 12RF Spiriva Respimat 2.5 mcg/actuation mist 2 inh inhalation QAM Qty: 4 12RF Patient Comments: not on med list roflumilast 500 mcg tablet 500 mcg PO DAILY Qty: 90 12RF Rx Instructions: Start after the 250mcg dosage lorazepam 1 mg tablet 1 mg PO TID PRN (Reason: anxiety) Qty: 90 0RF aspirin 81 mg Tablet,Delayed Release (Dr/Ec) 81 mg PO DAILY docusate sodium 100 mg Capsule 100 mg PO DAILY duloxetine 30 mg Capsule,Delayed Release(Dr/Ec) 30 mg PO DAILY levothyroxine 100 mcg tablet 100 mcg PO DAILY Patient Comments: TAKE ONE TABLET BY MOUTH EVERY DAY furosemide [Lasix] 20 mg tablet 20 mg PO DAILY Qty: 14 0RF Rx Instructions: start 03/10/23 spironolactone 50 mg tablet 50 mg PO DAILY Qty: 14 0RF Rx Instructions: start 03/09/23 albuterol sulfate [Ventolin HFA] 90 mcg/actuation HFA aerosol inhaler 2 puff inhalation QID PRN magnesium oxide 400 mg (241.3 mg magnesium) Tablet 400 mg PO DAILY Brilinta 90 mg Tablet 90 mg PO BID Qty: 60 0RF ondansetron 4 mg Tablet,Disintegrating 4 mg PO Q8H PRN PRN (Reason: nausea and vomiting) Qty: 30 0RF carvedilol 6.25 mg tablet 6.25 mg PO BID Qty: 60 0RF Patient Comments: TAKE ONE TABLET BY MOUTH TWICE A DAY scopolamine base [Transderm-Scop] 1 mg over 3 days patch 3 day 1 patch transdermal Q3D Qty: 4 0RF Changed atorvastatin 20 mg tablet 100 mg PO DAILY Qty: 0 0RF Patient Comments: Pt states she takes 100mg daily Discontinued ipratropium bromide 0.02 % solution 2.5 ml inhalation Q4H PRN Qty: 75 3RF Patient Comments: no longer taking omeprazole 20 mg capsule,delayed release(DR/EC) 20 mg PO DAILY Patient Comments: not on med list calcium carbonate 550 mg Tablet,Chewable 1,000 mg PO TID Patient Comments: not on med list sertraline 25 mg tablet 50 mg PO DAILY Patient Comments: not on med list Discharge Instructions Instructions: COPD (Chronic Obstructive Pulmonary Disease) (ED), Viral Syndrome (ED) Additional Instructions: Please start your antibiotic and steroid tomorrow as you were given your first doses in the emergency department. Please continue to monitor symptoms and return immediately for any new or significant worsening of symptoms otherwise follow-up with primary care provider early next week for reassessment especially if not improving. Referrals: Jazmin Garcias [Primary Care Provider] - 5 days Discharge Data Discharge Date/Time-TO BE ENTERED AT DEPARTURE: 06/12/23 16:21 Medical Decision Making Patient presenting to the emergency department for chief complaint of shortness of breath, cough, chest tightness. Patient reports that this started a week ago with some nasal congestion and sore throat along with the presenting symptoms. Patient denies any fever chills, syncope, swelling to extremities. Denies cardiac chest discomfort. Physical exam shows dry forced cough, clear may be slightly diminished lower lung sounds in the bases but no crackles or otherwise focal findings noted, normal cardiac exam, normal upper respiratory exam. We will plan on checking FLUVID, labs, and chest x-ray. While I doubt ACS or CHF exacerbation I will add on EKG and troponin along with BNP but I do not feel that patient's symptoms are clinically consistent with these diagnoses. Pending results will give albuterol Please see physician interpretation for full interpretation of EKG but upon my review patient is in sinus rhythm with no acute ischemic findings to suggest STEMI or emergent cardiac dysrhythmia at this time. Reviewed patient's labs and patient is anemic but this is similar to anemia noted in the past, sodium slightly low chloride slightly no BUN slightly elevated 25, glucose 160. Negative nondetected initial troponin, BNP is 1111 but of note this is lower than patient has had on the past 3 times we have checked her DNP. Chest x-ray was reviewed and radiologist interpretation shows no acute findings. Patient reassessed and did state moderate improvement after the albuterol. Given otherwise negative work-up. I do feel the patient is appropriate for outpatient management. Patient encouraged to continue use of albuterol, patient was placed on azithromycin after discussion with patient that this is more of an intolerance compared to a actual allergy. Patient also placed on prednisone for COPD exacerbation. After discussion of diagnosis and plan of care patient has no further needs, questions, or concerns and states clear understanding to return to the emergency department for any worsening symptoms. This documentation was generated using [employer]. dictation system, please disregard any oddities of phrase or misspellings. Imaging Data Radiologic Study: Imaging: X-Ray Radiologist's impression: Exam(s) XR CHEST 2V PA LATERAL EXAM: XR CHEST 2V PA LATERAL CLINICAL HISTORY: cough, sob TECHNIQUE: 2D digital imaging was performed. COMPARISON: CR XR CHEST 2V PA LATERAL from 05/13/2023 FINDINGS: Exam limited by suboptimal pulmonary inflation HEART: Normal size. Aorta: Not dilated. PULMONARY VASCULATURE: Normal. LUNGS: Clear. PLEURAL SPACE: No pleural effusion or pneumothorax. BONE:Degenerative changes in the spine and shoulders. IMPRESSION: No acute abnormalit Lab Data Lab results reviewed: Yes I reviewed the patient's lab results. HPI General Mode of arrival: ambulatory . Date/Time Provider Initiated Documentation: 06/12/23 13:02 . Limitations to Documentation: no limitations . Information obtained by: patient and RN notes reviewed . History of Present Illness 68 year old F presents to the emergency department with the chief complaint of cough shortness of breath, described as moderate, Quality is described as other (Pressure), and is localized to the chest. Patient reports no radiation. Patient started experiencing this week(s) and it has been constant. No relieving factors improve symptom(s), No exacerbating factors reported . Patient notes malaise; denies fever/chills. Patient did receive the following treatments prior to arrival, none Related Data Home Medications Medication Instructions Recorded Confirmed nitroglycerin 0.4 mg sublingual 0.4 mg sublingual Q5M PRN 05/27/21 06/12/23 tablet pen needle, diabetic 32 gauge x #50 ea 05/27/21 06/12/23 (BD Ultra-Fine Lexus Pen Needle) insulin glargine 100 unit/mL (3 See Rx Instructions subcut 02/17/22 06/12/23 mL) subcutaneous pen (Basaglar DIRECTED KwikPen U-100 Insulin) Oxygen #1 ea 10/10/22 06/12/23 albuterol sulfate 0.63 mg/3 mL 0.63 mg (3 mL) inhalation QID PRN 10/13/22 06/12/23 solution for nebulization shortness of breath or wheezing #90 mL budesonide-formoterol HFA 160 2 puff inhalation BID #10.2 grams 10/20/22 06/12/23 mcg-4.5 mcg/actuation aerosol inhaler (Symbicort) tiotropium bromide 2.5 2 inh inhalation QAM #4 grams 10/20/22 06/12/23 mcg/actuation mist for inhalation (Spiriva Respimat) roflumilast 500 mcg tablet 500 mcg PO DAILY #90 tabs 03/03/23 06/12/23 aspirin 81 mg tablet,delayed 81 mg PO DAILY 03/09/23 06/12/23 release docusate sodium 100 mg capsule 100 mg PO DAILY 03/09/23 06/12/23 duloxetine 30 mg capsule,delayed 30 mg PO DAILY 03/09/23 06/12/23 release furosemide 20 mg tablet (Lasix) 20 mg PO DAILY #14 tabs 03/09/23 06/12/23 levothyroxine 100 mcg tablet 100 mcg PO DAILY 03/09/23 06/12/23 spironolactone 50 mg tablet 50 mg PO DAILY #14 tabs 03/09/23 06/12/23 magnesium oxide 400 mg (241.3 mg 400 mg PO DAILY 03/25/23 06/12/23 magnesium) tablet lorazepam 1 mg tablet 1 mg PO TID PRN anxiety #90 tabs 05/04/23 06/12/23 albuterol sulfate 90 mcg/actuation 2 puff inhalation QID PRN 05/13/23 06/12/23 aerosol inhaler (Ventolin HFA) magnesium oxide 400 mg (241.3 mg 400 mg PO DAILY 05/13/23 06/12/23 magnesium) tablet carvedilol 6.25 mg tablet 6.25 mg PO BID #60 tabs 05/15/23 06/12/23 ondansetron 4 mg disintegrating 4 mg PO Q8H PRN PRN nausea and 05/15/23 06/12/23 tablet vomiting #30 tabs ticagrelor 90 mg tablet (Brilinta) 90 mg PO BID #60 tabs 05/15/23 06/12/23 scopolamine base 1 mg over 3 days 1 patch transdermal Q3D #4 ea 05/16/23 3 transdermal patch (Transderm-Scop) atorvastatin 20 mg tablet 100 mg PO DAILY #0 tab-caps 06/12/23 06/12/23 prednisone 20 mg tablet 40 mg PO DAILY #8 tabs 06/12/23 Previous Rx's Medication Instructions Recorded Oxygen #1 ea 10/10/22 albuterol sulfate 0.63 mg/3 mL 0.63 mg (3 mL) inhalation QID PRN 10/13/22 solution for nebulization shortness of breath or wheezing #90 mL budesonide-formoterol HFA 160 2 puff inhalation BID #10.2 grams 10/20/22 mcg-4.5 mcg/actuation aerosol inhaler (Symbicort) tiotropium bromide 2.5 2 inh inhalation QAM #4 grams 10/20/22 mcg/actuation mist for inhalation (Spiriva Respimat) roflumilast 500 mcg tablet 500 mcg PO DAILY #90 tabs 03/03/23 furosemide 20 mg tablet (Lasix) 20 mg PO DAILY #14 tabs 03/09/23 spironolactone 50 mg tablet 50 mg PO DAILY #14 tabs 03/09/23 lorazepam 1 mg tablet 1 mg PO TID PRN anxiety #90 tabs 05/04/23 carvedilol 6.25 mg tablet 6.25 mg PO BID #60 tabs 05/15/23 ondansetron 4 mg disintegrating 4 mg PO Q8H PRN PRN nausea and 05/15/23 tablet vomiting #30 tabs ticagrelor 90 mg tablet (Brilinta) 90 mg PO BID #60 tabs 05/15/23 scopolamine base 1 mg over 3 days 1 patch transdermal Q3D #4 ea 05/16/23 transdermal patch (Transderm-Scop) atorvastatin 20 mg tablet 100 mg PO DAILY #0 tab-caps 06/12/23 prednisone 20 mg tablet 40 mg PO DAILY #8 tabs 06/12/23 Allergies Allergy/AdvReac Type Severity Reaction Status Date / Time cephalexin monohydrate Allergy Severe Tongue Unverified 06/12/23 13:06 [From Keflex] swelling, difficult to breath Macrolide Antibiotics Allergy Severe facial Verified 06/12/23 13:06 swelling Penicillins Allergy Severe Swelling, Unverified 06/12/23 13:06 throat closes up azithromycin Allergy Intermediate GI upset, Unverified 06/12/23 13:06 itching codeine Allergy Intermediate Skin Rash, Unverified 06/12/23 13:06 itching Latex, Natural Rubber AdvReac Severe Blister Unverified 06/12/23 13:06 General Stated Complaint: SOB POLI: 3 Review of Systems Constitutional Constitutional: Denies chills, Reports fatigue, Denies fever(s) and Reports malaise ENT Ears, Nose, Mouth, and Throat: Reports nasal congestion and Reports sore throat Cardiovascular Cardiovascular: Reports chest pain, Denies syncope, Denies edema, Denies claudication, Denies leg edema, Reports dyspnea and Reports dyspnea on exertion Respiratory Respiratory: Reports cough, Reports dyspnea, Reports dyspnea on exertion and Reports wheezing Gastrointestinal Gastrointestinal: Denies abdominal pain, Denies diarrhea, Denies nausea and Denies vomiting Integumentary/Breasts Skin/Breast: Denies rash Neurologic Neurologic: Denies syncope Endocrine Endocrine: Reports fatigue Allergic/Immunologic Allergic/Immunologic: Reports wheezing PFSH All Active Problems (Updated 06/12/23 @ 15:44 by Harry Mayes NP) COPD exacerbation (Acute) Viral illness (Acute) Occlusion of right vertebral artery (Acute) Carotid stenosis, right (Acute) DM type 2 (diabetes mellitus, type 2) (Acute) Cerebellar infarct (Acute) Chronic hypoxemic respiratory failure (Chronic) Hypersomnia with sleep apnea (Chronic) Chronic tracheobronchitis (Chronic) Chronic ischemic heart disease (Chronic) Obstructive sleep apnea syndrome in adult (Acute) Medical History Abdominal pain Acute allergic mucoid otitis media Allergic asthma Anxiety ASCVD (arteriosclerotic cardiovascular disease) Back pain Chest pain Chronic bronchitis with emphysema Chronic kidney disease Constipation COPD (chronic obstructive pulmonary disease) COPD exacerbation Depression Disorder of hyperalimentation Disorder of trunk Diverticulitis of colon Dyspnea GERD (gastroesophageal reflux disease) GERD (gastroesophageal reflux disease) History of COVID-19 02/16/2021 Hyperlipidemia Hypersomnia Hypertension Hypothyroidism Idiopathic osteoarthritis Joint pain Morbid obesity Nicotine dependence, cigarettes, uncomplicated Non-compliance with treatment Pain in right knee Personal history of colonic polyps Right lower quadrant pain Snoring Spondylosis of lumbar region without myelopathy or radiculopathy Synovial cyst of popliteal space Tobacco abuse Tracheobronchitis Tubular adenoma of colon Urinary incontinence, mixed Vocal cord dysfunction following prolonged intubation 12/2022 Surgical History Appendectomy 1981 section x2 Cholecystectomy 04/23/2012 Colonoscopy - MAC (06/13/16) EGD - MAC (06/13/16) History of hemorrhoidectomy 1999 History of tubal ligation 1981 Tracheostomy status for prolonged intubation at [facility] 01/2023, removed 01/2023 Family History Mother Hypertension COPD (chronic obstructive pulmonary disease) Renal failure syndrome Father Hypertension COPD (chronic obstructive pulmonary disease) Coronary artery disease Social History Smoking/Tobacco Use Status: Former Tobacco Use Quit Date: 12/10/22 Tobacco: How many years used: 50 Smoking risk assessment performed?: Yes Alcohol Intake: never Drug use: Daily Substance use type: does not use Housing: house Communication Needs: Corrective Lenses Pets and animals: Yes (2 dogs, 1 cat) Do you feel safe at home: Yes Do you feel safe in your relationship?: Yes Exam Const General: cooperative, comfortable and no acute distress Orientation: alert and awake [facility] Head: normal to inspection, normocephalic and atraumatic Mouth: oral mucosae normal, no drooling, no muffled voice and no trismus Throat: posterior oropharynx normal Neck Neck: normal visual inspection, full ROM, no meningeal signs, trachea midline and supple Resp Effort & Inspection: normal respiratory effort, able to speak in complete sentences and cough Quality of cough: other (dry forced ) Auscultation: clear to auscultation bilaterally Cardio Rate: regular rate Rhythm: regular rhythm Heart Sounds: S1 normal, S2 normal and no murmurs Skin General skin exam: no rashes or lesions noted and dry skin (warm) Neuro General: patient alert, patient awake, patient oriented x3, gait normal and moves all extremities Cognition: normal cognition Speech: speech normal Course Vital Signs Vital signs: Vital Signs Temperature 36.8 C 06/12/23 12:46 Pulse 72 06/12/23 12:46 Respiratory Rate 18 06/12/23 12:46 Blood Pressure 129/74 06/12/23 12:46 Pulse Oximetry 100 06/12/23 12:46 Temperature 36.8 C 06/12/23 12:46 Temperature Source Skin 06/12/23 12:46 Pulse 72 06/12/23 12:46 Respiratory Rate 18 06/12/23 12:46 Respiratory Effort Short of Breath 06/12/23 12:57 Respiratory Depth Normal 06/12/23 12:57 Respiratory Pattern Tachypnea 06/12/23 12:57 Blood Pressure 129/74 06/12/23 12:46 Blood Pressure Position Sitting 06/12/23 12:46 Pulse Oximetry 100 06/12/23 12:46 Oxygen Delivery Method Room Air 06/12/23 12:46 Oxygen Flow Rate 0 06/12/23 12:46 Pain Level 6 06/12/23 12:46
[2023-06-12 14:06] LABS: Source Nasopharynx
--- NOTE | 2023-06-12 14:25 | DI.RAD_ITS ---
Exam(s) XR CHEST 2V PA LATERAL EXAM: XR CHEST 2V PA LATERAL CLINICAL HISTORY: cough, sob TECHNIQUE: 2D digital imaging was performed. COMPARISON: CR XR CHEST 2V PA LATERAL from 05/13/2023 FINDINGS: Exam limited by suboptimal pulmonary inflation HEART: Normal size. Aorta: Not dilated. PULMONARY VASCULATURE: Normal. LUNGS: Clear. PLEURAL SPACE: No pleural effusion or pneumothorax. BONE:Degenerative changes in the spine and shoulders. IMPRESSION: No acute abnormality. DATA REPOSITORY: RADIATION DOSE DELIVERED:
[2023-06-12 14:29] LABS: ALT 15 U/L (14-59); AST 8 U/L (15-37); Albumin 3.8 g/dL (3.4-5.0); Alkaline Phosphatase 83 U/L (46-116); Anion Gap 7.2 mmol/L (3-11); BUN 25 mg/dL (7-18); Bilirubin, Total 0.3 mg/dL (0.2-1.0); CO2 30.8 mmol/L (21.0-32.0); Chloride 97 mmol/L (98-107); Estimated GFR 61.75 (mL/min/1.73m2); Glucose 160 mg/dL (74-106); NT-proBNP 1011 pg/mL (<300); Potassium 3.8 mmol/L (3.5-5.1); Sodium 135 mmol/L (136-145); Total Protein 7.8 g/dL (6.4-8.2); Troponin I < 50 ng/L (<or=60)
[2023-06-12 14:32] VITALS: RESP 4
[2023-06-12] MEDS: Albuterol 2.5 MG/3 ML INH SOLN VIAL UPD (14:32)
[2023-06-12 14:35] LABS: Calcium 9.6 mg/dL (8.5-10.1)
[2023-06-12] MEDS: predniSONE 20 MG TAB 40 MG PO (16:13)
[2023-06-12] MEDS: Azithromycin 250 MG TAB 500 MG PO (16:13)
== END 2023-06-12 16:21 | disposition home or self-care (01) ==
PROVIDERS: Emergency Provider Nurse Practitioner Family; PCP Nurse Practitioner Family
DX: R05.9 Cough, unspecified (principal); R06.02 Shortness of breath; J44.1 Chronic obstructive pulmonary disease with (acute) exacerbation; B34.9 Viral infection, unspecified
CPT/HCPCS: 36415; 80053; 87637; 93005; 94640; 99285; 71046; 83735; 83880; 84484; 85025; 93010; 99284; J7512; J7613

== ENCOUNTER → 2023-07-01 13:57 | Outpatient (BNVA) | payer MEDICARE, MEDICAID, SELFPAY | PROVIDERS: PCP Nurse Practitioner Family; Referring Provider Nurse Practitioner Family; Visit Provider Psychiatry & Neurology Neurology | DX: I69.398 Other sequelae of cerebral infarction (principal); R42 Dizziness and giddiness; R26.89 Other abnormalities of gait and mobility; I65.21 Occlusion and stenosis of right carotid artery; I65.01 Occlusion and stenosis of right vertebral artery; E11.9 Type 2 diabetes mellitus without complications | CPT/HCPCS: 99215 ==

== ENCOUNTER 2023-07-09 08:32 | Outpatient (CLI) | payer MEDICARE, MEDICAID, SELFPAY ==
--- NOTE | 2023-07-09 08:37 | W.CARDEVENT ---
Date of service: 07/09/23 Time of Service: 08:37 Cardiac Event Recorder Referring Provider:: Jazmin Garcias Indications:: Stroke Cardiac Event Note: This is a cardiac event monitor aborted because of stroke. Patient was monitored for a total of 21 days 20 hours Rhythm throughout was sinus. Average heart rate was 82. Minimum was 60. Maximum was 112 No significant atrial or ventricular dysrhythmias were recorded. There was no atrial fibrillation, no high-grade AV block, no pauses greater than 3 seconds There were no apparent patient symptoms
== END 2023-07-09 08:33 | disposition home or self-care (01) ==
LOC: CARDOPNVT 08:32
PROVIDERS: PCP Nurse Practitioner Family; Visit Provider Internal Medicine Cardiovascular Disease
DX: I63.9 Cerebral infarction, unspecified (principal)
CPT/HCPCS: 93272

== ENCOUNTER → 2023-07-28 02:50 | Outpatient (CLI) | payer MEDICARE, MEDICAID, SELFPAY ==
--- NOTE | 2023-07-28 07:30 | DI.CT_ITS ---
Exam(s) CT NECK CHEST W EXAM: CT NECK CHEST W CLINICAL HISTORY: h/o trach 01/29, now insp stridor, trach stenosis?,R06.1 TECHNIQUE: Imaging Protocol: Axial computed tomography images with coronal and sagittal reformatted images were created and reviewed CONTRAST MATERIAL: Intravenous: Contrast Contrast volume:structured data in ml mL. COMPARISON: No exams were available for comparison FINDINGS: Orbits and orbital soft tissues: Within normal limits. Visualized paranasal sinuses: Within normal limits. Nasopharynx: Within normal limits. Oropharynx: Within normal limits. Hypopharynx: Within normal limits. Larynx: Within normal limits. Retropharyngeal space: Within normal limits. Parotids/submandibular: Within normal limits. Thyroid gland: Within normal limits. Lymphadenopathy: There is scattered lymph nodes seen along the level one to level three all measurin g less than 8 mm in short axis diameter which are physiologic in nature. Trachea: There is minimal narrowing of the transverse diameter of the trachea at the level of the thy roid gland to 1.1 cm. This compares to 1.3 cm proximal and distal to this area. There is no wall th ickening or abnormal fluid collections surrounding the trachea. Bones: Within normal limits for the patient's age. Carotids/Jugular: Atherosclerosis. This is most marked in the left distal common carotid artery, ca rotid bulb and proximal internal carotid artery. Soft tissues: Within normal limits. Tracheobronchial tree: Patent where visualized. Pulmonary parenchyma: No consolidation or dominant measurable mass. No architectural distortion. Mediastinum and Sylvia: No dominant adenopathy or fluid collection. The esophagus is unremarkable. Thyroid gland: Unremarkable. Pleura: No effusion or pneumothorax. Heart: The heart is not dilated. Three vessel coronary artery calcifications are present. No pericar dial effusion. Aorta: Thoracic aorta non-dilated. Atherosclerosis. Pulmonary arteries: The pulmonary arteries are not adequately opacified for pulmonary embolic evaluat ion. Upper abdomen: Status post cholecystectomy. Lymph nodes: Within normal limits. Bones: Within normal limits for the patient's age. Degenerative changes are seen in the shoulders bi laterally, right greater than left. Soft tissues: Unremarkable. IMPRESSION: 1. There is no significant tracheal narrowing present. 2. Coronary artery calcifications and atherosclerosis. RADIATION DOSE DELIVERED: 1,084.82mGy.cm Total DLP DATA REPOSITORY: All CT scans at this facility are submitted to the National Radiology Data Registry (NRDR) Dose Index Registry (DIR) with the [employer] (ACR). RADIATION OPTIMIZATION: All CT scans at this facility use at least one of these dose optimization te chniques: automated exposure control; mA and/or kV adjustment per patient size (includes targeted exa ms where dose is matched to clinical indication); or iterative reconstruction.
[2023-07-28] MEDS: Normal Saline Flush 10 ML SYR IVP (10:00)
[2023-07-28] MEDS: Normal Saline - Diluent 50 ML VIAL IJ (10:00)
[2023-07-28] MEDS: Omnipaque 350 MG/ML 500 ML BTL-Imaging package IJ (10:01)
== END ==
PROVIDERS: PCP Nurse Practitioner Family; Visit Provider Student in an Organized Health Care Education/Training Program
DX: I25.84 Coronary atherosclerosis due to calcified coronary lesion; I65.21 Occlusion and stenosis of right carotid artery
CPT/HCPCS: 70491; 71260

== ENCOUNTER → 2023-09-04 08:59 | Outpatient (BNVA) | payer MEDICARE, MEDICAID, SELFPAY | PROVIDERS: PCP Nurse Practitioner Family; Referring Provider Nurse Practitioner Family; Visit Provider Student in an Organized Health Care Education/Training Program | DX: R06.00 Dyspnea, unspecified (principal); G47.33 Obstructive sleep apnea (adult) (pediatric); R06.1 Stridor; J44.9 Chronic obstructive pulmonary disease, unspecified | CPT/HCPCS: 94618; 99215 ==

== ENCOUNTER 2023-09-04 10:33 | Emergency (ER) | payer MEDICARE, MEDICAID, SELFPAY ==
[2023-09-04] VITALS (35 sets, daily range): BP systolic 106–160; BP diastolic 37–89; PULSE 88–99; RESP 14–30; TEMP 36.8; O2SAT 93–100
--- NOTE | 2023-09-04 10:30 | RT.EKG_ITS ---
APPROVED REPORT Exam: Resting ECG Reason for Exam: CHEST PAIN Patient Location: E HR:91 bpm ECG Measurements Heart Rate 91 AXIS IN 141 P 65 QRSd 95 QRS 11 QT 382 T 50 QTc 472 Conclusion Sinus rhythm...normal P axis, V-rate 60- 99 ECG showing narrow complex normal sinus rhythm at a rate of 91. Normal axis. Intervals within clive l limits. No ST segment abnormalities. No T wave inversions. Significant artifact in V6 interferes with interpretation. Appears similar to prior dated June 2023. Also appears similar to prior in [facility] EMR dated August 28, 2023. No acute injury pattern.
--- NOTE | 2023-09-04 10:34 | W.ED.GENAD ---
Discharge Plan Disposition Patient Disposition: Transfer-Acute Inpatient Care Specific Acute Inpt Facility: [facility] Discharge Details Clinical Impression: Myocardial injury, Thrombocytopenia, Normocytic anemia Primary Care Provider: Jazmin Garcias ED Provider: Giovanni White [place] Meds and New Rx's Prescriptions: No Action (DME) pen needle, diabetic [BD Ultra-Fine Lexus Pen Needle] 32 gauge x 5/32 needle See Rx Instructions .ROUTE .MEDSUPPLY Qty: 50 Rx Instructions: As directed nitroglycerin 0.4 mg tablet, sublingual 0.4 mg sublingual Q5M PRN Rx Instructions: do not exceed 3 doses per episode insulin glargine [Basaglar KwikPen U-100 Insulin] 100 unit/mL (3 mL) insulin pen See Rx Instructions subcut DIRECTED Patient Comments: 65 units in morning Rx Instructions: subcut as directed; metoprolol succinate 50 mg tablet extended release 24 hr 50 mg PO DAILY omeprazole 40 mg capsule,delayed release(DR/EC) 40 mg PO DAILY senna 8.6 mg capsule 17.2 mg PO DAILY buspirone 5 mg tablet 5 mg PO TID ferrous fumarate [Ferrocite] 324 mg (106 mg iron) tablet 324 mg PO TID Patient Comments: Pt taking bid with meals roflumilast 500 mcg tablet 500 mcg PO DAILY Qty: 90 12RF Rx Instructions: Start after the 250mcg dosage albuterol sulfate 2.5 mg /3 mL (0.083 %) solution for nebulization 2.5 mg continuous nebulization ONCE Qty: 3 0RF magnesium oxide 400 mg (241.3 mg magnesium) tablet 400 mg PO DAILY lorazepam 1 mg tablet 1 mg PO TID PRN Patient Comments: TAKE ONE TABLET BY MOUTH THREE TIMES A DAY NEEDED albuterol sulfate 2.5 mg /3 mL (0.083 %) solution for nebulization 2.5 mg inhalation Q4H PRN Patient Comments: INHALE ONE VIAL VIA NEBULIZER EVERY 4 HOURS NEEDED (DME) Oxygen Tank See Rx Instructions .ROUTE .MEDSUPPLY Qty: 1 0RF Rx Instructions: 3.5 LPM at night, 4LPM with exertion budesonide-formoterol [Symbicort] 160-4.5 mcg/actuation HFA aerosol inhaler 2 puff inhalation BID Qty: 10.2 12RF Spiriva Respimat 2.5 mcg/actuation mist 2 inh inhalation QAM Qty: 4 12RF Patient Comments: not on med list ipratropium-albuterol 0.5 mg-3 mg(2.5 mg base)/3 mL solution for nebulization 3 ml inhalation Q4H PRN (Reason: wheezing) Qty: 540 12RF aspirin 81 mg Tablet,Delayed Release (Dr/Ec) 81 mg PO DAILY docusate sodium 100 mg Capsule 100 mg PO DAILY duloxetine 30 mg Capsule,Delayed Release(Dr/Ec) 30 mg PO DAILY levothyroxine 100 mcg tablet 100 mcg PO DAILY Patient Comments: TAKE ONE TABLET BY MOUTH EVERY DAY furosemide [Lasix] 20 mg tablet 20 mg PO DAILY Qty: 14 0RF Rx Instructions: start 03/10/23 spironolactone 50 mg tablet 50 mg PO DAILY Qty: 14 0RF Rx Instructions: start 03/09/23 albuterol sulfate [Ventolin HFA] 90 mcg/actuation HFA aerosol inhaler 2 puff inhalation QID PRN magnesium oxide 400 mg (241.3 mg magnesium) Tablet 400 mg PO DAILY Brilinta 90 mg Tablet 90 mg PO BID Qty: 60 0RF ondansetron 4 mg Tablet,Disintegrating 4 mg PO Q8H PRN PRN (Reason: nausea and vomiting) Qty: 30 0RF carvedilol 6.25 mg tablet 6.25 mg PO BID Qty: 60 0RF Patient Comments: TAKE ONE TABLET BY MOUTH TWICE A DAY scopolamine base [Transderm-Scop] 1 mg over 3 days patch 3 day 1 patch transdermal Q3D Qty: 4 0RF atorvastatin 20 mg tablet 100 mg PO DAILY Qty: 0 0RF Patient Comments: Pt states she takes 100mg daily HPI General Date/Time Provider Initiated Documentation: 09/04/23 10:34. HPI Narrative: At this pointMDM This is a chronically ill appearing normothermic and not tachycardic 68-year-old female with shortness of breath chest pain and recent cardiac stents concerning for the possibility of NSTEMI given nonischemic ECG. No significant pericardial effusion on limited bedside echocardiogram and not hypotensive nor tachycardic so my suspicion for tamponade is low. Patient does have a history of COPD however is not wheezing and has no increased sputum production so my suspicion for COPD exacerbation is low. No history of emesis so doubt esophageal rupture. Equal breath sounds and no history of trauma so doubt pneumothorax. Given shortness of breath and recent procedure patient is higher risk for PE so we will obtain a D-dimer. We utilized a cut off of 1000 based on years criteria. Patient was reportedly anemic 2 weeks ago and had some black stool so we will ensure that she has not become anemic again. Anticipate touching base with [facility] cardiology following troponin testing. No cough nor fevers to suggest pneumonia. No tearing quality to suggest aortic dissection. No pain out of proportion to suggest necrotizing soft tissue infection. Given no unintentional weight gain or lower extremity swelling my suspicion is low for acute CHF exacerbation. Will attempt treatment with nitroglycerin. 12:47 PM D-dimer resulted at 679 ng/mL FEU based on years criteria will consider this negative.Basic metabolic panel showing no ROMEO mild hyperglycemia but no anion gap normal bicarbonate??not consistent with DKA. Moderately elevated proBNP similar to prior normal reassuring magnesium. Troponin returned positive at 117 ng/L for which we will call cardiology at [facility]. CBC with no leukocytosis. Moderate normocytic anemia with a hemoglobin of 8.8 improved compared to hemoglobin obtained 5 days ago at [facility] which was 8.3. New thrombocytopenia with platelet count of 464,000. 1:27 PM I spoke to CARLY Vee from cards at [facility]. She felt that the mildly elevated troponin might be the result of her LHC last week but she felt that the patient would be well served being transfer back to [facility] with the accepting physician being Dr. Sam. Bed likely to be available later today so we will hold the patient in the ED. Will call back [facility] if patient is markedly elevated repeat troponin. She advised deferring time. Will provide additional aspirin given the patient takes 81 mg a day. Chronic conditions affecting the care of the patient: Diabetes atherosclerotic coronary disease History obtained from an outside historian: N/A External record review: [facility] EMR showing obesity heart failure with reduced ejection fraction, atherosclerotic coronary artery disease and NSTEMI. [Diagnostic interpretations performed by me:] [Per my independent interpretation chest x-ray shows:] No acute cardiopulmonary process [Per my independent interpretation EKG shows:] ECG showing narrow complex normal sinus rhythm at a rate of 91. Normal axis. Intervals within normal limits. No ST segment abnormalities. No T wave inversions. Significant artifact in V6 interferes with interpretation. Appears similar to prior dated June 2023. Also appears similar to prior in [facility] EMR dated August 28, 2023. No acute injury pattern. Medications: Aspirin Social determinants of health affecting disposition: N/A Management discussed with: Cardiology [facility] Treatment/interventions considered: N/A Response to therapies provided: Improved pain status post nitroglycerin HPI This is a 68-year-old female with a history of type I NSTEMI status post PCI to left circumflex earlier this year, ischemic cardiomyopathy, hypertension, type 2 diabetes, prior CVA, and now 7 days status post PCI to LAD complicated by coronary perforation arriving to the emergency department via private vehicle in the setting of chest pain. Patient reports that since being discharged from the hospital 5 days ago she has had consistent left-sided chest pain that radiates into her left back. Patient has not taken any falls. She does feel short of breath. She has not had any increased sputum. She does feel nauseous but denies vomiting fevers dysuria and frequency. She does say also that 2 weeks ago she had some black stools and had a hemoglobin of 4 at [facility] for which she was hospitalized and received 2 units packed red blood cells. She reports that she has been constipated for the past several days and had a small bowel movement this morning MiraLAX. She has not taken any recent falls. Patient reportedly lives with her son. Exam General: Well-appearing in no acute distress speaking in complete sentences. Head: Normocephalic, atraumatic. Eye: Extraocular eye movements intact. No conjunctival injection. No scleral icterus. Ear, nose, mouth, throat: Grossly normal inspection. Normal voice, handling secretions normally. Neck: Trachea midline. Cardiovascular: Well-perfused distal extremities. Regular rate and rhythm. No murmurs Respiratory: Nonlabored respiration. Clear lungs bilaterally no unintentional weight loss Lower extremity swelling Gastrointestinal: Nondistended abdomen. Musculoskeletal: No significant lower extremity pitting edema. Moving all 4 extremities spontaneously. Skin: Normal for age and race, grossly normal temperature and turgor. No acute rash. Neurologic: Alert and appropriate, no apparent acute deficits. Psychiatric: Mood and manner are appropriate. Grooming and personal hygiene are appropriate. Related Data Home Medications Medication Instructions Recorded Confirmed nitroglycerin 0.4 mg sublingual 0.4 mg sublingual Q5M PRN 05/27/21 09/04/23 tablet pen needle, diabetic 32 gauge x #50 ea 05/27/21 09/04/23 5/32 (BD Ultra-Fine Lexus Pen Needle) insulin glargine 100 unit/mL (3 See Rx Instructions subcut 02/17/22 09/04/23 mL) subcutaneous pen (Basaglar DIRECTED KwikPen U-100 Insulin) Oxygen #1 ea 10/10/22 09/04/23 budesonide-formoterol HFA 160 2 puff inhalation BID #10.2 grams 10/20/22 09/04/23 mcg-4.5 mcg/actuation aerosol inhaler (Symbicort) tiotropium bromide 2.5 2 inh inhalation QAM #4 grams 10/20/22 09/04/23 mcg/actuation mist for inhalation (Spiriva Respimat) aspirin 81 mg tablet,delayed 81 mg PO DAILY 03/09/23 09/04/23 release docusate sodium 100 mg capsule 100 mg PO DAILY 03/09/23 09/04/23 duloxetine 30 mg capsule,delayed 30 mg PO DAILY 03/09/23 09/04/23 release furosemide 20 mg tablet (Lasix) 20 mg PO DAILY #14 tabs 03/09/23 09/04/23 levothyroxine 100 mcg tablet 100 mcg PO DAILY 03/09/23 09/04/23 spironolactone 50 mg tablet 50 mg PO DAILY #14 tabs 03/09/23 09/04/23 magnesium oxide 400 mg (241.3 mg 400 mg PO DAILY 03/25/23 09/04/23 magnesium) tablet albuterol sulfate 90 mcg/actuation 2 puff inhalation QID PRN 05/13/23 09/04/23 aerosol inhaler (Ventolin HFA) magnesium oxide 400 mg (241.3 mg 400 mg PO DAILY 05/13/23 07/09/23 magnesium) tablet carvedilol 6.25 mg tablet 6.25 mg PO BID #60 tabs 05/15/23 07/09/23 ondansetron 4 mg disintegrating 4 mg PO Q8H PRN PRN nausea and 05/15/23 09/04/23 tablet vomiting #30 tabs ticagrelor 90 mg tablet (Brilinta) 90 mg PO BID #60 tabs 05/15/23 09/04/23 scopolamine base 1 mg over 3 days 1 patch transdermal Q3D #4 ea 05/16/23 07/09/23 transdermal patch (Transderm-Scop) atorvastatin 20 mg tablet 100 mg (5 x 20 mg) PO DAILY #0 06/12/23 09/04/23 tab-caps albuterol sulfate 2.5 mg/3 mL 2.5 mg inhalation Q4H PRN 07/01/23 09/04/23 (0.083 %) solution for nebulization lorazepam 1 mg tablet 1 mg PO TID PRN 07/01/23 09/04/23 ipratropium 0.5 mg-albuterol 3 mg 3 ml inhalation Q4H PRN wheezing 08/04/23 09/04/23 (2.5 mg base)/3 mL nebulization #540 mL soln buspirone 5 mg tablet 5 mg PO TID 09/04/23 09/04/23 ferrous fumarate 324 mg (106 mg 324 mg PO TID 09/04/23 09/04/23 iron) tablet (Ferrocite) metoprolol succinate 50 mg 50 mg PO DAILY 09/04/23 09/04/23 tablet,extended release 24 hr omeprazole 40 mg capsule,delayed 40 mg PO DAILY 09/04/23 09/04/23 release roflumilast 500 mcg tablet 500 mcg PO DAILY #90 tabs 09/04/23 09/04/23 sennosides 8.6 mg capsule (senna) 17.2 mg PO DAILY 09/04/23 09/04/23 Previous Rx's Medication Instructions Recorded Oxygen #1 ea 10/10/22 budesonide-formoterol HFA 160 2 puff inhalation BID #10.2 grams 10/20/22 mcg-4.5 mcg/actuation aerosol inhaler (Symbicort) tiotropium bromide 2.5 2 inh inhalation QAM #4 grams 10/20/22 mcg/actuation mist for inhalation (Spiriva Respimat) furosemide 20 mg tablet (Lasix) 20 mg PO DAILY #14 tabs 03/09/23 spironolactone 50 mg tablet 50 mg PO DAILY #14 tabs 03/09/23 carvedilol 6.25 mg tablet 6.25 mg PO BID #60 tabs 05/15/23 ondansetron 4 mg disintegrating 4 mg PO Q8H PRN PRN nausea and 05/15/23 tablet vomiting #30 tabs ticagrelor 90 mg tablet (Brilinta) 90 mg PO BID #60 tabs 05/15/23 scopolamine base 1 mg over 3 days 1 patch transdermal Q3D #4 ea 05/16/23 transdermal patch (Transderm-Scop) atorvastatin 20 mg tablet 100 mg (5 x 20 mg) PO DAILY #0 06/12/23 tab-caps ipratropium 0.5 mg-albuterol 3 mg 3 ml inhalation Q4H PRN wheezing 08/04/23 (2.5 mg base)/3 mL nebulization #540 mL soln roflumilast 500 mcg tablet 500 mcg PO DAILY #90 tabs 09/04/23 Allergies Allergy/AdvReac Type Severity Reaction Status Date / Time cephalexin monohydrate Allergy Severe Tongue Unverified 09/04/23 09:24 [From Keflex] swelling, difficult to breath Macrolide Antibiotics Allergy Severe facial Verified 09/04/23 09:24 swelling Penicillins Allergy Severe Swelling, Unverified 09/04/23 09:24 throat closes up azithromycin Allergy Intermediate GI upset, Unverified 09/04/23 09:24 itching codeine Allergy Intermediate Skin Rash, Unverified 09/04/23 09:24 itching Latex, Natural Rubber AdvReac Severe Blister Unverified 09/04/23 09:24 General POLI: 3 PFSH All Active Problems (Updated 09/04/23 @ 12:51 by Giovanni White MD) Normocytic anemia (Acute) Thrombocytopenia (Chronic) Myocardial injury (Acute) COPD (chronic obstructive pulmonary disease) (Chronic) Inspiratory stridor (Acute) Dizziness (Acute) Occlusion of right vertebral artery (Acute) Carotid stenosis, right (Acute) DM type 2 (diabetes mellitus, type 2) (Acute) Cerebellar infarct (Acute) Chronic hypoxemic respiratory failure (Chronic) Hypersomnia with sleep apnea (Chronic) Chronic tracheobronchitis (Chronic) Chronic ischemic heart disease (Chronic) Obstructive sleep apnea syndrome in adult (Acute) Medical History Abdominal pain Acute allergic mucoid otitis media Allergic asthma Anxiety ASCVD (arteriosclerotic cardiovascular disease) Back pain Chest pain Chronic bronchitis with emphysema Chronic kidney disease Constipation COPD (chronic obstructive pulmonary disease) COPD exacerbation Depression Disorder of hyperalimentation Disorder of trunk Diverticulitis of colon Dyspnea GERD (gastroesophageal reflux disease) GERD (gastroesophageal reflux disease) History of COVID-19 02/16/2021 Hyperlipidemia Hypersomnia Hypertension Hypothyroidism Idiopathic osteoarthritis Joint pain Morbid obesity Nicotine dependence, cigarettes, uncomplicated Non-compliance with treatment Pain in right knee Personal history of colonic polyps Right lower quadrant pain Snoring Spondylosis of lumbar region without myelopathy or radiculopathy Synovial cyst of popliteal space Tobacco abuse Tracheobronchitis Tubular adenoma of colon Urinary incontinence, mixed Vocal cord dysfunction following prolonged intubation 12/2022 Surgical History Appendectomy 1980 section x2 Cholecystectomy 04/23/2012 Colonoscopy - MAC (06/13/16) EGD - MAC (06/13/16) History of hemorrhoidectomy 1999 History of tubal ligation 1980 Tracheostomy status for prolonged intubation at [facility] 01/2023, removed 01/2023 Family History Mother Hypertension COPD (chronic obstructive pulmonary disease) Renal failure syndrome Father Hypertension COPD (chronic obstructive pulmonary disease) Coronary artery disease Social History Smoking/Tobacco Use Status: Former Tobacco Use Quit Date: 12/10/22 Tobacco: How many years used: 50 Smoking risk assessment performed?: Yes Alcohol Intake: never Drug use: Daily Substance use type: does not use Housing: house Communication Needs: Corrective Lenses Pets and animals: Yes (2 dogs, 1 cat) Do you feel safe at home: Yes Do you feel safe in your relationship?: Yes POCUS Exam (ED) Limited Cardiac Exam DATE OF EXAM: 09/04/23 TIME OF EXAM: 11:12 PROVIDER THAT PERFORMED THE STUDY: Giovanni White IS THIS A REPEAT EXAM DURING THIS ENCOUNTER: no REASON FOR EXAM: Chest pain VISUALIZED STRUCTURES: Four Chambers, Left ventricle, LVOT and Interventricular septum VIEW OBTAINED: Apical 4-Chamber, Parasternal long-axis and Subxiphoid PERTINENT FINDINGS/IMPRESSION: LV dysfunction and Other (Moderate squeeze, aortic outflow track less than 4 cm, RV less than LV, no significant pericardial effusion); No pericardial effusion and No RV dilation INCIDENTAL FINDINGS: Moderate squeeze, aortic outflow track less than 4 cm, RV less than LV, no significant pericardial effusion Exam complete
[2023-09-04] MEDS: nitroGLYcerin 0.4 MG TAB SL (11:44)
[2023-09-04 12:04] LABS: Abs Immature Grans 0.04 10^3/uL (0.0-0.06); Absolute Basophil Count 0.04 10^3/uL (0.0-0.2); Absolute Eosinophil Count 0.06 10^3/uL (0.0-0.7); Absolute Lymphocyte Count 1.82 10^3/uL (1.2-3.4); Absolute Monocyte Count 0.48 10^3/uL (0.1-0.8); Absolute Neutrophil Count 5.55 10^3/uL (1.2-6.7); Basophils % 0.5; Eosinophils % 0.8; HGB 8.8 g/dL (11.2-15.7); Immature Grans % 0.5; Lymphocytes % 22.8; MCH 25.8 pg (27.0-33.0); MCHC 30.3 % (32.0-36.0); MCV 85 fL (80-95); MPV 8.9 fL (8.0-11.0); Neutrophils % 69.4; Platelet Count 464 10^3/uL (130-400); RBC 3.41 10^6/uL (3.93-5.22); RDW 16.5 % (11.7-14.6); RDW-SD 51.8 fL; WBC 7.99 10^3/uL (4.4-10.8)
[2023-09-04 12:40] LABS: BUN 18 mg/dL (7-18); Calcium 9.5 mg/dL (8.5-10.1); Chloride 97 mmol/L (98-107); D-Dimer 679 ng/mlFEU (<500); Estimated GFR 61.75 (mL/min/1.73m2); Glucose 170 mg/dL (74-106); Magnesium 2.2 mg/dL (1.8-2.4); NT-proBNP 1169 pg/mL (<300); Potassium 3.6 mmol/L (3.5-5.1); Sodium 134 mmol/L (136-145)
[2023-09-04 12:47] LABS: Troponin I 117 ng/L (<or=60)
--- NOTE | 2023-09-04 12:56 | DI.RAD_ITS ---
Exam(s) XR CHEST 2V PA LATERAL EXAM: XR CHEST 2V PA LATERAL CLINICAL HISTORY: Chest pain TECHNIQUE: 2D digital imaging was performed. COMPARISON: CR XR CHEST 2V PA LATERAL from 06/12/[address] NECK CHEST W from 07/28/2023 FINDINGS: HEART: No enlarged. Coronary artery stents. Aorta: Not dilated. PULMONARY VASCULATURE: Normal. LUNGS: Clear. PLEURAL SPACE: No pleural effusion or pneumothorax. BONE:Degenerative changes. IMPRESSION: No acute abnormality. DATA REPOSITORY: RADIATION DOSE DELIVERED:
[2023-09-04] MEDS: Aspirin 81 MG CHEW 243 MG CH ×2 (14:27→15:07)
[2023-09-04 16:07] LABS: Troponin I 114 ng/L (<or=60)
--- NOTE | 2023-09-04 16:32 | ED.PROG_ITS ---
Date of service: 09/04/23 Time of Service: 16:32 Medical Decision Making Care transition to myself from Dr. White. Please see his initial note regarding history, presentation and exam. In brief, patient is a pleasant 68-year-old female who underwent a cardiac catheterization with complication of coronary perforation last [place] [facility] Patient here for 1 week of chest pain. Her initial troponin was elevated at 115. At the time I assumed care, repeat troponin was pending which remains flat at 114. Patient remains asymptomatic. At the time I assumed care, patient has been accepted [place] [facility] and we are waiting for medic level transfer to be able to take the patient to their facility for definitive treatment. Patient remains asymptomatic, resting comfortably in stable condition. Patient transferred [place] [facility] [place] medic. Bed was confirmed. Sign Out Sign Out Data: Sign Out Comment: Please follow-up repeat troponin and call department if markedly elevated. Please also ensure patient is transferred [place] [facility] Last updated by Giovanni White MD at 09/04/23 15:51 Discharge Plan Disposition Patient Disposition: Transfer-Acute Inpatient Care Specific Acute Inpt Facility: [facility] Discharge Details Clinical Impression: Myocardial injury, Thrombocytopenia, Normocytic anemia Primary Care Provider: Jazmin Garcias ED Provider: Kat Palacios [place] Meds and New Rx's Prescriptions: No Action (DME) pen needle, diabetic [BD Ultra-Fine Lexus Pen Needle] 32 gauge x 5/32 needle See Rx Instructions .ROUTE .MEDSUPPLY Qty: 50 Rx Instructions: As directed nitroglycerin 0.4 mg tablet, sublingual 0.4 mg sublingual Q5M PRN Rx Instructions: do not exceed 3 doses per episode insulin glargine [Basaglar KwikPen U-100 Insulin] 100 unit/mL (3 mL) insulin pen See Rx Instructions subcut DIRECTED Patient Comments: 65 units in morning Rx Instructions: subcut as directed; metoprolol succinate 50 mg tablet extended release 24 hr 50 mg PO DAILY omeprazole 40 mg capsule,delayed release(DR/EC) 40 mg PO DAILY senna 8.6 mg capsule 17.2 mg PO DAILY buspirone 5 mg tablet 5 mg PO TID ferrous fumarate [Ferrocite] 324 mg (106 mg iron) tablet 324 mg PO TID Patient Comments: Pt taking bid with meals roflumilast 500 mcg tablet 500 mcg PO DAILY Qty: 90 12RF Rx Instructions: Start after the 250mcg dosage albuterol sulfate 2.5 mg /3 mL (0.083 %) solution for nebulization 2.5 mg continuous nebulization ONCE Qty: 3 0RF magnesium oxide 400 mg (241.3 mg magnesium) tablet 400 mg PO DAILY lorazepam 1 mg tablet 1 mg PO TID PRN Patient Comments: TAKE ONE TABLET BY MOUTH THREE TIMES A DAY NEEDED albuterol sulfate 2.5 mg /3 mL (0.083 %) solution for nebulization 2.5 mg inhalation Q4H PRN Patient Comments: INHALE ONE VIAL VIA NEBULIZER EVERY 4 HOURS NEEDED (DME) Oxygen Tank See Rx Instructions .ROUTE .MEDSUPPLY Qty: 1 0RF Rx Instructions: 3.5 LPM at night, 4LPM with exertion budesonide-formoterol [Symbicort] 160-4.5 mcg/actuation HFA aerosol inhaler 2 puff inhalation BID Qty: 10.2 12RF Spiriva Respimat 2.5 mcg/actuation mist 2 inh inhalation QAM Qty: 4 12RF Patient Comments: not on med list ipratropium-albuterol 0.5 mg-3 mg(2.5 mg base)/3 mL solution for nebulization 3 ml inhalation Q4H PRN (Reason: wheezing) Qty: 540 12RF aspirin 81 mg Tablet,Delayed Release (Dr/Ec) 81 mg PO DAILY docusate sodium 100 mg Capsule 100 mg PO DAILY duloxetine 30 mg Capsule,Delayed Release(Dr/Ec) 30 mg PO DAILY levothyroxine 100 mcg tablet 100 mcg PO DAILY Patient Comments: TAKE ONE TABLET BY MOUTH EVERY DAY furosemide [Lasix] 20 mg tablet 20 mg PO DAILY Qty: 14 0RF Rx Instructions: start 03/10/23 spironolactone 50 mg tablet 50 mg PO DAILY Qty: 14 0RF Rx Instructions: start 03/09/23 albuterol sulfate [Ventolin HFA] 90 mcg/actuation HFA aerosol inhaler 2 puff inhalation QID PRN magnesium oxide 400 mg (241.3 mg magnesium) Tablet 400 mg PO DAILY Brilinta 90 mg Tablet 90 mg PO BID Qty: 60 0RF ondansetron 4 mg Tablet,Disintegrating 4 mg PO Q8H PRN PRN (Reason: nausea and vomiting) Qty: 30 0RF carvedilol 6.25 mg tablet 6.25 mg PO BID Qty: 60 0RF Patient Comments: TAKE ONE TABLET BY MOUTH TWICE A DAY scopolamine base [Transderm-Scop] 1 mg over 3 days patch 3 day 1 patch transdermal Q3D Qty: 4 0RF atorvastatin 20 mg tablet 100 mg PO DAILY Qty: 0 0RF Patient Comments: Pt states she takes 100mg daily Discharge Data Discharge Date/Time-TO BE ENTERED AT DEPARTURE: 09/04/23 17:12
== END 2023-09-04 17:12 | disposition short-term general hospital (02) ==
PROVIDERS: Emergency Medicine; Emergency Provider Physician Assistant; PCP Nurse Practitioner Family
DX: I5A Non-ischemic myocardial injury (non-traumatic) (principal); D69.6 Thrombocytopenia, unspecified; D64.9 Anemia, unspecified; R06.02 Shortness of breath; I10 Essential (primary) hypertension; E11.9 Type 2 diabetes mellitus without complications; G47.30 Sleep apnea, unspecified; Z86.73 Personal history of transient ischemic attack (TIA), and cerebral infarction without residual deficits; Z79.4 Long term (current) use of insulin; Z79.82 Long term (current) use of aspirin; Z87.891 Personal history of nicotine dependence; Z20.822 Contact with and (suspected) exposure to COVID-19
CPT/HCPCS: 00123; 80048; 87635; 93005; 93308; 99285; 71046; 83735; 83880; 84484; 85025; 85379; 93010

== ENCOUNTER 2023-10-06 03:46 | Outpatient (CLI) | payer MEDICARE, MEDICAID, SELFPAY ==
[2023-10-06] MEDS: Methacholine 100 MG VIAL IH (11:54)
[2023-10-06] MEDS: Albuterol HFA 18 GM 200 PUFF INH IH (11:54)
[2023-10-06] MEDS: Inhaler, Assist Device 1 EACH MC (11:55)
--- NOTE | 2023-10-08 13:36 | W.PFT ---
Date of service: 10/06/23 Time of Service: 09:55 Pulmonary Function Test Result Indications: COPD Interpretation Spirometry: There is moderate airflow limitation. There was a 21% decrease in FEV1 with administration of 0.5mg/mL methacholine Lung Volumes: There is air trapping and hyperinflation Diffusion Capacity: Technically normal diffusion. Airway Pressure: Increased airways resistance Impression Moderate airflow obstruction with a positive methacholine challenge test Clinical Correlation therefore is recommended.
== END 2023-10-06 03:47 | disposition home or self-care (01) ==
LOC: RT 03:47
PROVIDERS: PCP Nurse Practitioner Family; Visit Provider Student in an Organized Health Care Education/Training Program
DX: J44.9 Chronic obstructive pulmonary disease, unspecified (principal)
CPT/HCPCS: 94060; 94070; 94726; 94729; 94010; J7674

== ENCOUNTER 2023-11-24 15:21 | Outpatient (REF) | payer MEDICARE, MEDICAID, SELFPAY ==
[2023-11-24 19:32] LABS: HCT 22.7 % (36.0-46.0); MCH 22.5 pg (27.0-33.0); MCHC 27.3 % (32.0-36.0); MCV 82 fL (80-95); MPV 9.7 fL (8.0-11.0); Platelet Count 414 10^3/uL (130-400); RBC 2.76 10^6/uL (3.93-5.22); RDW 17.2 % (11.7-14.6); RDW-SD 50.6 fL; WBC 7.02 10^3/uL (4.4-10.8)
[2023-11-24 19:40] LABS: HGB 6.2 g/dL (11.2-15.7)
[2023-11-24 19:59] LABS: ALT 15 U/L (14-59); AST 14 U/L (15-37); Albumin 3.6 g/dL (3.4-5.0); Alkaline Phosphatase 88 U/L (46-116); Anion Gap 9.9 mmol/L (3-11); BUN 17 mg/dL (7-18); Bilirubin, Direct 0.1 mg/dL (0.0-0.2); Bilirubin, Total 0.3 mg/dL (0.2-1.0); CO2 27.1 mmol/L (21.0-32.0); CREATININE 1.2 mg/dL (0.55-1.02); Calcium 9.4 mg/dL (8.5-10.1); Chloride 99 mmol/L (98-107); Estimated GFR 49.61 (mL/min/1.73m2); Glucose 258 mg/dL (74-106); Potassium 4.2 mmol/L (3.5-5.1); Sodium 136 mmol/L (136-145); Total Protein 7.9 g/dL (6.4-8.2)
[2023-11-24 20:38] LABS: Hemoglobin A1C 6.3 % (<5.7)
== END 2023-11-24 15:22 | disposition home or self-care (01) ==
LOC: NCHCN 15:21
PROVIDERS: PCP Nurse Practitioner Family; Visit Provider Nurse Practitioner Family
DX: E11.9 Type 2 diabetes mellitus without complications (principal); L29.8 Other pruritus; I10 Essential (primary) hypertension; R79.89 Other specified abnormal findings of blood chemistry; I25.5 Ischemic cardiomyopathy
CPT/HCPCS: 80048; 80076; 85027; 83036

== ENCOUNTER → 2023-12-03 12:28 | Outpatient (BNVA) | payer MEDICARE, MEDICAID, SELFPAY | PROVIDERS: PCP Nurse Practitioner Family; Referring Provider Nurse Practitioner Family; Visit Provider Physician Assistant Surgical | DX: J44.9 Chronic obstructive pulmonary disease, unspecified (principal); G47.33 Obstructive sleep apnea (adult) (pediatric); R06.1 Stridor | CPT/HCPCS: 99214 ==

== ENCOUNTER 2023-12-07 12:14 | Outpatient (CLI) | payer MEDICARE, MEDICAID, SELFPAY ==
[2023-12-07 10:38] LABS: Abs Immature Grans 0.04 10^3/uL (0.0-0.06); Absolute Basophil Count 0.09 10^3/uL (0.0-0.2); Absolute Eosinophil Count 0.23 10^3/uL (0.0-0.7); Absolute Lymphocyte Count 1.97 10^3/uL (1.2-3.4); Absolute Monocyte Count 0.48 10^3/uL (0.1-0.8); Absolute Neutrophil Count 6.03 10^3/uL (1.2-6.7); Eosinophils % 2.6; HCT 34.3 % (36.0-46.0); HGB 10.3 g/dL (11.2-15.7); Immature Grans % 0.5; Lymphocytes % 22.3; MCH 25.4 pg (27.0-33.0); MCV 85 fL (80-95); MPV 9.3 fL (8.0-11.0); Monocytes % 5.4; Neutrophils % 68.2; Platelet Count 261 10^3/uL (130-400); RBC 4.06 10^6/uL (3.93-5.22); RDW 19.2 % (11.7-14.6); RDW-SD 58.3 fL; WBC 8.84 10^3/uL (4.4-10.8)
[2023-12-07 11:14] LABS: Anion Gap 9.9 mmol/L (3-11); BUN 20 mg/dL (7-18); CO2 29.1 mmol/L (21.0-32.0); Calcium 9.4 mg/dL (8.5-10.1); Chloride 101 mmol/L (98-107); Estimated GFR 61.75 (mL/min/1.73m2); Glucose 121 mg/dL (74-106); Potassium 4.3 mmol/L (3.5-5.1); Sodium 140 mmol/L (136-145)
== END 2023-12-07 12:15 | disposition home or self-care (01) ==
LOC: LBO 12:22
PROVIDERS: PCP Nurse Practitioner Family; Visit Provider Nurse Practitioner Family
DX: D64.9 Anemia, unspecified (principal)
CPT/HCPCS: 36415; 80048; 85025

== ENCOUNTER → 2024-01-28 13:28 | Outpatient (BNVA) | payer MEDICARE, MEDICAID, SELFPAY | PROVIDERS: PCP Nurse Practitioner Family; Referring Provider Nurse Practitioner Family; Visit Provider Physician Assistant Surgical | DX: J45.909 Unspecified asthma, uncomplicated (principal) | CPT/HCPCS: 96372 ==

== ENCOUNTER → 2024-03-03 13:39 | Outpatient (BNVA) | payer MEDICARE, MEDICAID, SELFPAY | PROVIDERS: PCP Nurse Practitioner Family; Referring Provider Nurse Practitioner Family; Visit Provider Student in an Organized Health Care Education/Training Program | DX: G47.33 Obstructive sleep apnea (adult) (pediatric) (principal); R04.2 Hemoptysis; R06.1 Stridor; J44.9 Chronic obstructive pulmonary disease, unspecified | CPT/HCPCS: 99214 ==

== ENCOUNTER → 2024-06-06 12:40 | Outpatient (BNVA) | payer MEDICARE, MEDICAID, SELFPAY | PROVIDERS: PCP Nurse Practitioner Family; Referring Provider Nurse Practitioner Family; Visit Provider Physician Assistant Surgical | DX: J44.9 Chronic obstructive pulmonary disease, unspecified (principal); J45.909 Unspecified asthma, uncomplicated; Z87.891 Personal history of nicotine dependence; J38.02 Paralysis of vocal cords and larynx, bilateral; G47.33 Obstructive sleep apnea (adult) (pediatric) | CPT/HCPCS: 99214 ==

== ENCOUNTER 2024-06-15 20:07 | Outpatient (REF) | payer MEDICARE, MEDICAID, SELFPAY ==
[2024-06-15 20:35] LABS: HCT 32.1 % (36.0-46.0); HGB 10.1 g/dL (11.2-15.7); MCH 28.5 pg (27.0-33.0); MCHC 31.5 % (32.0-36.0); MCV 90 fL (80-95); MPV 10.1 fL (8.0-11.0); Platelet Count 287 10^3/uL (130-400); RBC 3.55 10^6/uL (3.93-5.22); RDW 13.3 % (11.7-14.6); RDW-SD 44.2 fL; WBC 7.77 10^3/uL (4.4-10.8)
[2024-06-15 20:52] LABS: Anion Gap 8.1 mmol/L (3-11); BUN 13 mg/dL (7-18); CO2 31.9 mmol/L (21.0-32.0); Calcium 9.2 mg/dL (8.5-10.1); Chloride 100 mmol/L (98-107); Estimated GFR 61.36 (mL/min/1.73m2); Glucose 164 mg/dL (74-106); Potassium 4.6 mmol/L (3.5-5.1); Sodium 140 mmol/L (136-145)
== END 2024-06-15 20:08 | disposition home or self-care (01) ==
LOC: NCHCN 20:07
PROVIDERS: PCP Nurse Practitioner Family; Visit Provider Nurse Practitioner Family
DX: E11.9 Type 2 diabetes mellitus without complications (principal); D64.9 Anemia, unspecified
CPT/HCPCS: 80048; 85027

== ENCOUNTER → 2024-09-26 13:29 | Outpatient (BNVA) | payer MEDICARE, MEDICAID, SELFPAY | PROVIDERS: PCP Nurse Practitioner Family; Referring Provider Nurse Practitioner Family; Visit Provider Physician Assistant Surgical | DX: J44.9 Chronic obstructive pulmonary disease, unspecified (principal); J45.909 Unspecified asthma, uncomplicated; G47.33 Obstructive sleep apnea (adult) (pediatric); R06.1 Stridor; Z87.891 Personal history of nicotine dependence | CPT/HCPCS: 99214 ==

== ENCOUNTER → 2024-10-10 13:15 | Outpatient (BNVA) | payer MEDICARE, MEDICAID, SELFPAY | PROVIDERS: PCP Nurse Practitioner Family; Referring Provider Nurse Practitioner Family; Visit Provider Surgery | DX: R10.9 Unspecified abdominal pain (principal); G89.29 Other chronic pain | CPT/HCPCS: 99214 ==

== ENCOUNTER → 2025-01-03 14:04 | Outpatient (BNVA) | payer MEDICARE, MEDICAID, SELFPAY | PROVIDERS: PCP Nurse Practitioner Family; Referring Provider Nurse Practitioner Family; Visit Provider Physician Assistant Surgical | DX: J44.9 Chronic obstructive pulmonary disease, unspecified (principal); J45.909 Unspecified asthma, uncomplicated; J38.02 Paralysis of vocal cords and larynx, bilateral; G47.33 Obstructive sleep apnea (adult) (pediatric) | CPT/HCPCS: 99214 ==

== ENCOUNTER 2025-01-16 21:10 | Emergency (ER) | payer MEDICARE, MEDICAID, SELFPAY ==
[2025-01-16] VITALS (23 sets, daily range): BP systolic 106–162; BP diastolic 28–66; PULSE 70–83; RESP 15–30; TEMP 36.3; O2SAT 81–100
--- NOTE | 2025-01-16 21:00 | RT.EKG_ITS ---
APPROVED REPORT Exam: Resting ECG Reason for Exam: Chest Pain Patient Location: E HR:76 bpm ECG Measurements Heart Rate 76 AXIS SD 138 P 61 QRSd 112 QRS -5 QT 411 T 29 QTc 463 Conclusion Sinus rhythm. 76 noraml axis no stemi
--- NOTE | 2025-01-16 21:15 | DI.CT_ITS ---
Exam(s) CT ABDOMEN PELVIS W EXAM: CT ABDOMEN PELVIS W CLINICAL HISTORY: ABD PAIN TECHNIQUE: Imaging Protocol: Axial computed tomography images with coronal and sagittal reformatted images were created and reviewed. CONTRAST MATERIAL: Intravenous: Omnipaque 350 Contrast volume:100 mL Oral: No COMPARISON: CT CT CHEST LOW DOSE CA SCREENING from 12/28/[address] CHEST LOW DOSE CA SCREENING from 02/24/[address] NECK CHEST W from 07/28/2023 FINDINGS: ABDOMEN: Lung Bases: Coronary artery calcifications are present. There is scarring in the lung bases. Liver: Normal density. No measurable mass. Portal, Superior Mesenteric, and Splenic Veins: Unremarkable. Gallbladder and Biliary Tract: Status post cholecystectomy. No significant biliary ductal dilatation . Pancreas: Normal density, no abnormal calcifications or inflammatory process. Spleen: Normal. Adrenals: There is unchanged nodularity of the left adrenal gland. This likely reflects an adenoma. The right adrenal gland is unremarkable. Kidneys: Normal size, contour and axis. No radiodense stones or obstructive uropathy. There are few t iny hypodensities in the kidneys. They are too small for further characterization, but likely reflec t small cysts. No follow-up is recommended. Abdominal Aorta: Abdominal portion non-dilated. Extensive atherosclerotic calcification is present. There is no evidence of occlusion. Bowel: There is diverticulosis of the colon without evidence of acute diverticulitis. There is no ev idence of bowel obstruction or bowel wall thickening. The stomach is incompletely distended limiting evaluation. There is no evidence of appendicitis. Peritoneal Cavity: No ascites, collection or mesenteric inflammatory response. No free air. Lymph Nodes: Within normal limits. Bones: Within normal limits for the patient's age. Soft Tissues: There is a small fat containing umbilical hernia. There is a small fat containing left inguinal hernia. PELVIS: Bladder: The urinary bladder is incompletely distended but grossly unremarkable. Reproductive Organs: The patient is status post hysterectomy. Lymph Nodes: Within normal limits. Bones: Within normal limits for the patient's age. IMPRESSION: No acute abdominal or pelvic process. RADIATION DOSE DELIVERED: 1,504.92mGy.cm Total DLP DATA REPOSITORY: All CT scans at this facility are submitted to the National Radiology Data Registry (NRDR) Dose Index Registry (DIR) with the [employer] ([employer]). RADIATION OPTIMIZATION: All CT scans at this facility use at least one of these dose optimization te chniques: automated exposure control; mA and/or kV adjustment per patient size (includes targeted exa ms where dose is matched to clinical indication); or iterative reconstruction.
--- NOTE | 2025-01-16 21:15 | DI.RAD_ITS ---
Exam(s) XR CHEST 1V IN DI DEPT EXAM: XR CHEST 1V IN DI DEPT CLINICAL HISTORY: SOB TECHNIQUE: 2D digital imaging was performed of the chest. One image was obtained. An AP view was ob tained. COMPARISON: CR XR CHEST 2V PA LATERAL from 09/04/2023 FINDINGS: MEDIASTINUM: Normal. HEART: Normal. PULMONARY VASCULATURE: Normal. LUNGS: No focal consolidating infiltrates. PLEURAL SPACE: No pleural effusion or pneumothorax. BONE:Within normal limits for the patient's age. There are marked degenerative changes seen at the ri ght glenohumeral joint. OTHER FINDINGS:There is again seen elevation of the right hemidiaphragm. IMPRESSION: No focal consolidating infiltrates. DATA REPOSITORY: RADIATION DOSE DELIVERED:
[2025-01-16] MEDS: Ondansetron 4 MG/2 ML VIAL IVP (21:36)
[2025-01-16 21:43] LABS: Abs Immature Grans 0.09 10^3/uL (0.0-0.06); Absolute Basophil Count 0.09 10^3/uL (0.0-0.2); Absolute Eosinophil Count 0.13 10^3/uL (0.0-0.7); Absolute Lymphocyte Count 2.26 10^3/uL (1.2-3.4); Absolute Monocyte Count 0.85 10^3/uL (0.1-0.8); Absolute Neutrophil Count 6.78 10^3/uL (1.2-6.7); Basophils % 0.9 %; Eosinophils % 1.3 %; HCT 31.7 % (36.0-46.0); HGB 9.9 g/dL (11.2-15.7); Immature Grans % 0.9 %; Lymphocytes % 22.2 %; MCH 25.3 pg (27.0-33.0); MCHC 31.2 % (32.0-36.0); MCV 81 fL (80-95); Monocytes % 8.3 %; Neutrophils % 66.4 %; Platelet Count 357 10^3/uL (130-400); RBC 3.91 10^6/uL (3.93-5.22)
[2025-01-16 21:57] LABS: Prothrombin Time 10.4 sec (9.1-11.1)
[2025-01-16 22:26] LABS: ALT 11 U/L (14-59); AST 10 U/L (15-37); Albumin 3.2 g/dL (3.4-5.0); Alkaline Phosphatase 124 U/L (46-116); Anion Gap 6.5 mmol/L (3-11); BUN 10 mg/dL (7-18); Bilirubin, Total 0.4 mg/dL (0.2-1.0); CO2 32.5 mmol/L (21.0-32.0); CREATININE 1.1 mg/dL (0.55-1.02); Calcium 9.3 mg/dL (8.5-10.1); Chloride 94 mmol/L (98-107); Estimated GFR 54.73 (mL/min/1.73m2); Glucose 90 mg/dL (74-106); Magnesium 2.1 mg/dL (1.8-2.4); Potassium 4.1 mmol/L (3.5-5.1); Sodium 133 mmol/L (136-145); Total Protein 7.3 g/dL (6.4-8.2); Troponin I 18 ng/L (<or=51)
[2025-01-16 22:32] LABS: Bilirubin Negative (Negative); Blood Trace-intact (Negative); Clarity Clear (Clear); Glucose Negative (Negative); Ketones Negative (Negative); Leukocyte Esterase Negative (Negative); Nitrite Negative (Negative); Specific Gravity 1.015 (1.005-1.025); Urobilinogen 0.2 mg/dL (Up to 0.2); pH 7.5 (5-8)
[2025-01-16 22:41] LABS: Bacteria Negative HPF (Negative); C & S Indicated? No; Casts Negative LPF (Negative); Crystals Negative HPF (Negative); Epithelial Cells Rare HPF (Negative); Mucus Negative (Negative); RBC 0-2 HPF (0-2); WBC 0-2 HPF (0-5)
[2025-01-16] MEDS: ACETAMINOPHEN 1,000 MG/100 ML BAG 400 MG (22:51)
[2025-01-16 23:00] LABS: Troponin I 18 ng/L (<or=51)
--- NOTE | 2025-01-16 23:06 | W.ED.GENAD ---
Discharge Plan Discharge Details Chief Complaint: Abd Prob Primary Care Provider: Jazmin Garcias ED Provider: Mark Clements Home Meds and New Rx's Prescriptions: No Action (DME) pen needle, diabetic [BD Ultra-Fine Lexus Pen Needle] 32 gauge x 5/32 needle See Rx Instructions .ROUTE .MEDSUPPLY Qty: 50 Rx Instructions: As directed senna 8.6 mg capsule 17.2 mg PO DAILY fluticasone propionate 50 mcg/actuation spray,suspension 1 spray intranasal DAILY Rx Instructions: administer into each nostril acetaminophen 500 mg capsule 1,000 mg PO Q12H PRN PRN omeprazole 40 mg capsule,delayed release(DR/EC) 40 mg PO DAILY nitroglycerin 0.4 mg tablet, sublingual 0.4 mg sublingual Q5M PRN Rx Instructions: do not exceed 3 doses per episode polyethylene glycol 3350 17 gram/dose powder 17 g PO DAILY budesonide-formoterol [Symbicort] 160-4.5 mcg/actuation HFA aerosol inhaler 2 puff inhalation BID Qty: 10.2 12RF albuterol sulfate 2.5 mg /3 mL (0.083 %) solution for nebulization 2.5 mg continuous nebulization ONCE Qty: 3 0RF magnesium oxide 400 mg (241.3 mg magnesium) tablet 400 mg PO DAILY lorazepam 1 mg tablet 1 mg PO TID PRN Patient Comments: TAKE ONE TABLET BY MOUTH THREE TIMES A DAY NEEDED albuterol sulfate 90 mcg/actuation HFA aerosol inhaler 2 puff inhalation Q6H PRN (Reason: shortness of breath or wheezing) Qty: 8.5 6RF metoprolol succinate 25 mg tablet extended release 24 hr 25 mg PO DAILY furosemide 40 mg tablet 40 mg PO DAILY fluoxetine 10 mg capsule 20 mg PO DAILY Rx Instructions: administer in the morning and at noon/midday insulin glargine [Lantus Solostar U-100 Insulin] 100 unit/mL (3 mL) insulin pen 70 unit subcut DAILY Metamucil 3.4 gram/5.4 gram powder 1 tbsp PO DAILY Qty: 660 0RF Rx Instructions: Mix 1 tablespoon with 8 ounces of water every day. Do this for 1 week, then increase to twice daily fluoxetine 40 mg capsule 40 mg PO DAILY spironolactone 50 mg tablet 50 mg PO DAILY cholecalciferol (vitamin D3) 25 mcg (1,000 unit) capsule 25 mcg PO DAILY ferrous gluconate 324 mg (37.5 mg iron) tablet 324 mg PO DAILY lamotrigine 25 mg tablet 50 mg PO BID docusate sodium 100 mg capsule 100 mg PO BID calcium carbonate 500 mg calcium (1,250 mg) tablet,chewable 500 mg PO DAILY atorvastatin 80 mg tablet 80 mg PO DAILY melatonin 3 mg capsule 3 mg PO HS PRN (DME) Oxygen Tank See Rx Instructions .ROUTE .MEDSUPPLY Qty: 1 0RF Rx Instructions: 3.5 LPM at night, 4LPM with exertion Incruse Ellipta 62.5 mcg/actuation blister with device 1 inh inhalation DAILY Qty: 30 12RF ipratropium-albuterol 0.5 mg-3 mg(2.5 mg base)/3 mL solution for nebulization 3 ml inhalation Q4H Qty: 540 12RF Rx Instructions: 3ML (one unit dose) via nebulizer every 4 hours while awake *Don't wake resident/resident wants to be awaken for 6am dose* roflumilast 500 mcg tablet 500 mcg PO DAILY Qty: 90 4RF psyllium husk 0.52 gram capsule 0.52 g PO DAILY Qty: 60 0RF aspirin 81 mg Tablet,Delayed Release (Dr/Ec) 81 mg PO DAILY docusate sodium 100 mg Capsule 100 mg PO DAILY levothyroxine 100 mcg tablet 100 mcg PO DAILY Patient Comments: TAKE ONE TABLET BY MOUTH EVERY DAY Brilinta 90 mg Tablet 90 mg PO BID Qty: 60 0RF HPI General Date/Time Provider Initiated Documentation: 01/16/25 21:26. Limitations to Documentation: no limitations. Information obtained by: patient and family. HPI Narrative: 69-year-old female with past medical history of vocal cord paralysis, COPD, diabetes, obesity, CVA, SARIAH presents for evaluation of abdominal pain for the last 3 days. Reports pain is in the right lower quadrant. Initially had some loose stool, but reports normal bowel movements. No dysuria. No fever or vomiting. But has had significant nausea and poor oral intake. She reports that she has been having a nosebleed as well for the last couple of days and coughed up some blood this morning and was not sure if that might be just blood from her nose. Related Data Home Medications ?Medication ?Instructions ?Recorded ?Confirmed pen needle, diabetic 32 gauge x #50 ea 05/27/21 01/16/25 (BD Ultra-Fine Lexus Pen Needle) Oxygen #1 ea 10/10/22 01/16/25 aspirin 81 mg tablet,delayed 81 mg PO DAILY 03/09/23 01/16/25 release docusate sodium 100 mg capsule 100 mg PO DAILY 03/09/23 01/16/25 levothyroxine 100 mcg tablet 100 mcg PO DAILY 03/09/23 01/16/25 magnesium oxide 400 mg (241.3 mg 400 mg PO DAILY 03/25/23 01/16/25 magnesium) tablet ticagrelor 90 mg tablet (Brilinta) 90 mg PO BID #60 tabs 05/15/23 01/16/25 lorazepam 1 mg tablet 1 mg PO TID PRN 07/01/23 01/16/25 sennosides 8.6 mg capsule (senna) 17.2 mg PO DAILY 09/04/23 01/16/25 acetaminophen 500 mg capsule 1,000 mg PO Q12H PRN PRN 12/03/23 01/16/25 fluticasone propionate 50 1 spray intranasal DAILY 12/03/23 01/16/25 mcg/actuation nasal spray,suspension albuterol sulfate 90 mcg/actuation 2 puff inhalation Q6H PRN 03/14/24 01/16/25 aerosol inhaler shortness of breath or wheezing #8.5 grams budesonide-formoterol HFA 160 2 puff inhalation BID #10.2 grams 06/06/24 01/16/25 mcg-4.5 mcg/actuation aerosol inhaler (Symbicort) nitroglycerin 0.4 mg sublingual 0.4 mg sublingual Q5M PRN 06/06/24 01/16/25 tablet omeprazole 40 mg capsule,delayed 40 mg PO DAILY 06/06/24 01/16/25 release polyethylene glycol 3350 17 17 g PO DAILY 06/06/24 01/16/25 gram/dose oral powder fluoxetine 10 mg capsule 20 mg PO DAILY 10/10/24 01/16/25 furosemide 40 mg tablet 40 mg PO DAILY 10/10/24 01/16/25 insulin glargine 100 unit/mL (3 70 unit subcut DAILY 10/10/24 01/16/25 mL) subcutaneous pen (Lantus Solostar U-100 Insulin) metoprolol succinate 25 mg 25 mg PO DAILY 10/10/24 01/16/25 tablet,extended release 24 hr psyllium husk 3.4 gram/5.4 gram 1 tbsp PO DAILY #660 grams 10/10/24 01/16/25 oral powder (Metamucil) umeclidinium 62.5 mcg/actuation 1 inh inhalation DAILY #30 ea 12/06/24 01/16/25 blister powder for inhalation (Incruse Ellipta) ipratropium 0.5 mg-albuterol 3 mg 3 ml inhalation Q4H wheezing #540 01/02/25 01/16/25 (2.5 mg base)/3 mL nebulization mL soln roflumilast 500 mcg tablet 500 mcg PO DAILY #90 tabs 01/02/25 01/16/25 atorvastatin 80 mg tablet 80 mg PO DAILY 01/03/25 01/16/25 calcium carbonate 500 mg PO DAILY 01/03/25 01/16/25 cholecalciferol (vitamin D3) 25 25 mcg PO DAILY 01/03/25 01/16/25 mcg (1,000 unit) capsule docusate sodium 100 mg capsule 100 mg PO BID 01/03/25 01/16/25 ferrous gluconate 324 mg (37.5 mg 324 mg PO DAILY 01/03/25 01/16/25 iron) tablet fluoxetine 40 mg capsule 40 mg PO DAILY 01/03/25 01/16/25 lamotrigine 25 mg tablet 50 mg PO BID 01/03/25 01/16/25 melatonin 3 mg capsule 3 mg PO HS PRN 01/03/25 01/16/25 spironolactone 50 mg tablet 50 mg PO DAILY 01/03/25 01/16/25 psyllium husk 0.52 gram capsule 0.52 g PO DAILY #60 caps 01/09/25 01/16/25 Previous Rx's ?Medication ?Instructions ?Recorded Oxygen #1 ea 10/10/22 ticagrelor 90 mg tablet (Brilinta) 90 mg PO BID #60 tabs 05/15/23 albuterol sulfate 90 mcg/actuation 2 puff inhalation Q6H PRN 05/06/24 aerosol inhaler shortness of breath or wheezing #8.5 grams budesonide-formoterol HFA 160 2 puff inhalation BID #10.2 grams 06/06/24 mcg-4.5 mcg/actuation aerosol inhaler (Symbicort) psyllium husk 3.4 gram/5.4 gram 1 tbsp PO DAILY #660 grams 10/10/24 oral powder (Metamucil) umeclidinium 62.5 mcg/actuation 1 inh inhalation DAILY #30 ea 12/06/24 blister powder for inhalation (Incruse Ellipta) ipratropium 0.5 mg-albuterol 3 mg 3 ml inhalation Q4H wheezing #540 01/02/25 (2.5 mg base)/3 mL nebulization mL soln roflumilast 500 mcg tablet 500 mcg PO DAILY #90 tabs 01/02/25 psyllium husk 0.52 gram capsule 0.52 g PO DAILY #60 caps 01/09/25 Allergies Allergy/AdvReac Type Severity Reaction Status Date / Time cephalexin monohydrate (From Allergy Severe Tongue Unverified 01/03/25 14:17 Keflex) swelling, difficult to breath codeine Allergy Severe Anaphylaxis Unverified 01/03/25 14:17 lisinopril Allergy Severe high Verified 01/03/25 14:17 criticality Macrolide Antibiotics Allergy Severe facial Verified 01/03/25 14:17 swelling Penicillins Allergy Severe Swelling, Unverified 01/03/25 14:17 throat closes up azithromycin Allergy Intermediate GI upset, Unverified 01/03/25 14:17 itching insulin detemir (From Allergy Unknown Other (See Verified 01/03/25 14:17 Levemir U-100 Insulin) Comment) Latex, Natural Rubber AdvReac Severe Blister Unverified 01/03/25 14:17 General Stated Complaint: Abd Prob POLI: 3 Exam Narrative Exam Narrative: Review of Systems: All systems reviewed & are unremarkable except as noted in HPI and below Obese NCAT Weak voice, no stridor RRR no murmur Unlabored respiratory effort clear bilaterally Nondistended abdomen soft, right lower quadrant tenderness No rashes or lesions. Course Vital Signs Vital signs: Vital Signs Temperature 36.3 C L 01/16/25 21:16 Pulse 77 01/16/25 21:16 Respiratory Rate 30 H 01/16/25 21:16 Blood Pressure 159/59 H 01/16/25 21:16 Pulse Oximetry 100 01/16/25 21:16 Temperature 36.3 C L 01/16/25 21:22 Temperature Source Oral 01/16/25 21:22 Pulse 77 01/16/25 21:22 Respiratory Rate 30 H 01/16/25 21:22 Blood Pressure 159/59 H 01/16/25 21:22 Blood Pressure Position Sitting 01/16/25 21:22 Pulse Oximetry 100 01/16/25 21:22 Oxygen Delivery Method Room Air 01/16/25 21:22 Oxygen Flow Rate 0 01/16/25 21:22 Pain Level 10 01/16/25 21:32 Lab/Test Results Lab/Test Results: Laboratory Tests Range/Units 01/16/25 01/16/25 01/16/25 21:38 22:26 22:36 WBC (4.4-10.8) 10^3/uL 10.20 RBC (3.93-5.22) 10^6/uL 3.91 L Hgb (11.2-15.7) g/dL 9.9 L Hct (36.0-46.0) % 31.7 L MCV (80-95) fL 81 MCH (27.0-33.0) pg 25.3 L MCHC (32.0-36.0) % 31.2 L RDW (11.7-14.6) % 16.0 H Plt Count (130-400) 10^3/uL 357 MPV (8.0-11.0) fL 9.0 Immature Gran % % 0.9 Neutrophils % % 66.4 Lymphocytes % % 22.2 Monocytes % % 8.3 Eosinophils % % 1.3 Basophils % % 0.9 Nucleated RBC % (0.0-0.3) % 0.0 Absolute Neutrophils (1.2-6.7) 10^3/uL 6.78 H Absolute Lymphocytes (1.2-3.4) 10^3/uL 2.26 Absolute Monocytes (0.1-0.8) 10^3/uL 0.85 H Absolute Eosinophils (0.0-0.7) 10^3/uL 0.13 Absolute Basophils (0.0-0.2) 10^3/uL 0.09 PT (9.1-11.1) sec 10.4 INR (0.9-1.1) 1.0 APTT (20.6-30.2) sec 24.0 Sodium (136-145) mmol/L 133 L Potassium (3.5-5.1) mmol/L 4.1 Chloride (98-107) mmol/L 94 L Carbon Dioxide (21.0-32.0) mmol/L 32.5 H Anion Gap (3-11) mmol/L 6.5 BUN (7-18) mg/dL 10 Creatinine (0.55-1.02) mg/dL 1.1 H Est GFR (CKD-EPI 2020) (mL/min/1.73m2) 54.73 Glucose (74-106) mg/dL 90 Calcium (8.5-10.1) mg/dL 9.3 Magnesium (1.8-2.4) mg/dL 2.1 Total Bilirubin (0.2-1.0) mg/dL 0.4 AST (15-37) U/L 10 L ALT (14-59) U/L 11 L Alkaline Phosphatase (46-116) U/L 124 H Troponin I (<or=51) ng/L 18 18 Total Protein (6.4-8.2) g/dL 7.3 Albumin (3.4-5.0) g/dL 3.2 L Urine Color (Yellow) Yellow Urine Clarity (Clear) Clear Urine pH (5-8) 7.5 Ur Specific Elmo (1.005-1.025) 1.015 Urine Protein (Neg-Trace) mg/dL Trace Urine Ketones (Negative) mg/dL Negative Urine Blood (Negative) Trace-intact H Urine Nitrite (Negative) Negative Urine Bilirubin (Negative) Negative Urine Urobilinogen (Up to 0.2) mg/dL 0.2 Ur Leukocyte Esterase (Negative) Negative Urine RBC (0-2) HPF 0-2 Urine WBC (0-5) HPF 0-2 Ur Epithelial Cells (Negative) HPF Rare Urine Crystals (Negative) HPF Negative Urine Bacteria (Negative) HPF Negative Urine Casts (Negative) LPF Negative Urine Mucus (Negative) Negative Ur Culture Indicated? No Urine Glucose (Negative) mg/dL Negative Medical Decision Making Emergent evaluation of abdominal pain. Initial differential includes constipation, acute appendicitis, mesenteric ischemia less likely. Less likely to be ACS. EKG reviewed: Sinus 76 normal axis no acute ischemic changes. Patient's exam is fairly benign but her symptoms have been ongoing for the last 3 days. I did review her medical record and noted that she has some ongoing chronic abdominal pain thought to be secondary to gastroparesis and chronic diverticulosis. Medically complex and poor function at baseline. Lives in assisted living. Plan for lab work, serial troponin and CT imaging of the abdomen. 2300 Lab work reviewed, mild anemia consistent with baseline no leukocytosis. Renal function within normal limits. Urinalysis does not reveal infection. Serial troponins negative x 2. At this time disposition pending CT imaging and p.o. challenge. Quality:SDOH Health Related Social Needs: No Data to Display PFSH All Active Problems (Updated 09/08/24 @ 15:11 by Lana Abdi RN) Chronic abdominal pain (Acute) Vocal cord paralysis, bilateral partial (Acute) Asthma (Chronic) COPD (chronic obstructive pulmonary disease) (Chronic) Hemoptysis (Acute) COPD (chronic obstructive pulmonary disease) (Chronic) Inspiratory stridor (Acute) Dizziness (Acute) Occlusion of right vertebral artery (Acute) Carotid stenosis, right (Acute) DM type 2 (diabetes mellitus, type 2) (Acute) Cerebellar infarct (Acute) Chronic hypoxemic respiratory failure (Chronic) Hypersomnia with sleep apnea (Chronic) Chronic tracheobronchitis (Chronic) Chronic ischemic heart disease (Chronic) Obstructive sleep apnea syndrome in adult (Acute) Medical History Abdominal pain Acute allergic mucoid otitis media Allergic asthma Anxiety ASCVD (arteriosclerotic cardiovascular disease) Back pain Chest pain Chronic bronchitis with emphysema Chronic kidney disease Constipation COPD (chronic obstructive pulmonary disease) COPD exacerbation Depression Disorder of hyperalimentation Disorder of trunk Diverticulitis of colon Dyspnea GERD (gastroesophageal reflux disease) GERD (gastroesophageal reflux disease) History of COVID-19 02/16/2021 Hyperlipidemia Hypersomnia Hypertension Hypothyroidism Idiopathic osteoarthritis Joint pain Morbid obesity Nicotine dependence, cigarettes, uncomplicated Non-compliance with treatment Pain in right knee Personal history of colonic polyps Right lower quadrant pain Snoring Spondylosis of lumbar region without myelopathy or radiculopathy Synovial cyst of popliteal space Tobacco abuse Tracheobronchitis Tubular adenoma of colon Urinary incontinence, mixed Vocal cord dysfunction following prolonged intubation 12/2022 Surgical History Appendectomy 1981 section x2 Cholecystectomy 04/23/2012 Colonoscopy - MAC (06/13/16) EGD - MAC (06/13/16) History of hemorrhoidectomy 1999 History of tubal ligation 1980 Tracheostomy status for prolonged intubation at [facility] 01/2023, removed 01/2023 Family History Mother Hypertension COPD (chronic obstructive pulmonary disease) Renal failure syndrome Father Hypertension COPD (chronic obstructive pulmonary disease) Coronary artery disease Social History Smoking/Tobacco Use Status: Former Tobacco Use Quit Date: 12/10/22 Tobacco: How many years used: 50 Smoking risk assessment performed?: Yes Alcohol Intake: never Drug use: Daily Substance use type: does not use Housing: house Communication Needs: Corrective Lenses Pets and animals: Yes (2 dogs, 1 cat) Do you feel safe at home: Yes Do you feel safe in your relationship?: Yes
[2025-01-16] MEDS: Omnipaque 350 MG/ML 100 ML BTL IJ (23:14)
[2025-01-16] MEDS: Normal Saline Flush 10 ML SYR IVP (23:18)
[2025-01-16] MEDS: Normal Saline - Diluent 50 ML VIAL IJ (23:18)
--- NOTE | 2025-01-16 23:22 | W.EDPROG ---
Date of service: 01/16/25 Time of Service: 23:22 Medical Decision Making This patient was signed out to me. Please see previous notes for H&P and initial eval. In brief, 69yo F with hx COPD, DM, presenting for abdominal pain and nausea for three days. Labs reassuring/baseline. Signed out pending CT read and PO challenge. If no acute findings on CT and tolerating PO, would discharge home with antiemetic. CT read as below, no acute findings. PO challenged and tolerated well. On reassessment she remains well appearing with reassuring vital signs. Minimal right mid abdominal tenderness, no peritoneal signs. No lower abdominal/pelvic tenderness. Low suspion for ovarian pathology, would not transfer for US. Nausea somewhat improved after zofran though still present. Unclear etiology of symptoms, however appropriate for outpatient followup with PCP. Will discharge home with short course of zofran. Discharge instructions and return precautions were reviewed with patient and family who verbalized understanding. All questions were answered and she is in full agreement with the plan. Imaging Data Radiologic Study: Imaging: X-Ray and CT Scan Radiologist's impression: IMPRESSION: 1. Sigmoid diverticulosis. 2. Mild fatty infiltration of the liver. IMPRESSION: Bilateral lower lobe subsegmental atelectatic changes Lab Data Lab results reviewed: Yes I reviewed the patient's lab results. Quality:SDOH Health Related Social Needs: No Data to Display Discharge Plan Disposition Patient Disposition: Home Condition: Good Discharge Details Clinical Impression: Abdominal pain, Nausea Primary Care Provider: Jazmin Garcias ED Provider: Gretchen Hines Home Meds and New Rx's Prescriptions: New ondansetron 4 mg tablet,disintegrating 4 mg PO Q8H PRNQty: 15 0RF Continued (DME) pen needle, diabetic [BD Ultra-Fine Lexus Pen Needle] 32 gauge x 5/32 needle See Rx Instructions .ROUTE .MEDSUPPLY Qty: 50 Rx Instructions: As directed senna 8.6 mg capsule 17.2 mg PO DAILY fluticasone propionate 50 mcg/actuation spray,suspension 1 spray intranasal DAILY Rx Instructions: administer into each nostril acetaminophen 500 mg capsule 1,000 mg PO Q12H PRN PRN omeprazole 40 mg capsule,delayed release(DR/EC) 40 mg PO DAILY nitroglycerin 0.4 mg tablet, sublingual 0.4 mg sublingual Q5M PRN Rx Instructions: do not exceed 3 doses per episode polyethylene glycol 3350 17 gram/dose powder 17 g PO DAILY budesonide-formoterol [Symbicort] 160-4.5 mcg/actuation HFA aerosol inhaler 2 puff inhalation BID Qty: 10.2 12RF albuterol sulfate 2.5 mg /3 mL (0.083 %) solution for nebulization 2.5 mg continuous nebulization ONCE Qty: 3 0RF magnesium oxide 400 mg (241.3 mg magnesium) tablet 400 mg PO DAILY lorazepam 1 mg tablet 1 mg PO TID PRN Patient Comments: TAKE ONE TABLET BY MOUTH THREE TIMES A DAY NEEDED albuterol sulfate 90 mcg/actuation HFA aerosol inhaler 2 puff inhalation Q6H PRN (Reason: shortness of breath or wheezing) Qty: 8.5 6RF metoprolol succinate 25 mg tablet extended release 24 hr 25 mg PO DAILY furosemide 40 mg tablet 40 mg PO DAILY fluoxetine 10 mg capsule 20 mg PO DAILY Rx Instructions: administer in the morning and at noon/midday insulin glargine [Lantus Solostar U-100 Insulin] 100 unit/mL (3 mL) insulin pen 70 unit subcut DAILY Metamucil 3.4 gram/5.4 gram powder 1 tbsp PO DAILY Qty: 660 0RF Rx Instructions: Mix 1 tablespoon with 8 ounces of water every day. Do this for 1 week, then increase to twice daily fluoxetine 40 mg capsule 40 mg PO DAILY spironolactone 50 mg tablet 50 mg PO DAILY cholecalciferol (vitamin D3) 25 mcg (1,000 unit) capsule 25 mcg PO DAILY ferrous gluconate 324 mg (37.5 mg iron) tablet 324 mg PO DAILY lamotrigine 25 mg tablet 50 mg PO BID docusate sodium 100 mg capsule 100 mg PO BID calcium carbonate 500 mg calcium (1,250 mg) tablet,chewable 500 mg PO DAILY atorvastatin 80 mg tablet 80 mg PO DAILY melatonin 3 mg capsule 3 mg PO HS PRN (DME) Oxygen Tank See Rx Instructions .ROUTE .MEDSUPPLY Qty: 1 0RF Rx Instructions: 3.5 LPM at night, 4LPM with exertion Incruse Ellipta 62.5 mcg/actuation blister with device 1 inh inhalation DAILY Qty: 30 12RF ipratropium-albuterol 0.5 mg-3 mg(2.5 mg base)/3 mL solution for nebulization 3 ml inhalation Q4H Qty: 540 12RF Rx Instructions: 3ML (one unit dose) via nebulizer every 4 hours while awake *Don't wake resident/resident wants to be awaken for 6am dose* roflumilast 500 mcg tablet 500 mcg PO DAILY Qty: 90 4RF psyllium husk 0.52 gram capsule 0.52 g PO DAILY Qty: 60 0RF aspirin 81 mg Tablet,Delayed Release (Dr/Ec) 81 mg PO DAILY docusate sodium 100 mg Capsule 100 mg PO DAILY levothyroxine 100 mcg tablet 100 mcg PO DAILY Patient Comments: TAKE ONE TABLET BY MOUTH EVERY DAY Brilinta 90 mg Tablet 90 mg PO BID Qty: 60 0RF Discharge Instructions Instructions: Abdominal Pain, Adult ED, Nausea and Vomiting, Adult ED Additional Instructions: You can take tylenol over the counter for pain; follow the directions on the bottle. You can take ondansetron 4mg up to every 8 hours as needed for nausea. You can use Miralax for constipation. Increase the amount you take if it is not working- take up to 1 capful twice a day if needed. Call your primary care doctor in the morning to schedule an appointment to be seen within the next 72 hours to followup on your visit here. Return to the emergency department for new or worsening symptoms including new/different/worse abdominal pain, inability to keep down fluids, blood in your stool, or if you have any other concerns. Referrals: Jazmin Garcias [Primary Care Provider] -
[2025-01-16] MEDS: Albuterol/Ipratropium 3 ML UPD VIAL UPD (23:39)
[2025-01-17] VITALS (8 sets, daily range): BP systolic 109–128; BP diastolic 41–72; PULSE 71–143; RESP 18–22; TEMP 36.9; O2SAT 98
--- NOTE | 2025-01-17 01:23 | DI.VRAD_ITS ---
PROCEDURE INFORMATION: Exam: CT Abdomen And Pelvis With Contrast Exam date and time: 01/16/2025 11:13 PM Age: 69 years old Clinical indication: Abdominal pain; Generalized; Prior surgery; Surgery date: 6+ months; Surgery type: Appendectomy, cholecystectomy, tubal ligation, hemorrhoidectomy; Abd pain TECHNIQUE: Imaging protocol: Computed tomography of the abdomen and pelvis with contrast. Radiation optimization: All CT scans at this facility use at least one of these dose optimization techniques: automated exposure control; mA and/or kV adjustment per patient size (includes targeted exams where dose is matched to clinical indication); or iterative reconstruction. Contrast material: OMNIPAQUE 350; Contrast volume: 100 ml; Contrast route: INTRAVENOUS (IV); COMPARISON: CT CTA CHEST W AND/OR WO CONTRAST 03/09/2024 3:21 PM FINDINGS: Lungs: Bilateral lower lobe subsegmental atelectatic changes. Liver: Mild fatty infiltration of the liver. Gallbladder and biliary ducts: Status post cholecystectomy. Pancreas: Normal. No ductal dilation. Spleen: Normal. No splenomegaly. Adrenal glands: Normal. No mass. Kidneys and ureters: Normal. No hydronephrosis. Stomach and bowel: Sigmoid diverticulosis. No CT evidence for diverticulitis. Appendix: No evidence of appendicitis. Intraperitoneal space: Unremarkable. No free air. No significant fluid collection. Vasculature: Aortic vascular calcifications. Lymph nodes: Unremarkable. No enlarged lymph nodes. Urinary bladder: Unremarkable as visualized. Reproductive: Unremarkable as visualized. Bones/joints: Mild anterolisthesis of L4 in relation to L5. Soft tissues: Unremarkable. IMPRESSION: 1. Sigmoid diverticulosis. 2. Mild fatty infiltration of the liver. Dictated and Authenticated by: Ever Contreras MD. Orderin Tyree Woods MD
--- NOTE | 2025-01-17 01:24 | DI.VRAD_ITS ---
PROCEDURE INFORMATION: Exam: XR Chest Exam date and time: 01/16/2025 11:20 PM Age: 69 years old Clinical indication: Shortness of breath; SOB TECHNIQUE: Imaging protocol: Radiologic exam of the chest. Views: 1 view. COMPARISON: CT CTA CHEST W AND/OR WO CONTRAST 03/09/2024 3:21 PM FINDINGS: Lungs: Bilateral lower lobe subsegmental atelectatic changes. Pleural spaces: Unremarkable. No pleural effusion. No pneumothorax. Heart/Mediastinum: Unremarkable. No cardiomegaly. Bones/joints: Unremarkable. IMPRESSION: Bilateral lower lobe subsegmental atelectatic changes. Dictated and Authenticated by: Ever Contreras MD. Orderin Tyree Woods MD
[2025-01-17 01:33] LABS: Troponin I 13 ng/L (<or=51)
[2025-01-17] MEDS: LORazepam 1 MG TAB PO (01:53)
[2025-01-17] MEDS: Ondansetron O.D.T. 4 MG TABEF, 3 TABS/BTL PO (02:15)
== END 2025-01-17 02:25 | disposition home or self-care (01) ==
PROVIDERS: Emergency Medicine; Emergency Provider Student in an Organized Health Care Education/Training Program; PCP Nurse Practitioner Family
DX: R10.31 Right lower quadrant pain (principal); R11.0 Nausea; I10 Essential (primary) hypertension; E11.9 Type 2 diabetes mellitus without complications; Z86.79 Personal history of other diseases of the circulatory system
CPT/HCPCS: 00123; 36415; 36416; 80053; 82962; 93005; 94640; 96374; 99285; 71045; 74177; 81003; 81015; 83735; 84484; 85025; 85610; 85730; 93010; 99284; J0131; J2405; J3490; J7620

== ENCOUNTER → 2025-04-04 14:28 | Outpatient (BNVA) | payer MEDICARE, MEDICAID, SELFPAY | PROVIDERS: PCP Nurse Practitioner Family; Referring Provider Nurse Practitioner Family; Visit Provider Physician Assistant Surgical | DX: G47.33 Obstructive sleep apnea (adult) (pediatric) (principal); J44.9 Chronic obstructive pulmonary disease, unspecified; J45.909 Unspecified asthma, uncomplicated; J38.02 Paralysis of vocal cords and larynx, bilateral | CPT/HCPCS: 99214 ==

== ENCOUNTER → 2025-06-22 13:39 | Outpatient (BNVA) | payer MEDICARE, MEDICAID, SELFPAY | PROVIDERS: PCP Nurse Practitioner Family; Referring Provider Nurse Practitioner Family; Visit Provider Physician Assistant Surgical | DX: G47.33 Obstructive sleep apnea (adult) (pediatric) (principal); J44.89 Other specified chronic obstructive pulmonary disease; J38.02 Paralysis of vocal cords and larynx, bilateral; Z87.891 Personal history of nicotine dependence | CPT/HCPCS: 99214 ==

== ENCOUNTER → 2025-09-27 09:08 | Outpatient (BNVA) | payer MEDICARE, MEDICAID, SELFPAY | PROVIDERS: PCP Nurse Practitioner Family; Referring Provider Nurse Practitioner Family; Visit Provider Internal Medicine Pulmonary Disease | DX: J44.9 Chronic obstructive pulmonary disease, unspecified (principal); J45.909 Unspecified asthma, uncomplicated; Z87.891 Personal history of nicotine dependence | CPT/HCPCS: 99214 ==